=== PATIENT | female | born 1940 | race Caucasian/White ===

== ENCOUNTER 2016-12-07 06:40 | Inpatient (IN) | payer OTHER ==
[~2016-12-07] VITALS: Ht 162.6 cm; Wt 61.2 kg
[2016-12-07] VITALS (8 sets, daily range): BP systolic 132–194; BP diastolic 73–105; PULSE 56–82; TEMP 36.4–36.7; O2SAT 97–100; Ht 162.6 cm; Wt 61.2 kg
[~2016-12-07 06:40] MED LIST: ACET-1256 PO; ALBU1AER9 INH; AMLO-114 PO; ATEN50TA8 PO; ATV5 PO; FLUT0.0529 NAE; FLUT1INH3 PO; FURO-85 PO; GABA1CAP4 PO; IMD/2 PO; LISI40TA PO; MULT-506 PO; OMEG10007 PO; OXGN; SERT-234 PO; TEMA15CA4 PO; UMEC1AER PO
--- NOTE | 2016-12-07 06:52 | EMERGENCY ROOM VISIT NOTE ---
History Report prepared by Johanibjodi: Payton Green Under the Supervision of: Dr. Jose Frias M.D. First contact with patient: 06:43 Chief Complaint: FALL Stated Complaint: WEAK LEG/FALL History of Present Illness The patient is a 76 year old female who presents to the Emergency Room via ambulance from [place] with complaints of right sided weakness that began last night. This morning when the patient woke up to use the bathroom, she fell twice on her way to the bathroom. She notes that it took her about 35 minutes to get up from the ground during her fall within the past 2 hours. She attributes her falls to her right sided weakness. Denies loss of consciousness or any injuries from the fall. The patient reports that she "didn't feel right" a month ago causing a fall for which she was evaluated in the ED and discharged home. Denies headaches, neck pain, cough, respiratory symptoms, chest pain, melena, hematochezia, urinary symptoms, or other complaints. She is not on a blood thinner. She wears 2L nasal canula oxygen at home at all times. Source of History: patient, EMS Onset: last night Position: other (right side) Timing: other (persistent) Associated Symptoms: No LOC, No SOB, No chest pain, No headache, No hematochezia, No melena, No neck pain, No urinary symptoms Review of Systems See HPI for pertinent positives & negatives. A total of 10 systems reviewed and were otherwise negative. Past Medical & Surgical Medical Problems: (1) COPD (chronic obstructive pulmonary disease) (2) COPD (chronic obstructive pulmonary disease) (3) Crohn's disease (4) Depression (5) Ectopic (6) HLD (hyperlipidemia) (7) HTN (hypertension) (8) Osteoporosis (9) Right sided weakness Surgical Problems: (1) H/O colonoscopy (2) History of cataract surgery (3) History of esophagogastroduodenoscopy (EGD) (4) S/P laser trabeculoplasty of eye Old medical records were reviewed. Nurse's notes were reviewed and I agree with. Denies anticoagulation use. Denies diabetes. Family History FH: cancer FH: gallbladder disease FH: lung disease Kidney stones Social History Drug Use: none Marital Status: Housing Status: assisted living Occupation Status: retired Current/Historical Medications Scheduled Amlodipine (Norvasc), 10 MG PO DAILY Atenolol (Tenormin), 75 MG PO BID Fish Oil ([place]-3), 1 CAP PO DAILY Fluticasone Furoate (Inhalatio (Arnuity Ellipta), 1 PUFF PO DAILY Fluticasone Propionate (Nasal) (Flonase Allergy Relief), 2 SPRAYS ZBIGNIEW QPM Gabapentin (Gabapentin), 300 MG PO TID Lisinopril (Zestril), 40 MG PO DAILY Multivitamin (Multivitamin), 1 TAB PO DAILY Oxygen (Oxygen), 2.5 LITERS NA CONTINOUS Sertraline (Zoloft), 100 MG PO DAILY Temazepam (Restoril), 30 MG PO HS Umeclidinium-Vilanterol (Anoro Ellipta 62.5-25 Mcg/INH), 1 PUFF PO DAILY Scheduled PRN Acetaminophen (Tylenol), 1,000 MG PO Q6H PRN for Pain Albuterol Sulfate (Proair Respiclick), 2 PUFF INH Q4 PRN for SOB/Wheezing Loperamide Hcl (Imodium), 2 MG PO DAILY PRN for Diarrhea Lorazepam (Ativan *), 0.5 MG PO BID PRN for Anxiety Allergies Coded Allergies: No Known Allergies (Unverified , 06/20/16) Physical Exam Vital Signs Date Time Temp Pulse Resp B/P Pulse Ox O2 Delivery O2 Flow Rate FiO2 12/07/16 08:55 59 16 191/88 12/07/16 06:50 61 12/07/16 06:48 36.4 66 20 185/100 95 Nasal Cannula 3.0 Physical Exam General: Non-ill appearing older female, well developed well nourished in no acute distress. Normal speech HEENT: Normal cephalic atraumatic. Pupils are equal round and reactive to light. Extraocular movements are intact. Oropharynx is pink with moist mucous membranes. No swelling of the mouth lips or tongue. Neck: Supple with a midline trachea. No meningeal signs or stiffness, no JVD or bruits. No Stridor. Chest: Clear to auscultation bilaterally. No wheezes or rhonchi. No increased work of breathing. Heart: regular rate and rhythm. Abdomen: Soft nontender, nondistended without rebound guarding or rigidity. Extremities: No cyanosis clubbing or edema. No calf tenderness or assymetry Spine/Back. Non tender to palpation. No CVA tenderness Skin: Good turgor without rashes. Neurologic exam: Cranial nerves two through 12 are intact. GCS 15. Questionable mild weakness of right arm compared to left arm. 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 Medical Decision & Procedures ER Provider Diagnostic Interpretation: Radiology results as stated below per my review and radiologist interpretation: CHEST ONE VIEW PORTABLE CLINICAL HISTORY: CHEST PAIN dyspnea COMPARISON STUDY: 06/21/2016 FINDINGS: Chronic pleural reactive change right base. Chronic interstitial prominence right and to lesser extent left lung base. Mid and upper lungs are considered clear. IMPRESSION: Chronic pleural and parenchymal change right base. No acute process. Electronically signed by: Balwinder Hubbard M.D. 12/07/2016 7:29 AM Dictated Date/Time: 12/07/2016 7:[address] CT DOSE: 729.78 mGycm HISTORY: Trauma. Mental status change. fall, right sided weakness TECHNIQUE: Multiaxial CT images of the head were performed without the use of intravenous contrast. Comparison: 02/27/2010 Findings: The paranasal sinuses and mastoid air cells are clear. The calvarium and skull base are intact. The ventricles and sulci are within normal limits. There is no mass, hematoma, midline shift, or acute infarct. Chronic small vessel change of aging throughout both cerebral hemispheres. No acute intracranial hemorrhage. Impression: Chronic and age-related change. No acute intracranial abnormality. Electronically signed by: Balwinder Hubbard M.D. 12/07/2016 8:00 AM Dictated Date/Time: 12/07/2016 7:58 AM Laboratory Results 12/07/16 07:00 Red Blood Count 4.20, Mean Corpuscular Volume 91.2, Mean Corpuscular Hemoglobin 28.6, Mean Corpuscular Hemoglobin Concent 31.3, Mean Platelet Volume 10.2, Neutrophils (%) (Auto) 55.1, Lymphocytes (%) (Auto) 32.3, Monocytes (%) (Auto) 9.6, Eosinophils (%) (Auto) 2.6, Basophils (%) (Auto) 0.2, Neutrophils # (Auto) 2.80, Lymphocytes # (Auto) 1.64, Monocytes # (Auto) 0.49, Eosinophils # (Auto) 0.13, Basophils # (Auto) 0.01 12/07/16 07:00 Test 12/07/16 07:00 12/07/16 07:06 White Blood Count 5.08 K/uL (4.8-10.8) Red Blood Count 4.20 M/uL (4.2-5.4) Hemoglobin 12.0 g/dL (12.0-16.0) Hematocrit 38.3 % (37-47) Mean Corpuscular Volume 91.2 fL (80-100) Mean Corpuscular Hemoglobin 28.6 pg (25-34) Mean Corpuscular Hemoglobin Concent 31.3 g/dl (32-36) Platelet Count 192 K/uL (130-400) Mean Platelet Volume 10.2 fL (7.4-10.4) Neutrophils (%) (Auto) 55.1 % Lymphocytes (%) (Auto) 32.3 % Monocytes (%) (Auto) 9.6 % Eosinophils (%) (Auto) 2.6 % Basophils (%) (Auto) 0.2 % Neutrophils # (Auto) 2.80 K/uL (1.4-6.5) Lymphocytes # (Auto) 1.64 K/uL (1.2-3.4) Monocytes # (Auto) 0.49 K/uL (0.11-0.59) Eosinophils # (Auto) 0.13 K/uL (0-0.5) Basophils # (Auto) 0.01 K/uL (0-0.2) RDW Standard Deviation 43.0 fL (36.4-46.3) RDW Coefficient of Variation 12.9 % (11.5-14.5) Immature Granulocyte % (Auto) 0.2 % Immature Granulocyte # (Auto) 0.01 K/uL (0.00-0.02) Prothrombin Time 10.0 SECONDS (9.0-12.0) Prothromb Time International Ratio 0.9 (0.9-1.1) Activated Partial Thromboplast Time 24.4 SECONDS (21.0-31.0) Partial Thromboplastin Ratio 0.9 Anion Gap 3.0 mmol/L (3-11) Est Creatinine Clear Calc Drug Dose 66.8 ml/min Estimated GFR () 101.2 Estimated GFR (Non- 87.3 BUN/Creatinine Ratio 43.3 (10-20) Estimated Average Glucose 128 mg/dl Hemoglobin A1c 6.1 % (4.5-5.6) Calcium Level 8.4 mg/dl (8.5-10.1) Total Bilirubin 0.2 mg/dl (0.2-1) Direct Bilirubin < 0.1 mg/dl (0-0.2) Aspartate Amino Transf (AST/SGOT) 20 U/L (15-37) Alanine Aminotransferase (ALT/SGPT) 22 U/L (12-78) Alkaline Phosphatase 74 U/L (45-117) Total Creatine Kinase 140 U/L (26-192) Total Protein 6.5 gm/dl (6.4-8.2) Albumin 3.4 gm/dl (3.4-5.0) Lipase 194 U/L (73-393) Bedside Troponin I 0.000 ng/ml (0-0.045) Laboratory studies as stated above per my review. Medications Administered Medications (Trade) Dose Ordered Sig/Ashlee Route Start Time Stop Time Status Last Admin Dose Admin Aspirin (Aspirin Chew) 324 mg NOW STAT PO 12/07/16 08:46 12/07/16 08:47 DC 12/07/16 08:51 324 MG Acetaminophen (Tylenol Tab) 650 mg Q4H PRN PO 12/07/16 10:15 01/06/17 10:14 12/07/16 12:02 650 MG ECG Indication: weakness Rate (beats per minute): 60 Rhythm: normal sinus Findings: T-wave inversion (Lateral), other (no arrhythmia) Comparison ECG Date: 06/20/16 Change: no significant change ED Course 0644: Past medical records reviewed. The patient was evaluated in room A2, and a complete history and physical examination were performed. 0846: Ordered Aspirin 324 mg PO. 0910: Upon reevaluation, the patient is resting comfortably. I discussed the results and treatment plan with the patient. She verbalized agreement of the treatment plan. The patient will be evaluated for further management. 0933: I discussed the case with Loraine Dickey PA-C - [facility]. The patient will be evaluated for further management. Medical Decision Differentials include CVA, intracranial hemorrhage, arrhythmia, infection, anemia, electrolyte or metabolic abnormality. This patient comes in as described above. She fell twice last evening. She said starting last evening, she felt mildly weak in her right side. she feels well at present. On exam, she has questionable minimal weakness of the right arm compared to the left other than that is neurologically intact. She is alert and oriented 3. She has no reported injuries. She did fall a month ago as well and tends to fall. IV access established, EKG was obtained and multiple blood tests was obtained. she was placed on gas prover. CAT scan of her head was also obtained. She is not a TPA candidate given the fact that this occurred many hours ago outside the 6 hour window and her symptoms are minimal at present additionally. CAT scan of her head was unremarkable. She has no acute electrolyte or metabolic abnormalities rest of her workup is unremarkable, she has nothing to suggest that she has acute cardiac disease. I do think she is admitted for further treatment and evaluation from a neurologic standpoint. She was given aspirin 324 mg chewable. I have consulted the hospitalist group and they will see her in the ED. Consults Time Called: 08 Consulting Physician: [facility] Returned Call: [phone] I discussed the case with her. The patient will be evaluated for further management. Impression Primary Impression: Right sided weakness Additional Impression: Multiple falls Scribe Attestation The scribe's documentation has been prepared under my direction and personally reviewed by me in its entirety. I confirm that the note above accurately reflects all work, treatment, procedures, and medical decision making performed by me. Departure Information Dispostion Being Evaluated By Hospitalist Patient Instructions My [facility] Stroke History Time Last Known Well 1999 yesterday Stroke t-PA Criteria Reviewed Does NOT meet criteria for t-PA Reason t-PA Not Given Contraindicated Problem Qualifiers
[2016-12-07 07:18] LABS: BASO % 0.2 %; BASO ABS # 0.01 K/uL (0-0.2); COMPLETE YES; EOS % 2.6 %; HEMATOCRIT 38.3 % (37-47); IG% 0.2 %; LYMPH % 32.3 %; LYMPH ABS # 1.64 K/uL (1.2-3.4); MEAN CELL VOLUME 91.2 fL (80-100); MEAN CORPUSCULAR HEMOGLOBIN 28.6 pg (25-34); MEAN CORPUSCULAR HGB CONC 31.3 g/dl (32-36); MEAN PLATELET VOLUME 10.2 fL (7.4-10.4); MONO % 9.6 %; NEUT % 55.1 %; PLATELET COUNT 192 K/uL (130-400); WHITE BLOOD COUNT 5.08 K/uL (4.8-10.8)
[2016-12-07] MEDS ORDERED: TEMA30CA4 PO (07:26)
[2016-12-07] MEDS ORDERED: FLUT0.15 NAE (07:26)
[2016-12-07] MEDS ORDERED: ALBU18002 INH (07:26)
[2016-12-07 07:28] LABS: INR 0.9 (0.9-1.1); PARTIAL THROMBOPLASTIN RATIO 0.9
[2016-12-07 07:29] LABS: ALT/SGPT 22 U/L (12-78); AST/SGOT 20 U/L (15-37); BLOOD UREA NITROGEN 26 mg/dl (7-18); BUN/CREATININE RATIO 43.3 (10-20); CALCIUM 8.4 mg/dl (8.5-10.1); CARBON DIOXIDE 33 mmol/L (21-32); CHLORIDE 108 mmol/L (98-107); GLUCOSE 103 mg/dl (70-99); POTASSIUM 3.8 mmol/L (3.5-5.1); SODIUM 144 mmol/L (136-145)
--- NOTE | 2016-12-07 07:31 | DIAGNOSTIC IMAGING REPORT ---
CHEST ONE VIEW PORTABLE CLINICAL HISTORY: CHEST PAIN dyspnea COMPARISON STUDY: 06/21/2016 FINDINGS: Chronic pleural reactive change right base. Chronic interstitial prominence right and to lesser extent left lung base. Mid and upper lungs are considered clear. IMPRESSION: Chronic pleural and parenchymal change right base. No acute process. Electronically signed by: Balwinder Hubbard M.D. 12/07/2016 7:29 AM Dictated Date/Time: 12/07/2016 7:28 AM
[2016-12-07 07:35] LABS: ALKALINE PHOSPHATASE 74 U/L (45-117); CKMB/CK RATIO 3.5 (0-3.0)
--- NOTE | 2016-12-07 08:01 | DIAGNOSTIC IMAGING REPORT ---
HEAD CT NONCONTRAST CT DOSE: 729.78 mGycm HISTORY: Trauma. Mental status change. fall, right sided weakness TECHNIQUE: Multiaxial CT images of the head were performed without the use of intravenous contrast. Comparison: 02/27/2010 Findings: The paranasal sinuses and mastoid air cells are clear. The calvarium and skull base are intact. The ventricles and sulci are within normal limits. There is no mass, hematoma, midline shift, or acute infarct. Chronic small vessel change of aging throughout both cerebral hemispheres. No acute intracranial hemorrhage. Impression: Chronic and age-related change. No acute intracranial abnormality. Electronically signed by: Balwinder Hubbard M.D. 12/07/2016 8:00 AM Dictated Date/Time: 12/07/2016 7:58 AM
[2016-12-07] MEDS ORDERED: ASPIRIN 81 MG CHEW PO STA (08:46)
[2016-12-07] MEDS ORDERED: NITROGLYCERIN 0.4 MG SL PER TAB CHARGE SL PRN (10:15)
[2016-12-07] MEDS ORDERED: ONDANSETRON INJ 2 MG/ML 2 ML VIAL IV PRN (10:15)
[2016-12-07] MEDS ORDERED: PHARMACIST DISCHARGE MED REC CONSULT PRN (10:15)
[2016-12-07] MEDS ORDERED: OXGN (10:24)
[2016-12-07] MEDS ORDERED: LOPERAMIDE HCL 2 MG CAP PO PRN (10:30)
[2016-12-07] MEDS ORDERED: ALBUTEROL HFA 8 GM INHALER INH PRN (10:45)
[2016-12-07 11:27] LABS: ESTIMATED AVERAGE GLUCOSE 128 mg/dl; HA1C FLAG Normal (Normal)
[2016-12-07] MEDS: ACETAMINOPHEN 325 MG TAB PO PRN (12:02)
[2016-12-07] MEDS: ENOXAPARIN 40 MG/0.4 ML SYR SC SCH (12:02)
--- NOTE | 2016-12-07 12:27 | History and Physical ---
History & Physical Date & Time of Service: Dec 07, 2016 at 10:27 Chief Complaint: Weak Leg/Fall Primary Care Physician: Jose Juan Alejandra III, M.D. History of Present Illness Source: patient This is a 76 y/o female with PMHx of COPD on 2.5L O2, Crohns Dz, HTN, Dyslipidemia and other problems as outlined below who presents to the ED from [facility] c/o R sided weakness that began yesterday. Pt reports that yesterday she noticed she was "veering to the right side" with ambulation. This morning she got up around 0500 to use the bathroom and fell onto her R side due to the R sided weakness. It took her 30 minutes to get herself up and then she fell a second time. She called for the nurses and they recommended she go to the ED. Pt mentions she fell about a month ago and has not felt "right" since then. She feels like since the fall a month ago her speech has been slower. Currently, patient is complaining of a headache but otherwise feels at her baseline. Pt denies visual changes, slurred speech, facial droop or difficulty swallowing. Pt currently lives alone in independent living at [facility]. She typically uses a walker to assist with ambulation. Pt has a history of HTN on Lisinopril, atenolol and Norvasc. Patient stopped taking the Norvasc about 6 months ago on her own accord as she thought her BP was too low. Pt denies fever/chills, visual changes, diaphoresis, chest pain, palpitations, SOB, wheezing, abd pain, N/V, bowel or bladder issues, LE edema, calf pain, lightheadedness/dizziness. In the ED, BP is elevated (185/100) on arrival. Pt is afebrile with no leukocytosis. Trop is negative and EKG is unchanged. CT head is negative for acute process. Pt is stable and will be admitted for further evaluation and treatment. Past Medical/Surgical History Medical Problems: (1) COPD (chronic obstructive pulmonary disease) Status: Chronic (2) COPD (chronic obstructive pulmonary disease) Status: Chronic (3) Crohn's disease Status: Chronic (4) Depression Status: Chronic (5) Ectopic Status: Chronic (6) HLD (hyperlipidemia) Status: Chronic (7) HTN (hypertension) Status: Chronic (8) Osteoporosis Status: Chronic Surgical Problems: (1) H/O colonoscopy Status: Chronic (2) History of cataract surgery Status: Chronic (3) History of esophagogastroduodenoscopy (EGD) Status: Chronic (4) S/P laser trabeculoplasty of eye Status: Chronic Family History FH: cancer FH: gallbladder disease FH: lung disease Kidney stones Social History Smoking Status: Former Smoker (25 pack year history; quit 2000) Alcohol Use: none Drug Use: none Marital Status: Housing status: lives alone 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 Immunizations History of Influenza Vaccine: Yes Influenza Vaccine Date: Jun 09, 2013 History of Tetanus Vaccine?: Yes Tetanus Immunization Date: Oct 09, 1989 History of Pneumococcal: Yes Pneumococcal Date: Oct 09, 1989 History of Hepatitis B Vaccine: Yes Hepatitis Immunization Date: Sep 10, 1994 Multi-Drug Resistant Organisms History of MDRO: No Allergies Coded Allergies: No Known Allergies (Unverified , 06/20/16) Home Medications Scheduled Amlodipine (Norvasc), 10 MG PO DAILY Atenolol (Tenormin), 75 MG PO BID Fish Oil ([place]-3), 1 CAP PO DAILY Fluticasone Furoate (Inhalatio (Arnuity Ellipta), 1 PUFF PO DAILY Fluticasone Propionate (Nasal) (Flonase Allergy Relief), 2 SPRAYS ZBIGNIEW QPM Gabapentin (Gabapentin), 300 MG PO TID Lisinopril (Zestril), 40 MG PO DAILY Multivitamin (Multivitamin), 1 TAB PO DAILY Oxygen (Oxygen), 2.5 LITERS NA CONTINOUS Sertraline (Zoloft), 100 MG PO DAILY Temazepam (Restoril), 30 MG PO HS Umeclidinium-Vilanterol (Anoro Ellipta 62.5-25 Mcg/INH), 1 PUFF PO DAILY Scheduled PRN Acetaminophen (Tylenol), 1,000 MG PO Q6H PRN for Pain Albuterol Sulfate (Proair Respiclick), 2 PUFF INH Q4 PRN for SOB/Wheezing Loperamide Hcl (Imodium), 2 MG PO DAILY PRN for Diarrhea Lorazepam (Ativan *), 0.5 MG PO BID PRN for Anxiety Review of Systems Constitutional: + fatigue, + weakness, No chills, No fever, No sweats Eyes: No diplopia, No worsening of vision Respiratory: No cough, No shortness of breath Cardiovascular: No chest pain, No claudication, No edema Abdomen: + diarrhea (intermittent due to Crohns (@baseline)), No GI bleeding, No constipation, No nausea, No pain, No vomiting Musculoskeletal: No calf pain, No swelling Genitourinary - Female: No dysuria Neurologic: + weakness (R sided) Psychiatric: No depression symptoms Endocrine: No fatigue Hematologic / Lymphatic: No abnormal bleeding/bruising Integumentary: No new/changing skin lesions Physical Exam Vital Signs Date Time Temp Pulse Resp B/P Pulse Ox O2 Delivery O2 Flow Rate FiO2 12/07/16 06:50 61 12/07/16 06:48 36.4 66 20 185/100 95 Nasal Cannula 3.0 General Appearance: WD/WN, no apparent distress, + pertinent finding (Pt is laying in bed with son at bedside ) Head: normocephalic, atraumatic Eyes: normal inspection, PERRL, EOMI ENT: hearing grossly normal Neck: supple Respiratory/Chest: chest non-tender, lungs clear, normal breath sounds, no respiratory distress Cardiovascular: regular rate, rhythm, no edema, no murmur Abdomen/GI: normal bowel sounds, non tender, soft Back: normal inspection Extremities/Musculoskelatal: normal inspection, no calf tenderness, no pedal edema 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2 7.4-10.4 fL Neutrophils (%) (Auto) 55.1 % Lymphocytes (%) (Auto) 32.3 % Monocytes (%) (Auto) 9.6 % Eosinophils (%) (Auto) 2.6 % Basophils (%) (Auto) 0.2 % Neutrophils # (Auto) 2.80 1.4-6.5 K/uL Lymphocytes # (Auto) 1.64 1.2-3.4 K/uL Monocytes # (Auto) 0.49 0.11-0.59 K/uL Eosinophils # (Auto) 0.13 0-0.5 K/uL Basophils # (Auto) 0.01 0-0.2 K/uL RDW Standard Deviation 43.0 36.4-46.3 fL RDW Coefficient of Variation 12.9 11.5-14.5 % Immature Granulocyte % (Auto) 0.2 % Immature Granulocyte # (Auto) 0.01 0.00-0.02 K/uL Prothrombin Time 10.0 9.0-12.0 SECONDS Prothromb Time International Ratio 0.9 0.9-1.1 Activated Partial Thromboplast Time 24.4 21.0-31.0 SECONDS Partial Thromboplastin Ratio 0.9 Sodium Level 144 136-145 mmol/L Potassium Level 3.8 3.5-5.1 mmol/L Chloride Level 108 98-107 mmol/L Carbon Dioxide Level 33 21-32 mmol/L Anion Gap 3.0 3-11 mmol/L Blood Urea Nitrogen 26 7-18 mg/dl Creatinine 0.60 0.60-1.20 mg/dl Est Creatinine Clear Calc Drug Dose 66.8 ml/min Estimated GFR () 101.2 Estimated GFR (Non- 87.3 BUN/Creatinine Ratio 43.3 10-20 Random Glucose 103 70-99 mg/dl Calcium Level 8.4 8.5-10.1 mg/dl Total Bilirubin 0.2 0.2-1 mg/dl Direct Bilirubin < 0.1 0-0.2 mg/dl Aspartate Amino Transf (AST/SGOT) 20 15-37 U/L Alanine Aminotransferase (ALT/SGPT) 22 12-78 U/L Alkaline Phosphatase 74 45-117 U/L Total Creatine Kinase 140 26-192 U/L Creatine Kinase MB 4.9 0.5-3.6 ng/ml Creatine Kinase MB Ratio 3.5 0-3.0 Total Protein 6.5 6.4-8.2 gm/dl Albumin 3.4 3.4-5.0 gm/dl Lipase 194 73-393 U/L Bedside Troponin I 0.000 0-0.045 ng/ml Diagnostic Radiology CXR IMPRESSION: Chronic pleural and parenchymal change right base. No acute process CT HEAD Impression: Chronic and age-related change. No acute intracranial abnormality. EKG EG: NSR at 60 bpm with T wave inversions noted in lateral leads; no change when compared to EKG from 06/20/16 Impression Assessment and Plan R SIDED WEAKNESS; R/O CVA pt presents with R sided weakness causing multiple falls this morning -admit to telemetry -RFs include HTN, Dyslipidemia -head CT is negative; obtain MRI brain, MRA head and neck for further evaluation -obtain echo to r/o any cardiac abnormalities -neuro checks q4h -fasting lipids in AM -start ASA and statin -PT/OT -Pt is not a candidate for Tpa at this time 2* to time elapsed since onset of sxs -consult speech to evaluate swallowing -NPO until speech eval is complete -consult neuro, Dr. Randle-pending input -allow for permissive HTN in setting of possible CVA -continue to monitor AMBULATORY DYSFUNCTION -2 falls this morning secondary to R sided weakness ( see HPI) -pt denies pain; -fall precautions -PT/OT evals SEVERE COPD ON O2 -no evidence of acute exacerbation -cont inhalers -cont supplemental O2 CROHN'S DISEASE -stable -cont Imodium PRN DEPRESSION/ANXIETY -stable -cont Zoloft and Ativan PRN HTN -BP elevated; allowing for permissive HTN in setting of possible CVA -cont lisinopril and atenolol -hold Norvasc for now as patient stopped taking on her own 6 months ago- consider restarting if needed -monitor DYSLIPIDEMIA -check fasting lipid panel -cont statin DVT PROPHYLAXIS -subq Lovenox CODE STATUS -DNR per discussion with patient upon admission. Pt has a living will. DISPO Pt was seen in collaboration with Dr. Luis. Please see his addendum for further details. Thanks! Attending Note: Patient is a 76 yr old female with PMH of COPD, HTN, HLP, Crohn's disease presents with history of right sided weakness and multiple falls. She apparently started leaning to the right side with ambulation several days ago and fell on multiple occasions in last few weeks. Reports her speech has been slower and also complains of headache. Denies any history of head trauma today. Denies any LOC, facial deformity, bowel/bladder incontinence, change in vision. Offers no other relevant history. Physical Exam: Vitals signs as noted above General Appearance:Moderately built and nourished, no apparent distress Head: normocephalic, Atraumatic Eyes: normal inspection, EOMI, PERRL Neck: supple, Trachea midline Respiratory/Chest: Normal breath sounds, CTA Cardiovascular: S1, S2, NSR, No murmur Abdomen/GI:Soft, Non tender, Bowel sounds present Extremities/Musculoskelatal:normal inspection, no edema Neurologic/Psych:AAOX3, + LLE weakness 3/5 Skin:normal color,warm Assessment and Plan: CVA: Not a candidate for TPA MRI Brain: findings suggestive of small acute/subacute infarction of left external capsule; Old right thalamic lacunar infarct Will do complete CVA work up Start ASA, plavix, lipitor Neuro checks Neurology consulted PT/OT Speech eval Allow permissive HTN in setting of acute CVA DVT PX: Lovenox SQ I personally reviewed the record. Patient is interviewed and examined at bedside. Patient's care is coordinated with Parisa Caputo PA-C. Please refer to the documentation above for details of patient's presentation and for discussion of other issues. VTE Prophylaxis VTE Risk Assessment Done? Y/N: Yes Risk Level: Moderate
[2016-12-07] MEDS: GABAPENTIN 300 MG CAP PO SCH ×2 (14:31→19:45)
--- NOTE | 2016-12-07 14:50 | NEUROLOGY CONSULTATION ---
DATE OF CONSULTATION: 12/07/2016 DATE OF CONSULTATION: 12/07/2016. HISTORY OF PRESENT ILLNESS: Polly is 76 years old, is known to Dr. Jose Juan Alejandra, resides in the apartment unit at [facility] and has a past history of COPD, O2 dependent, Crohn's disease, hypertension, dyslipidemia and presented to the ER from her apartment today with complaints of right-sided weakness that apparently began a day or 2 ago. She apparently started leaning to the right side with ambulation several days ago and has had some falls over the past few weeks, 1 resulting in some facial injuries and evaluated by her primary care physician. Apparently she awakened at about 5:00 a.m. to use the bathroom, fell down on her right side due to right-sided weakness, took a long time for her to get up, called for the nurses and then they recommended she come to the ER. It is not clear what happened a month ago. Whether or not she had right-sided weakness for that fall was unclear, but she has not felt quite right since. She feels her speech has been slower and she apparently has been complaining about headache. She was admitted from the ER. I saw her not long ago. At this time, she feels she is back to almost normal, although she has not been walking. There was no real visual changes, problems with word finding, actual slurring of speech, facial droop, problems swallowing and she was able to function at [place] up until this morning, although apparently there was some gradual weakness of the right side over the last day. Again, a lot of this is very unclear. PAST MEDICAL HISTORY: Does show the COPD, O2 dependent, Crohn's disease, depression, ectopic , hyperlipidemia, hypertension, osteoporosis. PAST SURGICAL HISTORY: Surgically she has had a colonoscopy, cataract surgery, she has had an EGDs and laser trabeculectomy of the right eye. FAMILY HISTORY: Positive for cancer, gallbladder disease, lung disease and kidney stones. SOCIAL HISTORY: Reveals her to to be former smoker. She does not consume ethanol. She is . She lives alone but independently in the apartment units at [facility]. Her immunizations are up-to-date. There is no history of multiple drug resistant organisms. ALLERGIES: She has no coded allergies. HOME MEDICATIONS: Include amlodipine, atenolol, fish oil, fluticasone, gabapentin 300 mg 3 times a day, lisinopril, multivitamins, oxygen at 2.5 liters continuously, sertraline, temazepam, Brio Ellipta inhaler. P.R.N. MEDICATIONS include Tylenol, loperamide, lorazepam and she apparently has not been taking more of this than usual. SYSTEM REVIEW: Again reveals some fatigue and not feeling quite right after her fall, otherwise no new issues referable to her general systems. She has no issues referable to the head, eyes, ears, nose and throat. She has had some intermittent diarrhea due to Crohn's disease. She has had no dysuria or bladder function. No cardiopulmonary issues other than her COPD and neurologically she has had the falls, but denies any history of prior strokes. PHYSICAL EXAMINATION: VITAL SIGNS: On exam in the Emergency Room, her blood pressure was 185/100, pulse was 66, respirations were 20. She was afebrile. GENERAL: She was a thin woman who appeared to be her stated age. HEAD, EYES, EARS, NOSE, AND THROAT EXAMINATION: Free of deformities. Eyes were normal. Pupils are equal, round and reactive to light. No carotid bruits were heard. LUNGS: Were clear. HEART: Had a regular rhythm. No murmurs were appreciated. No peripheral edema. ABDOMEN: Soft, nontender. NEUROLOGIC: Today, she is awake, alert, oriented in 3 spheres. Eye movements are normal. Visual gillette are full. I do not see any nystagmus. Pupils seemed to be fine. Ocular fundi are poorly seen. Facial motility and strength is normal. Facial sensation is normal. Oropharyngeal and lingual movements are normal. Speech is clear. Tongue protrudes in the midline. I did not get her up to walk, but she has no drift or pronation sign, tremor, tics or choreiform activity. Facility of rapid repetitive motion is excellent in the arms and legs. I cannot detect any extensor toe signs or Nancy's sign on either side. Gross strength testing is normal. I do not see any atrophy or fasciculations. Sensory examination reveals a little loss of vibratory sense distally over both feet but is otherwise unremarkable. Basic laboratory studies including CBC, chemistry screen, etc. all appear to be within normal limits. Chest x-ray shows some chronic parenchymal changes and fluid at the right base. CT showed some leukoencephalopathy, but nothing acute. EKG shows a regular sinus rhythm. It is not clear what is going on here. She could have had a small lacunar infarction or deep subcortical hemispheric infarction on the left but the exam is really not that impressive. We will wait to see what an MRI/MRA shows and these have been appropriately ordered. She is on aspirin and statin, apparently was not on aspirin before. I will take a look at her in the morning. I would also check a carotid duplex and echo and I believe these have been ordered appropriately. Addendum MRI shows a small infarction and plavix will be added in this setting I will see her tomorrow and review the other outstanding studies but antiplatelet rx would seem the best overall approach unless a clear cut source for cerebral emboli is seen on subsequent testing. VERONICA
[2016-12-07] MEDS ORDERED: GADAVIST IV PRN (17:00)
--- NOTE | 2016-12-07 17:16 | DIAGNOSTIC IMAGING REPORT ---
MRI OF THE BRAIN WITHOUT AND WITH IV CONTRAST CLINICAL HISTORY: Stroke HEAD TRAUMA. RIGHT-SIDED WEAKNESS. COMPARISON STUDY: Head CT dated 12/07/2016 TECHNIQUE: MRI of the brain was performed from the vertex to the skull base utilizing various T1 and T2 weighted sequences. Following the IV administration of 6 mL of Gadavist contrast, additional enhanced images were obtained. FINDINGS: Sagittal T1, axial diffusion, proton density and T2 weighted axial, coronal FLAIR, and pre and post axial T1-weighted images were acquired. These were supplemented with post gadolinium coronal T1 weighted images. No intra or extra-axial mass lesions are visualized. There is a 6 mm focus of restricted water diffusion in the region the posterior aspect the left external capsule. This is consistent with a small acute/subacute infarct. There is no evidence of ventricular dilatation. Proton density T2-weighted and FLAIR images reveal extensive foci of increased T2 signal within the white matter, likely on a small vessel basis. There is an old lacunar infarct in the right thalamus. There are no abnormal flow voids. There is no evidence of pathologic enhancement. There is a left maxilla sinus retention cyst. IMPRESSION: 1. 6 mm focus of restricted water diffusion in the region of the posterior aspect of the left external capsule. This is consistent with a small acute/subacute infarction 2. No evidence of intracranial mass 3. No evidence of hydrocephalus 4. Extensive foci of increased T2 signal within the white matter, likely on a small vessel basis 5. Old right thalamic lacunar infarct Electronically signed by: Travis Garnica M.D. 12/07/2016 5:15 PM Dictated Date/Time: 12/07/2016 5:10 PM
--- NOTE | 2016-12-07 17:23 | DIAGNOSTIC IMAGING REPORT ---
MR ANGIOGRAPHY OF THE [place]ACHE OF [place] NO CONTRAST CLINICAL HISTORY: Stroke. Head trauma. Right-sided weakness. COMPARISON STUDY: None. A 3-D [id number] MR angiographic sequence of the [place] was performed. Both the source and projection images were reviewed. There is no evidence of major intracranial branch occlusion. There is no evidence of intracranial stenosis. There are no lesions suspicious for aneurysm. There is an old right thalamic lacunar infarct. There is moderately severe white matter disease. IMPRESSION: No evidence of aneurysm. No evidence of intracranial stenosis. Electronically signed by: Travis Garnica M.D. 12/07/2016 5:21 PM Dictated Date/Time: 12/07/2016 5:20 PM
--- NOTE | 2016-12-07 17:26 | DIAGNOSTIC IMAGING REPORT ---
NECK MRA HISTORY: Stroke, head trauma, right-sided weakness. TECHNIQUE: [id number]-[id number] and gadolinium-enhanced MRA of the neck was performed both before and after the intravenous administration of contrast. All measurements were calculated based on NASCET criteria. The patient was administered 6 cc of intravenous Gadavist COMPARISON STUDY: None. FINDINGS: The study is compromised due to motion artifact. The aortic arch and proximal great vessels are widely patent. There is no significant stenosis, occlusion, or dissection identified within the bilateral common carotid, internal carotid, or vertebral arteries. Atheromatous changes are present both carotid bulbs. IMPRESSION: 1. Technically limited study secondary to motion artifact. 2. Atheromatous changes at the level of the carotid bulbs, but no evidence of hemodynamically significant carotid stenosis given the limitations of the examination 3. No evidence of vertebral or basilar artery stenosis Electronically signed by: Travis Garnica M.D. 12/07/2016 5:25 PM Dictated Date/Time: 12/07/2016 5:22 PM
[2016-12-07] MEDS ORDERED: ATORVASTATIN 40 MG TAB PO ONE (17:45)
[2016-12-07] MEDS ORDERED: NURSING VERBAL MED ORDER ONE (18:00)
[2016-12-07] MEDS ORDERED: CLOPIDOGREL BISULFATE 75 MG TAB PO ONE (18:15)
[2016-12-07] MEDS: IBUPROFEN 200 MG TAB PO PRN (18:28)
--- NOTE | 2016-12-07 18:51 | DIAGNOSTIC IMAGING REPORT ---
ULTRASOUND OF THE CAROTID ARTERIES CLINICAL HISTORY: Acute left hemispheric infarction COMPARISON STUDY: None. TECHNIQUE: Real-time, grayscale, and color Doppler sonography of the carotid arteries was performed. Imaging reviewed in the transverse and longitudinal planes. NASCET criteria was utilized for stenosis calcification. FINDINGS: There is moderate atherosclerotic plaque present . The peak systolic velocity within the right internal carotid artery is 103 cm/sec. The systolic velocity ratio of right internal to common carotid artery is 1.9. The peak systolic velocity within the left internal carotid artery is 138 cm/sec. The systolic velocity ratio left internal to common carotid artery is 2.3. Antegrade flow is seen in the vertebral arteries. The external carotid arteries are patent. Blood pressure in the right arm measured 208 mm/Hg. Blood pressure in the left arm measured 208 mm/Hg. IMPRESSION: 1. Moderate bilateral atheromatous changes. 2. 50-69% stenosis left internal carotid artery by velocity criteria. 3. Systemic systolic hypertension Electronically signed by: Travis Garnica M.D. 12/07/2016 6:50 PM Dictated Date/Time: 12/07/2016 6:45 PM
[2016-12-07] MEDS: FLUTICASONE PROPIONATE NA SPR 16 GM BTL NAE SCH (19:44)
[2016-12-07] MEDS: LORAZEPAM 0.5 MG TAB PO PRN (20:45)
[2016-12-07] MEDS: TEMAZEPAM 15 MG CAP PO SCH (20:48)
[2016-12-08] VITALS (11 sets, daily range): BP systolic 148–188; BP diastolic 66–96; PULSE 63–74; TEMP 36–36.7; O2SAT 95–99
[2016-12-08 05:01] LABS: URINE APPEARANCE CLEAR (CLEAR); URINE BILIRUBIN NEG (NEG); URINE COLOR YELLOW; URINE NITRITE NEG (NEG); URINE SPECIFIC GRAVITY 1.016 (1.000-1.030); UROBILINOGEN NEG (NEG)
[2016-12-08 05:11] LABS: MANUAL MICROSCOPIC REQUIRED? NO; REVIEW REQ? NO
[2016-12-08 06:14] LABS: BASO % 0.4 %; BASO ABS # 0.02 K/uL (0-0.2); COMPLETE YES; HEMATOCRIT 37.9 % (37-47); IG% 0.2 %; LYMPH % 31.8 %; MEAN CELL VOLUME 92.9 fL (80-100); MEAN CORPUSCULAR HEMOGLOBIN 28.7 pg (25-34); MEAN CORPUSCULAR HGB CONC 30.9 g/dl (32-36); MEAN PLATELET VOLUME 10.6 fL (7.4-10.4); MONO % 10.7 %; NEUT % 53.9 %; PLATELET COUNT 185 K/uL (130-400); RED BLOOD COUNT 4.08 M/uL (4.2-5.4); WHITE BLOOD COUNT 5.03 K/uL (4.8-10.8)
[2016-12-08 06:41] LABS: BUN/CREATININE RATIO 33.1 (10-20); CALCIUM 8.3 mg/dl (8.5-10.1); CREATININE 0.53 mg/dl (0.60-1.20); POTASSIUM 3.5 mmol/L (3.5-5.1)
[2016-12-08 06:44] LABS: CHOLESTEROL/HDL RATIO 5.3
[2016-12-08] MEDS: ASPIRIN 81 MG ECTAB PO SCH (08:13)
[2016-12-08] MEDS: ATORVASTATIN 40 MG TAB PO SCH (08:14)
[2016-12-08] MEDS: MULTIVITAMIN TAB PO SCH (08:15)
[2016-12-08] MEDS: GABAPENTIN 300 MG CAP PO SCH ×3 (08:16→20:32)
[2016-12-08] MEDS: OMEGA-3 (PURIFIED FISH OIL) 1 GM CAP PO SCH (08:16)
[2016-12-08] MEDS: CLOPIDOGREL BISULFATE 75 MG TAB PO SCH (08:17)
[2016-12-08] MEDS: SERTRALINE HCL 100 MG TAB PO SCH (08:17)
[2016-12-08] MEDS: LISINOPRIL 40 MG TAB PO SCH (08:18)
[2016-12-08] MEDS: IBUPROFEN 200 MG TAB PO PRN ×2 (08:25→22:20)
--- NOTE | 2016-12-08 08:44 | Progress Note ---
Internal Med Progress Note Date of Service: Dec 08, 2016. Provider Documentation: SUBJECTIVE: Patient is seen and examined at bedside. Headache has resolved. Has some RUE weakness. Denies any problems with speech. Denies chest pain, SOB, dizziness. Offers no other complaints. OBJECTIVE: Vital Signs-as noted below General Appearance:Moderately built and nourished, no apparent distress Head: normocephalic, Atraumatic Eyes: normal inspection, EOMI, PERRL Neck: supple, Trachea midline Respiratory/Chest: Normal breath sounds, CTA Cardiovascular: S1, S2, NSR, No murmur Abdomen/GI:Soft, Non tender, Bowel sounds present Extremities/Musculoskelatal:normal inspection, no edema Neurologic/Psych:AAOX3, + RUE weakness 4/5 Skin:normal color,warm Lab data as noted below. ASSESSMENT & PLAN: Acute CVA: Not a candidate for TPA MRI Brain: findings suggestive of small acute/subacute infarction of left external capsule; Old right thalamic lacunar infarct MRA Head/Neck, Carotid Doppler: reviewed. Results as below Continue ASA, Plavix, Lipitor Neuro checks Appreciate Neurology input PT/OT Resume HTN meds for better BP control ECHO pending AMBULATORY DYSFUNCTION Secondary to CVA Fall precautions PT/OT SEVERE COPD ON CHRONIC O2 No evidence of acute exacerbation continue home inhalers supplemental O2 CROHN'S DISEASE stable, In remission continue Imodium PRN DEPRESSION/ANXIETY stable continue Zoloft and Ativan PRN HTN Labile in setting of acute CVA Restart lisinopril, atenolol Patient not taking Norvasc 10mg since 6 months Also resume Norvasc (Start at 5mg daily, will increase to 10mg if necessary) Monitor DYSLIPIDEMIA continue statin DVT PX Lovenox SQ CODE STATUS DNR DISPOSITION: Continue monitoring in Tele Needs possible rehab/SNF placement procurement services manager consulted PROCEDURES: Neck MRA: 1. Technically limited study secondary to motion artifact. 2. Atheromatous changes at the level of the carotid bulbs, but no evidence of hemodynamically significant carotid stenosis given the limitations of the examination 3. No evidence of vertebral or basilar artery stenosis Head MRA: No evidence of aneurysm. No evidence of intracranial stenosis Brain MRI: 1. 6 mm focus of restricted water diffusion in the region of the posterior aspect of the left external capsule. This is consistent with a small acute/subacute infarction 2. No evidence of intracranial mass 3. No evidence of hydrocephalus 4. Extensive foci of increased T2 signal within the white matter, likely on a small vessel basis 5. 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 Moderate bilateral atheromatous changes. 2. 50-69% stenosis left internal carotid artery by velocity criteria. 3. Systemic systolic hypertension Vital Signs: Date Time Temp Pulse Resp B/P Pulse Ox O2 Delivery O2 Flow Rate FiO2 12/08/16 07:58 36.7 74 18 173/86 98 170/66 12/08/16 04:00 Nasal Cannula 2.5 12/08/16 04:00 36.0 63 18 159/90 99 Nasal Cannula 2.5 12/08/16 00:00 Nasal Cannula 2.5 12/07/16 23:17 36.5 56 22 132/73 98 Nasal Cannula 2.0 12/07/16 22:06 151/76 12/07/16 20:00 Nasal Cannula 2.5 12/07/16 19:49 36.4 63 16 179/102 100 Nasal Cannula 2.0 12/07/16 16:00 99 Nasal Cannula 2.5 12/07/16 15:34 36.7 67 20 189/89 99 Nasal Cannula 2.5 12/07/16 13:00 36.5 64 18 194/82 98 Nasal Cannula 2.5 12/07/16 12:00 70 12/07/16 11:44 98 Nasal Cannula 2.5 12/07/16 11:37 36.4 82 20 180/105 97 Nasal Cannula 2.5 12/07/16 11:37 98 Nasal Cannula 2.5 12/07/16 11:11 36.4 61 20 180/105 97 Nasal Cannula 2.5 12/07/16 10:40 63 16 201/93 12/07/16 10:33 61 Lab Results: Results Past 24 Hours Test 12/07/16 13:00 12/07/16 13:20 12/07/16 19:00 12/07/16 20:18 Range/Units Creatine Kinase MB Ratio 0-3.0 Creatine Kinase MB 6.4 6.1 0.5-3.6 ng/ml Troponin I < 0.015 < 0.015 0-0.045 ng/ml Test 12/08/16 04:15 12/08/16 05:15 Range/Units Urine Color YELLOW Urine Appearance CLEAR CLEAR Urine pH 6.0 4.5-7.5 Urine Specific [place] 1.016 1.000-1.030 Urine Protein NEG NEG Urine Glucose (UA) NEG NEG Urine Ketones NEG NEG Urine Occult Blood NEG NEG Urine Nitrite NEG NEG Urine Bilirubin NEG NEG Urine Urobilinogen NEG NEG Urine Leukocyte Esterase NEG NEG White Blood Count 5.03 4.8-10.8 K/uL Red Blood Count 4.08 4.2-5.4 M/uL Hemoglobin 11.7 12.0-16.0 g/dL Hematocrit 37.9 37-47 % Mean Corpuscular Volume 92.9 80-100 fL Mean Corpuscular Hemoglobin 28.7 25-34 pg Mean Corpuscular Hemoglobin Concent 30.9 32-36 g/dl Platelet Count 185 130-400 K/uL Mean Platelet Volume 10.6 7.4-10.4 fL Neutrophils (%) (Auto) 53.9 % Lymphocytes (%) (Auto) 31.8 % Monocytes (%) (Auto) 10.7 % Eosinophils (%) (Auto) 3.0 % Basophils (%) (Auto) 0.4 % Neutrophils # (Auto) 2.71 1.4-6.5 K/uL Lymphocytes # (Auto) 1.60 1.2-3.4 K/uL Monocytes # (Auto) 0.54 0.11-0.59 K/uL Eosinophils # (Auto) 0.15 0-0.5 K/uL Basophils # (Auto) 0.02 0-0.2 K/uL RDW Standard Deviation 43.8 36.4-46.3 fL RDW Coefficient of Variation 12.9 11.5-14.5 % Immature Granulocyte % (Auto) 0.2 % Immature Granulocyte # (Auto) 0.01 0.00-0.02 K/uL Sodium Level 144 136-145 mmol/L Potassium Level 3.5 3.5-5.1 mmol/L Chloride Level 106 98-107 mmol/L Carbon Dioxide Level 34 21-32 mmol/L Anion Gap 4.0 3-11 mmol/L Blood Urea Nitrogen 18 7-18 mg/dl Creatinine 0.53 0.60-1.20 mg/dl Est Creatinine Clear Calc Drug Dose 75.6 ml/min Estimated GFR () 105.4 Estimated GFR (Non- 90.9 BUN/Creatinine Ratio 33.1 10-20 Random Glucose 103 70-99 mg/dl Calcium Level 8.3 8.5-10.1 mg/dl Triglycerides Level 199 0-150 mg/dl Cholesterol Level 195 0-200 mg/dl HDL Cholesterol 37 mg/dl LDL Cholesterol, Calculated 118 mg/dl VLDL Cholesterol, Calculated 40 mg/dl Cholesterol/HDL Ratio 5.3 Microbiology Results 12/08/16 Urine Culture, Received Pending
[2016-12-08] MEDS ORDERED: AMLODIPINE BESYLATE 5 MG TAB PO SCH (09:00)
[2016-12-08] MEDS: LORAZEPAM 0.5 MG TAB PO PRN ×2 (09:32→20:33)
[2016-12-08] MEDS ORDERED: AMLODIPINE BESYLATE 5 MG TAB PO ONE (09:45)
[2016-12-08] MEDS ORDERED: POTASSIUM CHLORIDE 10 MEQ TABCR PO ONE (10:00)
[2016-12-08] MEDS: ENOXAPARIN 40 MG/0.4 ML SYR SC SCH (11:21)
--- NOTE | 2016-12-08 12:11 | PROGRESS NOTE ---
DATE: 12/08/2016 DATE: 12/08/2016. I saw Kyara today. She now has a sore shoulder on the right, so it is hard to assess her right upper extremity function but yesterday her exam was really without much in the way of focality. She has not yet been up walking. She feels that she is close to her old baseline, but is not sure yet whether she can get back to her apartment and frankly she may need some time at [facility] as she was having issues with walking for several days prior to this admission. We will see what physical therapy has to say. Thus far, the workup has indeed shown a deep small infarction in the left hemisphere in an area that would produce some right-sided weakness and incoordination and this is probably the event that occurred. She also has an old asymptomatic right thalamic infarction which happened probably years ago and she has no recall of any symptoms that might have been due to this. For now, Plavix has been added to aspirin, which I think is a reasonable choice. We do not have any evidence for significant extracranial vascular disease other than some 50-69% stenosis of the left internal carotid, which could have been a source of emboli, but is not of a significant degree of stenosis right now to warrant surgery. Frankly, I suspect this was a primary small vessel event, but because it happened ipsilateral to the carotid stenosis we probably will need to follow this up. I do not think we need to get vascular surgery involved at this time but may do so in the future. I will check back with her tomorrow and again we will see how she does in physical therapy and whether rehabilitation assessment is going to be needed and whether she may have to stay at [facility] for a week or so. VERONICA
--- NOTE | 2016-12-08 16:40 | ECHOCARDIOGRAM REPORT ---
*NOTICE TO RECEIVING LIBERTARIAN AGENCY This information is strictly Confidential and protected under [place] law. [place] law prohibits you from making any further disclosure of this information unless further disclosure is expressly permitted by the written consent of the person to whom it pertains or is authorized by law. A general authorization for the release of medical or other information is not sufficient for this purpose. Hospital accepts no responsibility if the information is made available to any other person, INCLUDING THE PATIENT. Interpretation Summary * Name: ARNULFO BUCIO Study Date: 12/08/2016 10:44 AM BP: 159/90 mmHg * Patient Location: .2E\S\E208\S\1 HR: 63 * : 1940 (M/d/yyyy) Gender: Female Height: 64 in * Age: 76 yrs Ethnicity: CA Weight: 131 lb * Ordering Physician: Tati Caputo * Performed By: Bre Sotelo RDCS * * Reason For Study: Stroke * BSA: 1.6 m2 * The study was technically adequate. * Compared to prior study, there is no significant change. * -- Conclusions -- * Left ventricular systolic function is normal. * Ejection Fraction = 65-70%. * Grade I diastolic dysfunction, (abnormal relaxation pattern). * Aortic valve sclerosis mild, without significant aortic valvular stenosis. Procedure Details * A complete two-dimensional transthoracic echocardiogram was performed (2D, M-mode, Doppler and color flow Doppler). Left Ventricle * The left ventricle is normal in size. * There is normal left ventricular wall thickness. * Ejection Fraction = 65-70%. * Left ventricular systolic function is normal. * The left ventricular wall motion is normal. Right Ventricle * The right ventricle is normal size. * The right ventricular systolic function is normal as assessed by tricuspid annular plane systolic excursion (TAPSE) (normal >1.5 cm). Atria * The left atrial size is normal. * Right atrial size is normal. * There is no evidence of atrial septal defect, but resolution does not allow assessment for a patent foramen ovale. Mitral Valve * There is moderate mitral annular calcification. * There is no mitral valve stenosis. * Significant mitral regurgitation is absent. Tricuspid Valve * The tricuspid valve is normal. * There is no tricuspid stenosis. * Significant tricuspid regurgitation is absent. Aortic Valve * The aortic valve is trileaflet. * Aortic valve sclerosis mild, without significant aortic valvular stenosis. * Aortic stenosis is absent. * There is no significant aortic regurgitation. Pulmonic Valve * The pulmonary valve is not well seen, but the Doppler examination is normal without significant regurgitation or stenosis. Great Vessels * The aortic root and proximal ascending aorta are normal sized. Pericardium/Pleural * There is no pericardial effusion. Great Vessels * Normal inferior vena cava diameter and respiratory variation suggests normal central venous pressure. Left Ventricular Diastolic Function * Grade I diastolic dysfunction, (abnormal relaxation pattern). MMode 2D Measurements and Calculations IVSd 1.3 cm LVIDd 3.7 cm LVIDs 2.4 cm LVPWd 1.0 cm IVS/LVPW 1.3 FS 36.4 % EDV(Teich) 59.5 ml ESV(Teich) 19.7 ml EF(Teich) 66.9 % EDV(cubed) 52.2 ml ESV(cubed) 13.5 ml EF(cubed) 74.2 % LV mass(C)d 141.9 grams LV mass(C)dI 86.8 grams/m\S\2 CO(Teich) 2.2 l/min CI(Teich) 1.4 l/min/m\S\2 SV(Teich) 39.8 ml SI(Teich) 24.4 ml/m\S\2 CO(cubed) 2.2 l/min CI(cubed) 1.3 l/min/m\S\2 SV(cubed) 38.8 ml SI(cubed) 23.7 ml/m\S\2 Ao root diam 2.8 cm Ao root area 6.1 cm\S\2 ACS 1.7 cm LA dimension 3.5 cm LA/Ao 1.3 LVOT diam 2.0 cm LVOT area 3.0 cm\S\2 LVAd ap4 19.6 cm\S\2 LVLd ap4 6.9 cm EDV(MOD-sp4) 44.8 ml LVAs ap4 10.2 cm\S\2 LVLs ap4 5.6 cm ESV(MOD-sp4) 16.5 ml EF(MOD-sp4) 63.2 % LVAd ap2 19.7 cm\S\2 LVLd ap2 6.8 cm EDV(MOD-sp2) 47.1 ml LVAs ap2 9.7 cm\S\2 LVLs ap2 5.5 cm ESV(MOD-sp2) 15.1 ml EF(MOD-sp2) 67.9 % CO(MOD-sp4) 1.6 l/min CI(MOD-sp4) 0.97 l/min/m\S\2 SV(MOD-sp4) 28.3 ml SI(MOD-sp4) 17.3 ml/m\S\2 CO(MOD-sp2) 1.8 l/min CI(MOD-sp2) 1.1 l/min/m\S\2 SV(MOD-sp2) 32.0 ml SI(MOD-sp2) 19.6 ml/m\S\2 Doppler Measurements and Calculations MV E max maddie 72.8 cm/sec MV A max maddie 129.5 cm/sec MV E/A 0.56 MV dec time 0.28 sec Ao V2 max 131.9 cm/sec Ao max PG 7.0 mmHg Ao max PG (full) 2.5 mmHg MARICEL(V,A) 2.4 cm\S\2 MARICEL(V,D) 2.4 cm\S\2 LV V1 max PG 4.4 mmHg LV V1 max 105.3 cm/sec PA V2 max 88.2 cm/sec PA max PG 3.1 mmHg PA acc slope 568.2 cm/sec\S\2 PA acc time 0.11 sec PA pr(Accel) 28.3 mmHg
[2016-12-08] MEDS: FLUTICASONE PROPIONATE NA SPR 16 GM BTL NAE SCH (20:32)
[2016-12-08] MEDS: TEMAZEPAM 15 MG CAP PO SCH (20:33)
[2016-12-09] VITALS (8 sets, daily range): BP systolic 125–165; BP diastolic 54–93; PULSE 62–76; TEMP 36.2–36.8; O2SAT 95–98
[2016-12-09] MEDS: ACETAMINOPHEN 325 MG TAB PO PRN ×2 (04:34→17:09)
[2016-12-09 06:21] LABS: BASO % 0.6 %; BASO ABS # 0.03 K/uL (0-0.2); COMPLETE YES; EOS % 3.6 %; HEMATOCRIT 37.9 % (37-47); IG% 0.2 %; LYMPH ABS # 1.78 K/uL (1.2-3.4); MEAN CORPUSCULAR HEMOGLOBIN 28.4 pg (25-34); MEAN CORPUSCULAR HGB CONC 30.9 g/dl (32-36); MEAN PLATELET VOLUME 10.4 fL (7.4-10.4); MONO % 12.2 %; NEUT % 49.4 %; PLATELET COUNT 180 K/uL (130-400); RED BLOOD COUNT 4.12 M/uL (4.2-5.4); WHITE BLOOD COUNT 5.23 K/uL (4.8-10.8)
[2016-12-09 06:53] LABS: BUN/CREATININE RATIO 37.3 (10-20); CALCIUM 8.8 mg/dl (8.5-10.1); CREATININE 0.44 mg/dl (0.60-1.20); POTASSIUM 3.9 mmol/L (3.5-5.1)
--- NOTE | 2016-12-09 08:00 | Progress Note ---
Internal Med Progress Note Date of Service: Dec 09, 2016. Provider Documentation: SUBJECTIVE: Patient is seen and examined at bedside. States has improved RUE weakness. Reports speech is at baseline now per patient. Denies chest pain, SOB, dizziness. Offers no other complaints. Eager to get discharged. OBJECTIVE: Vital Signs-as noted below General Appearance:Moderately built and nourished, no apparent distress Head: normocephalic, Atraumatic Eyes: normal inspection, EOMI, PERRL Neck: supple, Trachea midline Respiratory/Chest: Normal breath sounds, CTA Cardiovascular: S1, S2, NSR, No murmur Abdomen/GI:Soft, Non tender, Bowel sounds present Extremities/Musculoskelatal:normal inspection, no edema Neurologic/Psych:AAOX3, grossly no focal deficits Skin:normal color,warm Lab data as noted below. ASSESSMENT & PLAN: Acute CVA: Not a candidate for TPA MRI Brain: findings suggestive of small acute/subacute infarction of left external capsule; Old right thalamic lacunar infarct MRA Head/Neck, Carotid Doppler: reviewed. Results as below Continue ASA, Plavix, Lipitor Neuro checks Appreciate Neurology input PT/OT Continue amlodipine, atenolol, lisinopril for BP control ECHO: Preserved EF, Grade I diastolic dysfunction Needs NSF/Rehab placement parks and recreation worker consulted AMBULATORY DYSFUNCTION Secondary to CVA Fall precautions PT/OT SEVERE COPD ON CHRONIC O2 No evidence of acute exacerbation continue home inhalers supplemental O2 CROHN'S DISEASE stable, In remission continue Imodium PRN DEPRESSION/ANXIETY stable continue Zoloft and Ativan PRN HTN Labile in setting of acute CVA Continue lisinopril, atenolol, amlodipine Patient not taking Norvasc 10mg since 6 months Monitor DYSLIPIDEMIA continue statin DVT PX Lovenox SQ CODE STATUS DNR DISPOSITION: Continue monitoring in Tele surgical services tech consulted Plan to discharge to Rehab facility once Insurance auth approved. PROCEDURES: Neck MRA: 1. Technically limited study secondary to motion artifact. 2. Atheromatous changes at the level of the carotid bulbs, but no evidence of hemodynamically significant carotid stenosis given the limitations of the examination 3. No evidence of vertebral or basilar artery stenosis Head MRA: No evidence of aneurysm. No evidence of intracranial stenosis Brain MRI: 1. 6 mm focus of restricted water diffusion in the region of the posterior aspect of the left external capsule. This is consistent with a small acute/subacute infarction 2. No evidence of intracranial mass 3. No evidence of hydrocephalus 4. Extensive foci of increased T2 signal within the white matter, likely on a small vessel basis 5. 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 Moderate bilateral atheromatous changes. 2. 50-69% stenosis left internal carotid artery by velocity criteria. 3. Systemic systolic hypertension ECHO: * Left ventricular systolic function is normal. * Ejection Fraction = 65-70%. * Grade I diastolic dysfunction, (abnormal relaxation pattern). * Aortic valve sclerosis mild, without significant aortic valvular stenosis. Vital Signs: Date Time Temp Pulse Resp B/P Pulse Ox O2 Delivery O2 Flow Rate FiO2 12/09/16 04:00 36.7 62 18 160/70 98 Nasal Cannula 2.0 12/09/16 04:00 98 Nasal Cannula 2.0 12/09/16 00:00 62 125/54 12/09/16 00:00 98 Nasal Cannula 2.0 12/08/16 23:00 36.4 65 20 188/75 98 Nasal Cannula 2.0 12/08/16 20:00 97 Nasal Cannula 2.0 12/08/16 19:37 36.6 66 16 148/73 97 Nasal Cannula 2.0 12/08/16 16:00 95 Nasal Cannula 2.5 12/08/16 15:42 36.6 67 16 153/74 95 2.0 12/08/16 14:06 96 12/08/16 12:00 96 Nasal Cannula 2.5 12/08/16 09:36 175/96 Lab Results: Results Past 24 Hours Test 12/09/16 05:25 Range/Units White Blood Count 5.23 4.8-10.8 K/uL Red Blood Count 4.12 4.2-5.4 M/uL Hemoglobin 11.7 12.0-16.0 g/dL Hematocrit 37.9 37-47 % Mean Corpuscular Volume 92.0 80-100 fL Mean Corpuscular Hemoglobin 28.4 25-34 pg Mean Corpuscular Hemoglobin Concent 30.9 32-36 g/dl Platelet Count 180 130-400 K/uL Mean Platelet Volume 10.4 7.4-10.4 fL Neutrophils (%) (Auto) 49.4 % Lymphocytes (%) (Auto) 34.0 % Monocytes (%) (Auto) 12.2 % Eosinophils (%) (Auto) 3.6 % Basophils (%) (Auto) 0.6 % Neutrophils # (Auto) 2.58 1.4-6.5 K/uL Lymphocytes # (Auto) 1.78 1.2-3.4 K/uL Monocytes # (Auto) 0.64 0.11-0.59 K/uL Eosinophils # (Auto) 0.19 0-0.5 K/uL Basophils # (Auto) 0.03 0-0.2 K/uL RDW Standard Deviation 43.2 36.4-46.3 fL RDW Coefficient of Variation 12.8 11.5-14.5 % Immature Granulocyte % (Auto) 0.2 % Immature Granulocyte # (Auto) 0.01 0.00-0.02 K/uL Sodium Level 143 136-145 mmol/L Potassium Level 3.9 3.5-5.1 mmol/L Chloride Level 105 98-107 mmol/L Carbon Dioxide Level 35 21-32 mmol/L Anion Gap 3.0 3-11 mmol/L Blood Urea Nitrogen 16 7-18 mg/dl Creatinine 0.44 0.60-1.20 mg/dl Est Creatinine Clear Calc Drug Dose 91.1 ml/min Estimated GFR () 112.1 Estimated GFR (Non- 96.7 BUN/Creatinine Ratio 37.3 10-20 Random Glucose 105 70-99 mg/dl Calcium Level 8.8 8.5-10.1 mg/dl
[2016-12-09] MEDS: IBUPROFEN 200 MG TAB PO PRN (08:47)
[2016-12-09] MEDS: ASPIRIN 81 MG ECTAB PO SCH (08:47)
[2016-12-09] MEDS: ATORVASTATIN 40 MG TAB PO SCH (08:48)
[2016-12-09] MEDS: MULTIVITAMIN TAB PO SCH (08:48)
[2016-12-09] MEDS: OMEGA-3 (PURIFIED FISH OIL) 1 GM CAP PO SCH (08:48)
[2016-12-09] MEDS: CLOPIDOGREL BISULFATE 75 MG TAB PO SCH (08:48)
[2016-12-09] MEDS: GABAPENTIN 300 MG CAP PO SCH ×3 (08:49→20:32)
[2016-12-09] MEDS: LISINOPRIL 40 MG TAB PO SCH (08:50)
[2016-12-09] MEDS: SERTRALINE HCL 100 MG TAB PO SCH (08:50)
[2016-12-09] MEDS: AMLODIPINE BESYLATE 5 MG TAB PO SCH (08:55)
[2016-12-09] MEDS ORDERED: AMLODIPINE BESYLATE 5 MG TAB PO SCH (09:00)
--- NOTE | 2016-12-09 14:18 | PROGRESS NOTE ---
DATE: 12/09/2016 Kyara has been moved to room 460. She is sitting up eating lunch, has no real drift or pronation sign on the right arm, and right leg facility seems to be good. She claims to be able to walk, although I cannot see that physical therapy is actually assessed her yet. I do not see any facial weakness, her speech is clear and there is normal visual gillette and a small infarct in the left hemisphere is really not doing that much clinically. At this point, she could probably be sent back to [facility], perhaps in a rehabilitation environment for a day or two and see how she does and then hopefully can get back to her own independent living arrangement. I would have her on aspirin, Plavix and neurology could take a look at her in about 4-5 weeks post-discharge just to see how she is coming along. Again, because of her moderate stenosis of the left internal carotid artery which is ipsilateral to the stroke she is going to need to have ultrasonic studies done every 6 months or so. Right now, I really cannot justify surgical approach to this lesion which is at best minimal and I am not sure is totally symptomatic as frankly her event sounds more like a primary small vessel event than an arter to artery embolic one. We will continue to see her on a daily basis, but I suspect early this week or perhaps even tomorrow she could be ready for discharge. VERONICA
[2016-12-09] MEDS: ENOXAPARIN 40 MG/0.4 ML SYR SC SCH (16:04)
[2016-12-09] MEDS: LORAZEPAM 0.5 MG TAB PO PRN (17:09)
[2016-12-09] MEDS: FLUTICASONE PROPIONATE NA SPR 16 GM BTL NAE SCH (20:34)
[2016-12-09] MEDS: TEMAZEPAM 15 MG CAP PO SCH (21:53)
[2016-12-10] MEDS: ACETAMINOPHEN 325 MG TAB PO PRN (04:40)
[2016-12-10] MEDS: LORAZEPAM 0.5 MG TAB PO PRN ×2 (06:48→21:42)
[2016-12-10] MEDS: IBUPROFEN 200 MG TAB PO PRN ×2 (06:49→20:02)
[2016-12-10 07:48] VITALS: BP 163/66; PULSE 59; TEMP 36.5; O2SAT 97
[2016-12-10 07:56] LABS: BUN/CREATININE RATIO 41.5 (10-20); CALCIUM 8.6 mg/dl (8.5-10.1); CREATININE 0.48 mg/dl (0.60-1.20)
[2016-12-10 08:00] VITALS: O2SAT 97
[2016-12-10] MEDS: OMEGA-3 (PURIFIED FISH OIL) 1 GM CAP PO SCH (08:12)
[2016-12-10] MEDS: ATORVASTATIN 40 MG TAB PO SCH (08:13)
[2016-12-10] MEDS: ASPIRIN 81 MG ECTAB PO SCH (08:13)
[2016-12-10] MEDS: CLOPIDOGREL BISULFATE 75 MG TAB PO SCH (08:13)
[2016-12-10] MEDS: SERTRALINE HCL 100 MG TAB PO SCH (08:14)
[2016-12-10] MEDS: LISINOPRIL 40 MG TAB PO SCH (08:14)
[2016-12-10] MEDS: MULTIVITAMIN TAB PO SCH (08:16)
[2016-12-10] MEDS: GABAPENTIN 300 MG CAP PO SCH ×3 (08:16→19:59)
[2016-12-10] MEDS: AMLODIPINE BESYLATE 5 MG TAB PO SCH (08:17)
--- NOTE | 2016-12-10 12:43 | Clinical Documentation Query ---
CLINICAL DOCUMENTATION QUERY Dr. ROBLES, In your clinical opinion is this patient being managed for: ( X ) Chronic respiratory failure ( ) Other explanation of clinical findings (Please Explain) ( ) Unable to determine (Please Define) ( ) Need to Discuss ( ) Not Agree The medical record reflects the following clinical findings, treatment, and risk factors. Clinical Indicators: 76 yo female presenting with a CVA. Noted to have severe COPD requiring continuous home O2 support. Treatment: outpatient management includes home O2 support, proair, arnuity ellipta, anoro ellipta Risk Factors: severe COPD Please clarify and document your clinical opinion in the progress notes and discharge summary. Terms such as "probable", "suspected", "likely", "questionable", "possible", or "still to be ruled out" are acceptable. IF IN AGREEMENT, YOU MUST DOCUMENT ABOVE DIAGNOSTIC STATEMENT IN DAILY PROGRESS NOTES AND DISCHARGE SUMMARY. This document is not part of the patient's record. Thank You, Lily Martinez, RN [phone]
--- NOTE | 2016-12-10 15:34 | Progress Note ---
Internal Med Progress Note Date of Service: Dec 10, 2016. Provider Documentation: SUBJECTIVE: Patient is seen and examined at bedside. States weakness resolved. Has balance issues. Offers no complaints. Denies chest pain, SOB, dizziness. OBJECTIVE: Vital Signs-as noted below General Appearance:Moderately built and nourished, no apparent distress Head: normocephalic, Atraumatic Eyes: normal inspection, EOMI, PERRL Neck: supple, Trachea midline Respiratory/Chest: Normal breath sounds, CTA Cardiovascular: S1, S2, NSR, No murmur Abdomen/GI:Soft, Non tender, Bowel sounds present Extremities/Musculoskelatal:normal inspection, no edema Neurologic/Psych:AAOX3, grossly no focal deficits Skin:normal color,warm Lab data as noted below. ASSESSMENT & PLAN: Acute CVA: Not a candidate for TPA MRI Brain: findings suggestive of small acute/subacute infarction of left external capsule; Old right thalamic lacunar infarct MRA Head/Neck, Carotid Doppler: reviewed. Results as below Continue ASA, Plavix, Lipitor Neuro checks Appreciate Neurology input PT/OT Continue amlodipine, atenolol, lisinopril for BP control ECHO: Preserved EF, Grade I diastolic dysfunction Needs NSF/Rehab placement: awaiting for Insurance Auth. medical case worker consulted AMBULATORY DYSFUNCTION Secondary to CVA Fall precautions PT/OT SEVERE COPD ON CHRONIC O2 No evidence of acute exacerbation continue home inhalers supplemental O2 CROHN'S DISEASE stable, In remission continue Imodium PRN DEPRESSION/ANXIETY stable continue Zoloft and Ativan PRN HTN Labile in setting of acute CVA Continue lisinopril, atenolol, amlodipine Patient not taking Norvasc 10mg since 6 months Monitor DYSLIPIDEMIA continue statin DVT PX Lovenox SQ CODE STATUS DNR DISPOSITION: academic services professional consulted Awaiting for Insurance Auth. PROCEDURES: Neck MRA: 1. Technically limited study secondary to motion artifact. 2. Atheromatous changes at the level of the carotid bulbs, but no evidence of hemodynamically significant carotid stenosis given the limitations of the examination 3. No evidence of vertebral or basilar artery stenosis Head MRA: No evidence of aneurysm. No evidence of intracranial stenosis Brain MRI: 1. 6 mm focus of restricted water diffusion in the region of the posterior aspect of the left external capsule. This is consistent with a small acute/subacute infarction 2. No evidence of intracranial mass 3. No evidence of hydrocephalus 4. Extensive foci of increased T2 signal within the white matter, likely on a small vessel basis 5. 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 Moderate bilateral atheromatous changes. 2. 50-69% stenosis left internal carotid artery by velocity criteria. 3. Systemic systolic hypertension ECHO: * Left ventricular systolic function is normal. * Ejection Fraction = 65-70%. * Grade I diastolic dysfunction, (abnormal relaxation pattern). * Aortic valve sclerosis mild, without significant aortic valvular stenosis. Vital Signs: Date Time Temp Pulse Resp B/P Pulse Ox O2 Delivery O2 Flow Rate FiO2 12/10/16 16:34 36.4 64 18 146/82 96 2.0 12/10/16 16:00 96 Nasal Cannula 12/10/16 08:00 97 Nasal Cannula 12/10/16 07:48 36.5 59 18 163/66 97 2.0 12/10/16 00:00 Nasal Cannula 2.5 12/09/16 23:53 36.5 62 18 153/87 98 2.0 12/09/16 20:00 Nasal Cannula 2.5 Lab Results: Results Past 24 Hours Test 12/10/16 06:55 Range/Units Sodium Level 142 136-145 mmol/L Potassium Level 4.0 3.5-5.1 mmol/L Chloride Level 101 98-107 mmol/L Carbon Dioxide Level 36 21-32 mmol/L Anion Gap 5.0 3-11 mmol/L Blood Urea Nitrogen 20 7-18 mg/dl Creatinine 0.48 0.60-1.20 mg/dl Est Creatinine Clear Calc Drug Dose 83.5 ml/min Estimated GFR () 108.9 Estimated GFR (Non- 94.0 BUN/Creatinine Ratio 41.5 10-20 Random Glucose 113 70-99 mg/dl Calcium Level 8.6 8.5-10.1 mg/dl
[2016-12-10 16:00] VITALS: O2SAT 96
[2016-12-10 16:34] VITALS: BP 146/82; PULSE 64; TEMP 36.4; O2SAT 96
--- NOTE | 2016-12-10 16:34 | Neurology Progress Notes ---
Neurology Progress Note Date of Service Dec 10, 2016. Olegario Sparrow is a 76 y/o female with PMH of COPD on 2.5L O2, Crohns Dz, HTN, Dyslipidemia. She lives at [facility] c/o R sided weakness. she states is started with "leaning to the right side" with ambulation. She state she does not have any further weakness but is still having balance issues. Denies visual changes, slurred speech, facial droop or difficulty swallowing. She uses a walker to assist with ambulation at baseline. She was not on aspirin prior to the event. denies CP, SOB, abdominal pain, weakness, numbness tingling, N, V. she really wants to go home. Objective Date Time Temp Pulse Resp B/P Pulse Ox O2 Delivery O2 Flow Rate FiO2 12/10/16 08:00 97 Nasal Cannula 12/10/16 07:48 36.5 59 18 163/66 97 2.0 12/10/16 00:00 Nasal Cannula 2.5 12/09/16 23:53 36.5 62 18 153/87 98 2.0 12/09/16 20:00 Nasal Cannula 2.5 12/09/16 16:26 36.2 68 16 147/83 96 Last 24 Hours Test 12/10/16 06:55 Sodium Level 142 mmol/L Potassium Level 4.0 mmol/L Chloride Level 101 mmol/L Carbon Dioxide Level 36 mmol/L Anion Gap 5.0 mmol/L Blood Urea Nitrogen 20 mg/dl Creatinine 0.48 mg/dl Est Creatinine Clear Calc Drug Dose 83.5 ml/min Estimated GFR () 108.9 Estimated GFR (Non- 94.0 BUN/Creatinine Ratio 41.5 Random Glucose 113 mg/dl Calcium Level 8.6 mg/dl Imaging: no new imaging Exam: Physical Exam: Constitutional: appearance nourished, healthy and normal Ears, Nose, Mouth and Throat: mucous membranes moist, no injection and skin normal, eyes normal Cardiovascular: normal S-1 and S-2 and regular rate and rhythm Respiratory: clear to auscultation (CTA) and no rales, rhonchi or wheeze Musculoskeletal: no peripheral edema and good distal pulses Skin: no stigmata of neurocutaneous disease noted and normal and intact Eyes: extraocular muscles intact (EOMI) and pupils equal, round and reactive to light (PERRL) NEUROLOGIC EXAMINATION: Mental status: Alert and interactive Oriented to location Oriented to person Speech fluent with no evidence of aphasia Cranial Nerves smile eye brow raise symmetric, tongue midline Coordination: finger to nose without bipass or tremor Gait/Stance: Posture normal Motor: Negative for pronator drift of out stretched arms with eyes closed. Strength: biceps triceps hand town clerk 5/5 bilaterally hip flex right 4+/5, left 5/5, plantar flex ext 5/5 bilaterally Current Inpatient Medications Medications (Trade) Dose Ordered Sig/Ashlee Route Start Time Stop Time Status Last Admin Dose Admin Aspirin (Ecotrin Tab) 81 mg QAM PO 12/08/16 09:00 01/07/17 08:59 12/10/16 08:13 81 MG Miscellaneous Information (Pharmacist Discharge Med Rec Consult) 1 ea UD PRN N/A 12/07/16 10:15 01/06/17 10:14 Enoxaparin Sodium (Lovenox Inj) 40 mg Q24H SC 12/07/16 12:00 01/06/17 11:59 12/09/16 16:04 40 MG Acetaminophen (Tylenol Tab) 650 mg Q4H PRN PO 12/07/16 10:15 01/06/17 10:14 12/10/16 04:40 650 MG Ondansetron HCl (Zofran Inj) 4 mg Q6H PRN IV 12/07/16 10:15 01/06/17 10:14 12/10/16 11:19 4 MG Nitroglycerin (Nitrostat Tab) 0.4 mg UD PRN SL 12/07/16 10:15 01/06/17 10:14 Atenolol (Tenormin Tab) 75 mg BID PO 12/07/16 21:00 01/06/17 20:59 12/10/16 08:11 75 MG Fish Oil ([place]-3 (Purified Fish Oil) Cap) 1 gm DAILY PO 12/08/16 09:00 01/07/17 08:59 12/10/16 08:12 1 GM Fluticasone Propionate (Flonase Nasal [place]) 2 sprays QPM ZBIGNIEW 12/07/16 21:00 01/06/17 20:59 12/09/16 20:34 2 SPRAYS Gabapentin (Neurontin Cap) 300 mg TID PO 12/07/16 14:00 01/06/17 13:59 12/10/16 08:16 300 MG Lisinopril (Zestril Tab) 40 mg DAILY PO 12/08/16 09:00 01/07/17 08:59 12/10/16 08:14 40 MG Loperamide HCl (Imodium Cap) 2 mg DAILY PRN PO 12/07/16 10:30 01/06/17 10:29 Lorazepam (Ativan Tab) 0.5 mg BID PRN PO 12/07/16 10:30 01/06/17 10:29 12/10/16 06:48 0.5 MG Multivitamins (Multivitamin Tab) 1 tab DAILY PO 12/08/16 09:00 01/07/17 08:59 12/10/16 08:16 1 TAB Sertraline HCl (Zoloft Tab) 100 mg DAILY PO 12/08/16 09:00 01/07/17 08:59 12/10/16 08:14 100 MG Temazepam (Restoril Cap) 30 mg HS PO 12/07/16 21:00 01/06/17 20:59 12/09/16 21:53 30 MG Albuterol (Ventolin Hfa Inhaler) 2 puffs Q4H PRN INH 12/07/16 10:45 01/06/17 10:44 Miscellaneous Information (Order Awaiting Action) 1 ea QS N/A 12/07/16 16:00 01/06/17 15:59 Miscellaneous Information (Order Awaiting Action) 1 ea QS N/A 12/07/16 16:00 01/06/17 15:59 Ibuprofen (Advil Tab) 400 mg Q6H PRN PO 12/07/16 12:30 01/06/17 12:29 12/10/16 06:49 400 MG Gadobutrol (Gadavist) 6 mmol UD PRN IV 12/07/16 17:00 12/11/16 16:59 Atorvastatin Calcium (Lipitor Tab) 40 mg QAM PO 12/08/16 09:00 01/07/17 08:59 12/10/16 08:13 40 MG Clopidogrel Bisulfate (plAVix TAB) 75 mg QAM PO 12/08/16 09:00 01/07/17 08:59 12/10/16 08:13 75 MG Amlodipine Besylate (Norvasc Tab) 10 mg DAILY PO 12/09/16 09:00 01/08/17 08:59 12/10/16 08:17 10 MG Impression 76 year old female s/p ischemic event with residual right LE weakness Plan 1. optimize HTN, DL, LDL <70 2. PT/OT speech for discharge needs 3. left carotid artery should be monitored every 6 months with doppler 4. Plavix 75 mg and aspirin 81 mg x 3 months then monotherapy there after for life with aspirin 81 mg daily 5. fall precautions 6. will see her in our office 5-6 weeks after discharge from rehab, Henrietta Vieyra PAC schedule I have seen and discussed above patient with Dr Jose Juan Randle, neurology Patient seen and examined adn above discussed she is still a bit unsteady and likely shoud not go back to her independent living situation yet Rehab may be needed and [facility] is felt to be the best choice although one wonders about [facility] for rehap and then a return to her residence there at this time neurology has no more to offer other than dual antiplatelet rx and a retrun visit in four to six weeks we will sign off for now Jose Juan Randle MD
[2016-12-10] MEDS: ENOXAPARIN 40 MG/0.4 ML SYR SC SCH (16:56)
[2016-12-10 19:45] VITALS: O2SAT 96
[2016-12-10] MEDS: TEMAZEPAM 15 MG CAP PO SCH (21:42)
[2016-12-10] MEDS: FLUTICASONE PROPIONATE NA SPR 16 GM BTL NAE SCH (21:43)
[2016-12-11] VITALS: BP 151/76; PULSE 61; TEMP 36.7; O2SAT 95
[2016-12-11 06:24] VITALS: O2SAT 96
[2016-12-11 06:57] VITALS: BP 134/77; PULSE 55; TEMP 36.4; O2SAT 98
[2016-12-11] MEDS: ASPIRIN 81 MG ECTAB PO SCH (07:27)
[2016-12-11] MEDS: ATORVASTATIN 40 MG TAB PO SCH (07:28)
[2016-12-11] MEDS: MULTIVITAMIN TAB PO SCH (07:28)
[2016-12-11] MEDS: GABAPENTIN 300 MG CAP PO SCH (07:28)
[2016-12-11] MEDS: AMLODIPINE BESYLATE 5 MG TAB PO SCH (07:29)
[2016-12-11] MEDS: SERTRALINE HCL 100 MG TAB PO SCH (07:30)
[2016-12-11] MEDS: LISINOPRIL 40 MG TAB PO SCH (07:30)
[2016-12-11] MEDS: OMEGA-3 (PURIFIED FISH OIL) 1 GM CAP PO SCH (07:30)
[2016-12-11] MEDS: CLOPIDOGREL BISULFATE 75 MG TAB PO SCH (07:30)
[2016-12-11 07:37] VITALS: PULSE 62
--- NOTE | 2016-12-11 09:07 | Clinical Documentation Query ---
CLINICAL DOCUMENTATION QUERY Dr. CALLOWAY, In your clinical opinion is this patient being managed for: ( ) Chronic respiratory failure ( ) Other explanation of clinical findings (Please Explain) ( ) Unable to determine (Please Define) ( ) Need to Discuss ( ) Not Agree Not my patient The medical record reflects the following clinical findings, treatment, and risk factors. Clinical Indicators: 76 yo female presenting with a CVA. Noted to have severe COPD requiring continuous home O2 support. Treatment: outpatient management includes home O2 support, proair, arnuity ellipta, anoro ellipta Risk Factors: severe COPD Please clarify and document your clinical opinion in the progress notes and discharge summary. Terms such as "probable", "suspected", "likely", "questionable", "possible", or "still to be ruled out" are acceptable. IF IN AGREEMENT, YOU MUST DOCUMENT ABOVE DIAGNOSTIC STATEMENT IN DAILY PROGRESS NOTES AND DISCHARGE SUMMARY. This document is not part of the patient's record. Thank You, Lily Martinez, RN [phone]
--- NOTE | 2016-12-11 09:39 | Progress Note ---
Internal Med Progress Note Date of Service: Dec 11, 2016. Provider Documentation: SUBJECTIVE: Patient is seen and examined at bedside. Has minimal weakness on RLE. Doing well. Also has mild headache. Offers no other complaints. Denies chest pain, SOB , dizziness. Eager to get discharged. OBJECTIVE: Vital Signs-as noted below General Appearance:Moderately built and nourished, no apparent distress Head: normocephalic, Atraumatic Eyes: normal inspection, EOMI, PERRL Neck: supple, Trachea midline Respiratory/Chest: Normal breath sounds, CTA Cardiovascular: S1, S2, NSR, No murmur Abdomen/GI:Soft, Non tender, Bowel sounds present Extremities/Musculoskelatal:normal inspection, no edema Neurologic/Psych:AAOX3, grossly no focal deficits Skin:normal color,warm Lab data as noted below. ASSESSMENT & PLAN: Acute CVA: Not a candidate for TPA MRI Brain: findings suggestive of small acute/subacute infarction of left external capsule; Old right thalamic lacunar infarct MRA Head/Neck, Carotid Doppler: reviewed. 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 farmworker consulted AMBULATORY DYSFUNCTION Secondary to CVA Fall precautions PT/OT SEVERE COPD ON CHRONIC O2 CHRONIC OXYGEN DEPENDENCY No evidence of acute exacerbation continue home inhalers supplemental O2 CROHN'S DISEASE stable, In remission continue Imodium PRN DEPRESSION/ANXIETY stable continue Zoloft and Ativan PRN HTN Labile in setting of acute CVA Continue lisinopril, atenolol, amlodipine Patient not taking Norvasc 10mg since 6 months BP controlled Monitor DYSLIPIDEMIA continue statin DVT PX Lovenox SQ CODE STATUS DNR DISPOSITION: equipment services associate consulted Plan to discharge to [facility] Follow up with [facility] on 12/17/16 at 11:05 AM Follow up with Neurology on 01/22 at 10:50 AM after discharge from Rehab facility Continue to take ASA and Plavix for 3 months then monotherapy with aspirin 81 mg daily PROCEDURES: Neck MRA: 1. Technically limited study secondary to motion artifact. 2. Atheromatous changes at the level of the carotid bulbs, but no evidence of hemodynamically significant carotid stenosis given the limitations of the examination 3. No evidence of vertebral or basilar artery stenosis Head MRA: No evidence of aneurysm. No evidence of intracranial stenosis Brain MRI: 1. 6 mm focus of restricted water diffusion in the region of the posterior aspect of the left external capsule. This is consistent with a small acute/subacute infarction 2. No evidence of intracranial mass 3. No evidence of hydrocephalus 4. Extensive foci of increased T2 signal within the white matter, likely on a small vessel basis 5. 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 Moderate bilateral atheromatous changes. 2. 50-69% stenosis left internal carotid artery by velocity criteria. 3. Systemic systolic hypertension ECHO: * Left ventricular systolic function is normal. * Ejection Fraction = 65-70%. * Grade I diastolic dysfunction, (abnormal relaxation pattern). * Aortic valve sclerosis mild, without significant aortic valvular stenosis. Vital Signs: Date Time Temp Pulse Resp B/P Pulse Ox O2 Delivery O2 Flow Rate FiO2 12/11/16 08:00 Nasal Cannula 12/11/16 07:37 62 12/11/16 06:57 36.4 55 16 134/77 98 2.0 12/11/16 06:24 96 Nasal Cannula 12/11/16 00:00 36.7 61 16 151/76 95 Nasal Cannula 2.0 12/10/16 19:45 96 Nasal Cannula 12/10/16 16:34 36.4 64 18 146/82 96 2.0 12/10/16 16:00 96 Nasal Cannula
[2016-12-11] MEDS ORDERED: TEMA30CA4 PO (10:07)
[2016-12-11] MEDS ORDERED: ATV5 PO (10:07)
[2016-12-11] MEDS ORDERED: PLV75 PO (10:07)
[2016-12-11] MEDS ORDERED: LPT40 PO (10:07)
[2016-12-11] MEDS ORDERED: ASPEC81 PO (10:07)
--- NOTE | 2016-12-11 10:11 | Discharge Summary ---
Discharge Summary Date of Service Dec 11, 2016. Discharge Summary Admission Date: Dec 07, 2016 at 10:20 Discharge Date: Dec 11, 2016 Discharge Disposition: longterm facility Principal Diagnosis: Acute CVA Procedures: Neck MRA: 1. Technically limited study secondary to motion artifact. 2. Atheromatous changes at the level of the carotid bulbs, but no evidence of hemodynamically significant carotid stenosis given the limitations of the examination 3. No evidence of vertebral or basilar artery stenosis Head MRA: No evidence of aneurysm. No evidence of intracranial stenosis Brain MRI: 1. 6 mm focus of restricted water diffusion in the region of the posterior aspect of the left external capsule. This is consistent with a small acute/subacute infarction 2. No evidence of intracranial mass 3. No evidence of hydrocephalus 4. Extensive foci of increased T2 signal within the white matter, likely on a small vessel basis 5. 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 Moderate bilateral atheromatous changes. 2. 50-69% stenosis left internal carotid artery by velocity criteria. 3. Systemic systolic hypertension ECHO: * Left ventricular systolic function is normal. * Ejection Fraction = 65-70%. * Grade I diastolic dysfunction, (abnormal relaxation pattern). * Aortic valve sclerosis mild, without significant aortic valvular stenosis. Consultations: Neurology Pending Studies/Follow-Up: Follow up with [facility] on 12/17/16 at 11:05 AM Follow up with Neurology on 01/22 at 10:50 AM after discharge from Rehab facility Continue to take ASA and Plavix for 3 months then monotherapy with aspirin 81 mg daily Medication Reconciliation New Medications: Aspirin (Aspirin EC Low Dose) 81 Mg Ectab 81 MG PO QAM for 30 Days, #30 Atorvastatin (Atorvastatin Calcium) 40 Mg Tab 40 MG PO QAM for 30 Days, #30 TAB 2 Refills Clopidogrel Bisulfate (Clopidogrel) 75 Mg Tab 75 MG PO QAM for 30 Days, #30 TAB 2 Refills Lorazepam (Lorazepam) 0.5 Mg Tab 0.5 MG PO BID PRN for Anxiety for 5 Days, #6 TAB Continued Medications: Acetaminophen (Tylenol) 500 Mg Tab 1000 MG PO Q6H PRN for Pain, TAB Albuterol Sulfate (Proair Respiclick) 108 Mcg/Act Aer 2 PUFF INH Q4 PRN for SOB/Wheezing Amlodipine (Norvasc) 10 Mg Tab 10 MG PO DAILY, TAB Atenolol (Tenormin) 50 Mg Tab 75 MG PO BID, 0 Refills Fish Oil ([place]-3) 1 Ea Cap 1 CAP PO DAILY Fluticasone Furoate (Inhalatio (Arnuity Ellipta) 100 Mcg/Act Inh 1 PUFF PO DAILY Fluticasone Propionate (Nasal) (Flonase Allergy Relief) 50 Mcg/Act Spr 2 SPRAYS ZBIGNIEW QPM Gabapentin (Gabapentin) 300 Mg Cap 300 MG PO TID for 30 Days, #90 CAP 5 Refills Lisinopril (Zestril) 40 Mg Tab 40 MG PO DAILY, 0 Refills Loperamide Hcl (Imodium) 2 Mg Cap 2 MG PO DAILY PRN for Diarrhea, CAP Multivitamin (Multivitamin) Tab 1 TAB PO DAILY Oxygen (Oxygen) Gas 2.5 LITERS NA CONTINOUS Sertraline (Zoloft) 100 Mg Tab 100 MG PO DAILY, 0 Refills Temazepam (Restoril) 30 Mg Cap 30 MG PO HS for 30 Days, #5 (This prescription has been renewed) Umeclidinium-Vilanterol (Anoro Ellipta 62.5-25 Mcg/INH) 1 Aer Aer 1 PUFF PO DAILY Discontinued Medications: Lorazepam (Ativan *) 0.5 Mg Tab 0.5 MG PO BID PRN for Anxiety, 0 Refills Admission Information HPI (per Admitting provider): This is a 76 y/o female with PMHx of COPD on 2.5L O2, Crohns Dz, HTN, Dyslipidemia and other problems as outlined below who presents to the ED from [facility] c/o R sided weakness that began yesterday. Pt reports that yesterday she noticed she was "veering to the right side" with ambulation. This morning she got up around 0500 to use the bathroom and fell onto her R side due to the R sided weakness. It took her 30 minutes to get herself up and then she fell a second time. She called for the nurses and they recommended she go to the ED. Pt mentions she fell about a month ago and has not felt "right" since then. She feels like since the fall a month ago her speech has been slower. Currently, patient is complaining of a headache but otherwise feels at her baseline. Pt denies visual changes, slurred speech, facial droop or difficulty swallowing. Pt currently lives alone in independent living at [place]. She typically uses a walker to assist with ambulation. Pt has a history of HTN on Lisinopril, atenolol and Norvasc. Patient stopped taking the Norvasc about 6 months ago on her own accord as she thought her BP was too low. Pt denies fever/chills, visual changes, diaphoresis, chest pain, palpitations, SOB, wheezing, abd pain, N/V, bowel or bladder issues, LE edema, calf pain, lightheadedness/dizziness. In the ED, BP is elevated (185/100) on arrival. Pt is afebrile with no leukocytosis. Trop is negative and EKG is unchanged. CT head is negative for acute process. Pt is stable and will be admitted for further evaluation and treatment. 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 AMBULATORY DYSFUNCTION Secondary to CVA Fall precautions PT/OT SEVERE COPD ON CHRONIC O2 CHRONIC OXYGEN DEPENDENCY No evidence of acute exacerbation continue home inhalers supplemental O2 CROHN'S DISEASE stable, In remission continue Imodium PRN DEPRESSION/ANXIETY stable continue Zoloft and Ativan PRN HTN Labile in setting of acute CVA Continue lisinopril, atenolol, amlodipine Patient not taking Norvasc 10mg since 6 months BP controlled Monitor DYSLIPIDEMIA continue statin DVT PX Lovenox SQ CODE STATUS DNR 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 Technically limited study secondary to motion artifact. 2. Atheromatous changes at the level of the carotid bulbs, but no evidence of hemodynamically significant carotid stenosis given the limitations of the examination 3. No evidence of vertebral or basilar artery stenosis Head MRA: No evidence of aneurysm. No evidence of intracranial stenosis Brain MRI: 1. 6 mm focus of restricted water diffusion in the region of the posterior aspect of the left external capsule. This is consistent with a small acute/subacute infarction 2. No evidence of intracranial mass 3. No evidence of hydrocephalus 4. Extensive foci of increased T2 signal within the white matter, likely on a small vessel basis 5. 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 Moderate bilateral atheromatous changes. 2. 50-69% stenosis left internal carotid artery by velocity criteria. 3. Systemic systolic hypertension ECHO: * Left ventricular systolic function is normal. * Ejection Fraction = 65-70%. * Grade I diastolic dysfunction, (abnormal relaxation pattern). * Aortic valve sclerosis mild, without significant aortic valvular stenosis. Total time spent on discharge = 35 minutes This includes examination of the patient, discharge planning, medication reconciliation, and communication with other providers. Discharge Instructions Discharge Instructions Date of Service Dec 11, 2016. Admission Reason for Admission: Right Sided Weakness Discharge Discharge Diagnosis / Problem: Acute CVA Discharge Goals Goal(s): Decrease discomfort, Improve function Activity Recommendations Activity Limitations: resume your previous activity Exercise/Sports Limitations: as tolerated . Instructions / Follow-Up Instructions / Follow-Up Follow up with Ny on 12/17/16 at 11:05 AM Follow up with Neurology on 01/22 at 10:50 AM after discharge from Rehab facility Continue to take ASA and Plavix for 3 months then monotherapy with aspirin 81 mg daily Risk Factors for Stroke: You can reduce your chances of stroke by working with your medical provider to adopt a healthy lifestyle. Some specific ways to lower your chance of stroke are: * If you are a smoker, now is the time to stop smoking cigarettes * If you are diabetic, improve the control of your blood sugars * Avoid excessive amounts of alcohol * Control high blood pressure * Lose weight if you are overweight * Be sure to lead an active lifestyle * Eat a healthy diet low in salt, cholesterol and fat You should know about other risk factors for stroke that you are unable to control. These include: * Age 55 years or older * Male gender * Certain racial groups: , or / * Family History of Stroke, Mini stroke or Heart Attack * Sickle Cell Disease Follow Up: It is important for you to keep your follow up appointments with your medical provider. Current Hospital Diet Patient's current hospital diet: AHA Diet (Heart Healthy), Low Fiber Diet Discharge Diet Recommended Diet: AHA Diet (Heart Healthy), Low Fiber Diet Pending Studies Studies pending at discharge: no Laboratory Results Hemoglobin A1c Test 12/07/16 07:00 Range/Units Estimated Average Glucose 128 mg/dl Hemoglobin A1c 6.1 H 4.5-5.6 % Lipid Panel Test 12/08/16 05:15 Range/Units Triglycerides Level 199 H 0-150 mg/dl Cholesterol Level 195 0-200 mg/dl HDL Cholesterol 37 mg/dl Cholesterol/HDL Ratio 5.3 LDL Cholesterol, Calculated 118 mg/dl Medical Emergencies . Who to Call and When: Medical Emergencies: Call 911 immediately if you experience any of the following warning signs and symptoms of Stroke: * Sudden numbness or weakness of the face, arm or leg, especially on one side of the body * Sudden confusion, trouble speaking or understanding * Sudden trouble seeing in one or both eyes * Sudden trouble walking, dizziness, loss of balance or coordination * Sudden severe headache with no cause Do not delay calling 911 if you experience any warning signs or symptoms of a stroke. Delay in seeking medical attention may affect what treatments can be given to you. . Non-Emergent Contact Non-Emergency issues call your: Primary Care Provider, Neurologist Call Non-Emergent contact if: you have a fever, your pain is not controlled, your pain is worsening, your pain is unusual for you, you have any medication questions Your weakness is worsening . . "Provider Documentation" section prepared by Maik Luis. Stroke Core Measures Reason no t-PA for Stroke: Treatment not indicated Reason no antithrom by day 2: Treatment provided - N/A Reason no antithrom at D/C: Treatment provided - N/A Reason no statin at D/C: Treatment provided - N/A Reason no anticoag w/a fib: Treatment not indicated VTE Core Measure Inpt VTE Proph given/why not?: Enoxaparin (Lovenox)SQ
[2016-12-11] MEDS: IBUPROFEN 200 MG TAB PO PRN (10:26)
[2016-12-11] MEDS: ENOXAPARIN 40 MG/0.4 ML SYR SC SCH (10:27)
[2016-12-11] MEDS: LORAZEPAM 0.5 MG TAB PO PRN (10:28)
[2016-12-11 10:47] VITALS: BP 134/77; PULSE 62; TEMP 36.4; O2SAT 98
[2017-05-08] MEDS ORDERED: METR-163 PO (12:51)
[2017-05-08] MEDS ORDERED: CEFD300C2 PO ×2 (12:51→12:52)
[2017-05-08] MEDS ORDERED: LCTX PO (12:52)
== END 2016-12-11 13:52 | DRG 65 ==
LOC: ENRESERVTM → ENRESERVDT → EDBD 06:40 → C.EDA 06:47 → C.EDINP 10:20 → C.2E 13:00 → C.MS4W 12-09 09:56
PROVIDERS: ADMIT Internal Medicine; ATTEND Internal Medicine
DX: I63.8 Other cerebral infarction (principal); K50.90 Crohn's disease, unspecified, without complications; G81.91 Hemiplegia, unspecified affecting right dominant side; R26.2 Difficulty in walking, not elsewhere classified; J44.9 Chronic obstructive pulmonary disease, unspecified; I10 Essential (primary) hypertension; E78.5 Hyperlipidemia, unspecified; F32.9 Major depressive disorder, single episode, unspecified; F41.9 Anxiety disorder, unspecified; Z66 Do not resuscitate; Z99.81 Dependence on supplemental oxygen; Z87.891 Personal history of nicotine dependence; Z79.51 Long term (current) use of inhaled steroids; Z79.899 Other long term (current) drug therapy

== ENCOUNTER 2017-03-29 16:09 | Observation (INO) | payer OTHER ==
[~2017-03-29] VITALS: Ht 162.6 cm; Wt 62.3 kg
[~2017-03-29 16:09] MED LIST changes: +ALBU18002 INH; -ALBU1AER9 INH; +ASPEC81 PO; -FLUT0.0529 NAE; +FLUT0.15 NAE; -FURO-85 PO; +LPT40 PO; +PLV75 PO; -TEMA15CA4 PO; +TEMA30CA4 PO
--- NOTE | 2017-03-29 16:49 | EMERGENCY ROOM VISIT NOTE ---
History Report prepared by Shae: Angela Conrad Under the Supervision of: Dr. Kelly Abdalla D.O. First contact with patient: 16:27 Chief Complaint: CONFUSION Stated Complaint: LETHARGIC, ALTERED MENTAL STATUS Nursing Triage Summary: Patient arrived by ambulance ALS from the [facility] apt. after being found on the couch and was not arousable to voice or tactile stimuli. Per medic patient was awake but disoriented on arrival and there was vomit all over the apartment and also furniture knocked over. Patient states she may have fallen today. Patient is alert and oriented on arrival to ED. Son is concerned that the patient is over using her anxiety medications. History of Present Illness The patient is a 76 year old female who presents to the Emergency Room via ALS from [facility] with complaints of altered mental status. The patient was found to be unarousable on her couch by maintenance staff. Per medic staff, the patient was awake but disoriented upon their arrival to the scene. They note that there was vomit in the apartment and her furniture was knocked over. The patient states that she was feeling lethargic and nauseous today. She states that she remembers taking a nap then waking up here. The patient's son expresses concern for the patient over medicating herself. He mentions that the patient would not allow him to count her remaining Ativan pills last night. He also notes the patient's memory worsening recently. Patient is alert and oriented at this time. She has a history of a "minor" stroke last month. 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 A total of 10 systems reviewed and were otherwise negative. Past Medical & Surgical Medical Problems: (1) COPD (chronic obstructive pulmonary disease) (2) COPD (chronic obstructive pulmonary disease) (3) Crohn's disease (4) Depression (5) Ectopic (6) HLD (hyperlipidemia) (7) HTN (hypertension) (8) Osteoporosis (9) Right sided weakness Surgical Problems: (1) H/O colonoscopy (2) History of cataract surgery (3) History of esophagogastroduodenoscopy (EGD) (4) S/P laser trabeculoplasty of eye Family History FH: cancer FH: gallbladder disease FH: lung disease Kidney stones Social History Smoking Status: Former Smoker Drug Use: none Marital Status: Housing Status: assisted living Occupation Status: retired Current/Historical Medications Scheduled Amlodipine (Norvasc), 10 MG PO DAILY Aspirin (Aspirin EC Low Dose), 81 MG PO QAM Atenolol (Tenormin), 75 MG PO BID Atorvastatin (Atorvastatin Calcium), 40 MG PO QAM Clopidogrel Bisulfate (Clopidogrel), 75 MG PO QAM Fish Oil ([place]-3), 1 CAP PO DAILY Fluticasone Furoate (Inhalatio (Arnuity Ellipta), 1 PUFF PO DAILY Gabapentin (Gabapentin), 300 MG PO TID Home O2 Therapy (Oxygen), 2.5 LITERS NA CONTINOUS Lisinopril (Zestril), 40 MG PO DAILY Multivitamin (Multivitamin), 1 TAB PO DAILY Sertraline (Zoloft), 100 MG PO DAILY Umeclidinium-Vilanterol (Anoro Ellipta 62.5-25 Mcg/INH), 1 PUFF PO DAILY Scheduled PRN Albuterol Sulfate (Proair Respiclick), 2 PUFF INH Q4 PRN for SOB/Wheezing Ibuprofen (Advil), 200 MG PO Q6 PRN for Pain Levalbuterol (Levalbuterol HCl), 1.25 MG NEB Q8 PRN for Wheezing Loperamide Hcl (Imodium), 2 MG PO DAILY PRN for Diarrhea Lorazepam (Ativan), 0.5 MG PO TID PRN for Anxiety Allergies Coded Allergies: No Known Allergies (Unverified , 03/29/17) Physical Exam Vital Signs Date Time Temp Pulse Resp B/P (MAP) Pulse Ox O2 Delivery O2 Flow Rate FiO2 03/29/17 20:39 77 18 135/51 100 03/29/17 20:35 75 03/29/17 18:08 66 15 145/77 97 Room Air 03/29/17 17:23 66 16 152/92 94 Nasal Cannula 2.0 03/29/17 16:36 94 Room Air 03/29/17 16:24 36.6 80 24 152/79 94 Room Air 03/29/17 16:22 79 Physical Exam GENERAL: alert, well appearing, well nourished, no distress, non-toxic EYE EXAM: normal conjunctiva, PERRL and EOM's grossly intact OROPHARYNX: no exudate, no erythema, lips, buccal mucosa, and tongue normal and mucous membranes are moist NECK: supple, no nuchal rigidity, no adenopathy, non-tender LUNGS: Decreased breath sounds. Clear to auscultation. Normal chest wall mechanics HEART: no murmurs, S1 normal and S2 normal ABDOMEN: abdomen soft, non-tender, normo-active bowel sounds, no masses, no rebound or guarding. BACK: Back is symmetrical on inspection and there is no deformity, no midline tenderness, no CVA tenderness. SKIN: no rashes and no bruising UPPER EXTREMITIES: upper extremities are grossly normal. LOWER EXTREMITIES: No pitting edema. NEURO EXAM: Normal sensorium, cranial nerves II-XII [grossly] intact, normal speech, no [gross] weakness of arms, no [gross] weakness of legs. [No drift. Finger to nose intact. Gross sensation intact.] Medical Decision & Procedures ER Provider Diagnostic Interpretation: Radiology results have been interpreted by the radiologist and reviewed by me. CT OF THE HEAD WITHOUT CONTRAST CLINICAL HISTORY: Confusion, unresponsive episode COMPARISON STUDY: Head CT December 07, 2016. CT DOSE: 638.56 mGycm TECHNIQUE: Helical axial images of the head were obtained without IV contrast. Automated exposure control was utilized for the study. A dose lowering technique was utilized adhering to the principles of ALARA. FINDINGS: No acute intracranial hemorrhage, midline shift or mass effect is present. Ventricular system is stable. Basilar cisterns are patent. There are no extra-axial collections. Extensive white matter hypodensities are unchanged. An old lacunar infarct within the right thalamus is noted. There are no findings to suggest acute dural sinus thrombosis or acute territorial infarct. There are no significant calvarial abnormalities. Visualized portions of the sinuses and mastoid air cells are clear. IMPRESSION: No acute intracranial findings. Electronically signed by: Jairo Wynn M.D. 03/29/2017 6:05 PM Dictated Date/Time: 03/29/2017 6:02 PM CHEST ONE VIEW PORTABLE CLINICAL HISTORY: unresponsive episode COMPARISON STUDY: 12/07/2016 FINDINGS: The cardiac and mediastinal contours remain stable. There is underlying emphysema. Metallic markers are visualized in the right midlung zone laterally. There is right-sided colonic interposition. There is no failure. There is no acute parenchymal consolidation. There are no pleural effusions.[ IMPRESSION: No active disease in the chest. Electronically signed by: Travis Garnica M.D. 03/29/2017 5:12 PM Dictated Date/Time: 03/29/2017 5:10 PM Laboratory Results 03/29/17 16:25 Test 03/29/17 16:25 03/29/17 17:41 03/29/17 19:20 03/29/17 20:11 Prothrombin Time 10.5 SECONDS (9.0-12.0) Prothromb Time International Ratio 1.0 (0.9-1.1) Anion Gap 3.0 mmol/L (3-11) Est Creatinine Clear Calc Drug Dose 49.7 ml/min Estimated GFR () 77.2 Estimated GFR (Non- 66.6 BUN/Creatinine Ratio 20.7 (10-20) Calcium Level 8.6 mg/dl (8.5-10.1) Magnesium Level 2.1 mg/dl (1.8-2.4) Total Bilirubin 0.2 mg/dl (0.2-1) Aspartate Amino Transf (AST/SGOT) 20 U/L (15-37) Alanine Aminotransferase (ALT/SGPT) 25 U/L (12-78) Alkaline Phosphatase 98 U/L (45-117) Troponin I < 0.015 ng/ml (0-0.045) Pro-B-Type Natriuretic Peptide 293 pg/ml (0-1800) Total Protein 7.1 gm/dl (6.4-8.2) Albumin 3.7 gm/dl (3.4-5.0) Globulin 3.4 gm/dl (2.5-4.0) Albumin/Globulin Ratio 1.1 (0.9-2) Lipase 172 U/L (73-393) Thyroid Stimulating Hormone (TSH) 0.930 uIu/ml (0.300-4.500) Lactic Acid Level 1.4 mmol/L (0.4-2.0) Ethyl Alcohol mg/dL < 3.0 mg/dl (0-3) Urine Color YELLOW Urine Appearance CLEAR (CLEAR) Urine pH 6.0 (4.5-7.5) Urine Specific Moodus 1.021 (1.000-1.030) Urine Protein TRACE (NEG) Urine Glucose (UA) NEG (NEG) Urine Ketones NEG (NEG) Urine Occult Blood NEG (NEG) Urine Nitrite NEG (NEG) Urine Bilirubin NEG (NEG) Urine Urobilinogen NEG (NEG) Urine Leukocyte Esterase NEG (NEG) Urine WBC (Auto) 1-5 /hpf (0-5) Urine RBC (Auto) 0-4 /hpf (0-4) Urine Hyaline Casts (Auto) 10-30 /lpf (0-5) Urine Epithelial Cells (Auto) >30 /lpf (0-5) Urine Bacteria (Auto) NEG (NEG) Urine Renal Epithelial Cells 0-5 /lpf (0-5) Urine Pathogenic Casts 1-5 WBC CASTS /lpf (0) Urine Opiates Screen NEG (NEG) Urine Methadone, Qualitative NEG (NEG) Urine Barbiturates NEG (NEG) Urine Phencyclidine (PCP) Level NEG (NEG) Ur Amphetamine/Methamphetamine NEG (NEG) MDMA (Ecstasy) Screen NEG (NEG) Urine Benzodiazepines Screen POS (NEG) Urine Cocaine Metabolite NEG (NEG) Urine Marijuana (THC) NEG (NEG) Laboratory results per my review. Medications Administered Medications (Trade) Dose Ordered Sig/Ashlee Route Start Time Stop Time Status Last Admin Dose Admin Sodium Chloride 1,000 ml @ 250 mls/hr Q4H STAT IV 03/29/17 18:18 03/29/17 22:17 DC 03/29/17 19:10 250 MLS/HR Aspirin/Aluminum/ Magnesium/Ca Carb (Ascriptin Tab) 325 mg NOW STAT PO 03/29/17 20:38 03/29/17 20:39 DC 03/29/17 21:47 325 MG ECG Indication: altered mental status Rate (beats per minute): 73 Rhythm: sinus rhythm Findings: no acute ischemic change, other (Normal axis, normal intervals, baseline artifact noted. ) ED Course 1637: The patient was evaluated in room B4. A complete history and physical exam was performed. 1848: We are awaiting the patient's urinalysis results. Upon reevaluation of the patient, she is sleeping but easily aroused. I updated the patient's son with of the results and treatment plan thus far. 1817: Ordered Sodium Chloride 1,000 ml @ 250 mls/hr IV. 2046: I reviewed the patient's case with Dr. Espinal ([facility]). He will evaluate the patient for further management. Medical Decision Differential diagnosis: Etiologies such as metabolic, infection, hypoglycemia, electrolyte abnormalities , cardiac sources, intracerebral event, toxicologic, neurologic, as well as others were entertained. Concern for pt's ability to care for herself and appropriately take medications , especially in light of daily use of lorazepam. Son concerned about recent change in dosing of BZD. States mother hiding bottles and won't let him count them to make sure she is taking them correctly. He is concerned she may be abusing them. States she has been on BZD for many years, used to abuse alcohol also. Given age and risks and unresponsive episode, may need additional stroke evaluation also. No evidence of bacteremia/sepsis, doubt primary cardiac event. Non focal neuro exam at bedside. Doubt cardiac etiology. Doubt occult traumatic injury given appearance of patient's living quarters. Possible need for additional evaluation for neurologic etiology. Consults Time Called: 2014 Consulting Physician: Dr. Espinal (Andrea) Returned Call: [phone] I reviewed the patient's case with Dr. Espinal (Andrea). He will evaluate the patient for further management. Impression Primary Impression: Unresponsive episode Additional Impression: Poor memory Scribe Attestation The scribe's documentation has been prepared under my direction and personally reviewed by me in its entirety. I confirm that the note above accurately reflects all work, treatment, procedures, and medical decision making performed by me. Departure Information Dispostion Being Evaluated By Hospitalist Referrals Jose Juan Alejandra III, M.D. (PCP) Patient Instructions My [facility] Problem Qualifiers
[2017-03-29 17:06] LABS: BASO % 0.3 %; BASO ABS # 0.02 K/uL (0-0.2); COMPLETE YES; EOS % 0.9 %; HEMATOCRIT 38.8 % (37-47); IG% 0.2 %; LYMPH % 14.7 %; LYMPH ABS # 0.85 K/uL (1.2-3.4); MEAN CELL VOLUME 92.6 fL (80-100); MEAN CORPUSCULAR HEMOGLOBIN 28.2 pg (25-34); MEAN CORPUSCULAR HGB CONC 30.4 g/dl (32-36); MEAN PLATELET VOLUME 10.7 fL (7.4-10.4); MONO % 10.7 %; NEUT % 73.2 %; PLATELET COUNT 209 K/uL (130-400); RED BLOOD COUNT 4.19 M/uL (4.2-5.4); WHITE BLOOD COUNT 5.78 K/uL (4.8-10.8)
[2017-03-29 17:07] LABS: PROTHROMBIN TIME (PATIENT) 10.5 SECONDS (9.0-12.0)
--- NOTE | 2017-03-29 17:13 | DIAGNOSTIC IMAGING REPORT ---
CHEST ONE VIEW PORTABLE CLINICAL HISTORY: unresponsive episode COMPARISON STUDY: 12/07/2016 FINDINGS: The cardiac and mediastinal contours remain stable. There is underlying emphysema. Metallic markers are visualized in the right midlung zone laterally. There is right-sided colonic interposition. There is no failure. There is no acute parenchymal consolidation. There are no pleural effusions.[ IMPRESSION: No active disease in the chest. Electronically signed by: Travis Garnica M.D. 03/29/2017 5:12 PM Dictated Date/Time: 03/29/2017 5:10 PM
[2017-03-29 17:16] LABS: ALT/SGPT 25 U/L (12-78); BLOOD UREA NITROGEN 17 mg/dl (7-18); BUN/CREATININE RATIO 20.7 (10-20); CALCIUM 8.6 mg/dl (8.5-10.1); CARBON DIOXIDE 31 mmol/L (21-32); CHLORIDE 108 mmol/L (98-107); CREATININE 0.84 mg/dl (0.60-1.20); GLUCOSE 175 mg/dl (70-99); MAGNESIUM 2.1 mg/dl (1.8-2.4); POTASSIUM 3.9 mmol/L (3.5-5.1); SODIUM 142 mmol/L (136-145)
[2017-03-29 17:27] LABS: ALB/GLOB RATIO 1.1 (0.9-2); ALKALINE PHOSPHATASE 98 U/L (45-117); AST/SGOT 20 U/L (15-37)
--- NOTE | 2017-03-29 18:07 | DIAGNOSTIC IMAGING REPORT ---
CT OF THE HEAD WITHOUT CONTRAST CLINICAL HISTORY: Confusion, unresponsive episode COMPARISON STUDY: Head CT December 07, 2016. CT DOSE: 638.56 mGycm TECHNIQUE: Helical axial images of the head were obtained without IV contrast. Automated exposure control was utilized for the study. A dose lowering technique was utilized adhering to the principles of ALARA. FINDINGS: No acute intracranial hemorrhage, midline shift or mass effect is present. Ventricular system is stable. Basilar cisterns are patent. There are no extra-axial collections. Extensive white matter hypodensities are unchanged. An old lacunar infarct within the right thalamus is noted. There are no findings to suggest acute dural sinus thrombosis or acute territorial infarct. There are no significant calvarial abnormalities. Visualized portions of the sinuses and mastoid air cells are clear. IMPRESSION: No acute intracranial findings. Electronically signed by: Jairo Wynn M.D. 03/29/2017 6:05 PM Dictated Date/Time: 03/29/2017 6:02 PM
[2017-03-29] MEDS ORDERED: LORA-741 PO (18:09)
[2017-03-29] MEDS ORDERED: XPNINS125 NEB (18:09)
[2017-03-29] MEDS ORDERED: IBUP-1050 PO (18:09)
[2017-03-29] MEDS ORDERED: SODIUM CHLORIDE 0.9% 1000ML 1,000 ML IV STA (18:18)
[2017-03-29 20:18] LABS: URINE APPEARANCE CLEAR (CLEAR); URINE BILIRUBIN NEG (NEG); URINE COLOR YELLOW; URINE EPITHELIAL CELL AUTO >30 /lpf (0-5); URINE NITRITE NEG (NEG); URINE SPECIFIC GRAVITY 1.021 (1.000-1.030); UROBILINOGEN NEG (NEG); ZZURINE CULT IF INDIC CATH NO
[2017-03-29 20:21] LABS: MANUAL MICROSCOPIC REQUIRED? NO; REVIEW REQ? YES
[2017-03-29 20:31] LABS: URINE PATH CASTS 1-5 WBC CASTS /lpf (0)
[2017-03-29] MEDS ORDERED: ASPIRIN/ALUM/MAGNES/CAL CARB 325 MG TAB PO STA (20:38)
[2017-03-29 20:50] LABS: BENZODIAZEPINE, URINE POS (NEG); COCAINE,URINE NEG (NEG); PHENCYCLIDINE, URINE NEG (NEG)
[2017-03-29] MEDS ORDERED: IV FLUIDS COMPLETED PRN (21:15)
[2017-03-29] MEDS ORDERED: LEVALBUTEROL/IPRATROPIUM NEB INH PRN (22:00)
[2017-03-29] MEDS ORDERED: NITROGLYCERIN 0.4 MG SL PER TAB CHARGE SL PRN (22:00)
[2017-03-29] MEDS ORDERED: LACTATED RINGER'S 1000ML 1,000 ML IV ONE (22:00)
[2017-03-29] MEDS ORDERED: IPRATROPIUM BROMIDE NEB SOLN 0.02% 2.5 ML VIAL INH PRN (22:45)
[2017-03-29] MEDS ORDERED: LEVALBUTEROL 1.25MG/0.5ML NEB INH PRN (22:45)
[2017-03-29 22:49] VITALS: BP 157/86; PULSE 74; TEMP 36.5; O2SAT 95
[2017-03-29] MEDS: ANORO ELLIPTA~ORDER AWAITING ACTION SCH (23:55)
[2017-03-30 00:01] VITALS: BP 157/86; PULSE 74; TEMP 36.5; O2SAT 95; Ht 162.6 cm; Wt 62.3 kg
[2017-03-30 03:52] VITALS: BP 163/68; PULSE 65; TEMP 36.4; O2SAT 100
--- NOTE | 2017-03-30 05:19 | History and Physical ---
History & Physical Date & Time of Service: Mar 30, 2017 at 05:19 Chief Complaint: Unresponsive Episode Primary Care Physician: Jose Juan Alejandra III, M.D. History of Present Illness Source: patient, family, clinic records, hospital records Recent confinement last January 2017 for CVA. Patient initially discharged to rehabilitation subsequent to discharged to a personal shelter. 2 weeks ago patient and family were in touch with patient's PCP regarding visual hallucinations. Patient seeing relatives. Patient initially stopped Plavix thinking medications were causing it. Patient had PCP visit a few days ago. Patient complained of sleep issues. As per note, patient told she could take lorazepam 3 times a day as needed, 2 tablets as needed at bedtime for insomnia. Yesterday patient sat down on her couch because she felt sick, some nausea. Building preventive maintenance coordinator needed to inspect plumbing in her apartment went inside when patient would not open door. Patient noted to be unresponsive. Patient subsequently more awake at the emergency room. Denies chest pain, shortness of breath, dysuria symptoms. Admits to some anxiety, denies depression. Patient's family concerned about sedative misuse. Patient claims she took only 2 tablets of recently refilled lorazepam prescription of 90 tablets the day before. Patient unwilling to let her sons go through her pill bottles. Patient claims she gave her bottle of lorazepam to a friend for safe keeping because somebody is stealing pills in and their building. 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 at the mental health unit Chronic anemia Surgical Problems: History of cataract surgery Status: Chronic S/P laser trabeculoplasty of eye Status: Chronic Gynecologic procedures Family History FH: cancer FH: gallbladder disease FH: lung disease Kidney stones Social History Smoking Status: Former Smoker Alcohol Use: past history EtOH dependence as per records Drug Use: none Marital Status: Housing status: lives alone 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, 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) Immunizations History of Influenza Vaccine: Yes Influenza Vaccine Date: Jun 09, 2013 History of Tetanus Vaccine?: Yes Tetanus Immunization Date: Oct 09, 1989 History of Pneumococcal: Yes Pneumococcal Date: Oct 09, 1989 History of Hepatitis B Vaccine: Yes Hepatitis Immunization Date: Sep 10, 1994 Multi-Drug Resistant Organisms History of MDRO: No Allergies Coded Allergies: No Known Allergies (Unverified , 03/29/17) Home Medications Scheduled Amlodipine (Norvasc), 10 MG PO DAILY Aspirin (Aspirin EC Low Dose), 81 MG PO QAM Atenolol (Tenormin), 75 MG PO BID Atorvastatin (Atorvastatin Calcium), 40 MG PO QAM Clopidogrel Bisulfate (Clopidogrel), 75 MG PO QAM Fish Oil ([place]-3), 1 CAP PO DAILY Fluticasone Furoate (Inhalatio (Arnuity Ellipta), 1 PUFF PO DAILY Gabapentin (Gabapentin), 300 MG PO TID Home O2 Therapy (Oxygen), 2.5 LITERS NA CONTINOUS Lisinopril (Zestril), 40 MG PO DAILY Multivitamin (Multivitamin), 1 TAB PO DAILY Sertraline (Zoloft), 100 MG PO DAILY Umeclidinium-Vilanterol (Anoro Ellipta 62.5-25 Mcg/INH), 1 PUFF PO DAILY Scheduled PRN Albuterol Sulfate (Proair Respiclick), 2 PUFF INH Q4 PRN for SOB/Wheezing Ibuprofen (Advil), 200 MG PO Q6 PRN for Pain Levalbuterol (Levalbuterol HCl), 1.25 MG NEB Q8 PRN for Wheezing Loperamide Hcl (Imodium), 2 MG PO DAILY PRN for Diarrhea Lorazepam (Ativan), 0.5 MG PO TID PRN for Anxiety Review of Systems As per history of present illness all other ROS negative Physical Exam Vital Signs Date Time Temp Pulse Resp B/P (MAP) Pulse Ox O2 Delivery O2 Flow Rate FiO2 03/30/17 04:00 Nasal Cannula 2.5 03/30/17 03:52 36.4 65 18 163/68 (99) 100 Nasal Cannula 2.0 03/30/17 00:01 36.5 74 20 157/86 95 Nasal Cannula 2.5 03/29/17 22:49 36.5 74 20 157/86 (109) 95 Nasal Cannula 2.5 03/29/17 22:24 79 22 168/87 97 03/29/17 20:39 77 18 135/51 100 03/29/17 20:35 75 03/29/17 18:08 66 15 145/77 97 Room Air 03/29/17 17:23 66 16 152/92 94 Nasal Cannula 2.0 03/29/17 16:36 94 Room Air 03/29/17 16:24 36.6 80 24 152/79 94 Room Air 03/29/17 16:22 79 General Appearance: + pertinent finding (oriented to year, some slowed response , occasional yawning) Head: normocephalic Eyes: + pertinent finding (pale palpebral conjunctivae dry buccal mucosa) ENT: + pertinent finding (nasal cannula in place) Neck: supple Respiratory/Chest: + decreased breath sounds Cardiovascular: regular rate, rhythm Abdomen/GI: soft Extremities/Musculoskelatal: non-tender Neurologic/Psych: + pertinent finding (oriented to year, some slowed response, coherent) Skin: + pallor Diagnostics Laboratory Results Results Past 24 Hours Test 03/29/17 16:25 03/29/17 17:41 03/29/17 19:20 03/29/17 20:11 Range/Units White Blood Count 5.78 4.8-10.8 K/uL Red Blood Count 4.19 4.2-5.4 M/uL Hemoglobin 11.8 12.0-16.0 g/dL Hematocrit 38.8 37-47 % Mean Corpuscular Volume 92.6 80-100 fL Mean Corpuscular Hemoglobin 28.2 25-34 pg Mean Corpuscular Hemoglobin Concent 30.4 32-36 g/dl Platelet Count 209 130-400 K/uL Mean Platelet Volume 10.7 7.4-10.4 fL Neutrophils (%) (Auto) 73.2 % Lymphocytes (%) (Auto) 14.7 % Monocytes (%) (Auto) 10.7 % Eosinophils (%) (Auto) 0.9 % Basophils (%) (Auto) 0.3 % Neutrophils # (Auto) 4.23 1.4-6.5 K/uL Lymphocytes # (Auto) 0.85 1.2-3.4 K/uL Monocytes # (Auto) 0.62 0.11-0.59 K/uL Eosinophils # (Auto) 0.05 0-0.5 K/uL Basophils # (Auto) 0.02 0-0.2 K/uL RDW Standard Deviation 45.8 36.4-46.3 fL RDW Coefficient of Variation 13.5 11.5-14.5 % Immature Granulocyte % (Auto) 0.2 % Immature Granulocyte # (Auto) 0.01 0.00-0.02 K/uL Prothrombin Time 10.5 9.0-12.0 SECONDS Prothromb Time International Ratio 1.0 0.9-1.1 Sodium Level 142 136-145 mmol/L Potassium Level 3.9 3.5-5.1 mmol/L Chloride Level 108 98-107 mmol/L Carbon Dioxide Level 31 21-32 mmol/L Anion Gap 3.0 3-11 mmol/L Blood Urea Nitrogen 17 7-18 mg/dl Creatinine 0.84 0.60-1.20 mg/dl Est Creatinine Clear Calc Drug Dose 49.7 ml/min Estimated GFR () 77.2 Estimated GFR (Non- 66.6 BUN/Creatinine Ratio 20.7 10-20 Random Glucose 175 70-99 mg/dl Calcium Level 8.6 8.5-10.1 mg/dl Magnesium Level 2.1 1.8-2.4 mg/dl Total Bilirubin 0.2 0.2-1 mg/dl Aspartate Amino Transf (AST/SGOT) 20 15-37 U/L Alanine Aminotransferase (ALT/SGPT) 25 12-78 U/L Alkaline Phosphatase 98 45-117 U/L Troponin I < 0.015 0-0.045 ng/ml Pro-B-Type Natriuretic Peptide 293 0-1800 pg/ml Total Protein 7.1 6.4-8.2 gm/dl Albumin 3.7 3.4-5.0 gm/dl Globulin 3.4 2.5-4.0 gm/dl Albumin/Globulin Ratio 1.1 0.9-2 Lipase 172 73-393 U/L Thyroid Stimulating Hormone (TSH) 0.930 0.300-4.500 uIu/ml Lactic Acid Level 1.4 0.4-2.0 mmol/L Ethyl Alcohol mg/dL < 3.0 0-3 mg/dl Urine Color YELLOW Urine Appearance CLEAR CLEAR Urine pH 6.0 4.5-7.5 Urine Specific [place] 1.021 1.000-1.030 Urine Protein TRACE NEG Urine Glucose (UA) NEG NEG Urine Ketones NEG NEG Urine Occult Blood NEG NEG Urine Nitrite NEG NEG Urine Bilirubin NEG NEG Urine Urobilinogen NEG NEG Urine Leukocyte Esterase NEG NEG Urine WBC (Auto) 1-5 0-5 /hpf Urine RBC (Auto) 0-4 0-4 /hpf Urine Hyaline Casts (Auto) 10-30 0-5 /lpf Urine Epithelial Cells (Auto) >30 0-5 /lpf Urine Bacteria (Auto) NEG NEG Urine Renal Epithelial Cells 0-5 0-5 /lpf Urine Pathogenic Casts 1-5 WBC CASTS 0 /lpf Urine Opiates Screen NEG NEG Urine Methadone, Qualitative NEG NEG Urine Barbiturates NEG NEG Urine Phencyclidine (PCP) Level NEG NEG Ur Amphetamine/Methamphetamine NEG NEG MDMA (Ecstasy) Screen NEG NEG Urine Benzodiazepines Screen POS NEG Urine Cocaine Metabolite NEG NEG Urine Marijuana (THC) NEG NEG Test 03/30/17 04:44 Range/Units Diagnostic Radiology CT head no acute pathology EKG As per my interpretation rate 75 normal sinus rhythm, nonspecific T wave abnormalities Impression Assessment and Plan AP Unresponsiveness possibly from benzo overdose/misuse hx benzo abuse from 2009 confinement at the mental health unit Rule out seizures, with history of CVA Chronic respiratory failure secondary to COPD on supplemental home O2, pulmo- status at baseline Past tobacco abuse Hypertension stable Anxiety/mood disorder, symptoms at baseline History of PE status post anticoagulation History of IBD Chronic anemia, hemoglobin at baseline OBS PCU hold benzo for now until mentation at baseline and patient forthcoming about actual benzo use (Benzo misuse may need to be communicated to patient's PCP) EEG re: unresponsiveness rule out seizures PTOT eval Social service re: discharge planning DVT prophylaxis Lovenox subcutaneous Full code as per patient Patient's son/POA, Mr. Landen Liu requesting updates from providers. Contact numbers : [phone] Advanced Directives Existing Living Will: Yes Existing Power of National Expansion Recruiter: Yes VTE Prophylaxis VTE Risk Assessment Done? Y/N: Yes Risk Level: Moderate
[2017-03-30 06:30] LABS: BASO % 0.3 %; BASO ABS # 0.02 K/uL (0-0.2); COMPLETE YES; EOS % 1.2 %; HEMATOCRIT 34.5 % (37-47); IG% 0.2 %; LYMPH % 20.4 %; LYMPH ABS # 1.18 K/uL (1.2-3.4); MEAN CELL VOLUME 91.5 fL (80-100); MEAN CORPUSCULAR HEMOGLOBIN 28.6 pg (25-34); MEAN CORPUSCULAR HGB CONC 31.3 g/dl (32-36); MEAN PLATELET VOLUME 9.7 fL (7.4-10.4); MONO % 10.9 %; PLATELET COUNT 186 K/uL (130-400); RED BLOOD COUNT 3.77 M/uL (4.2-5.4); WHITE BLOOD COUNT 5.79 K/uL (4.8-10.8)
[2017-03-30] MEDS: ANORO ELLIPTA~ORDER AWAITING ACTION SCH ×3 (07:15→23:22)
[2017-03-30] MEDS: SERTRALINE HCL 100 MG TAB PO SCH (07:47)
[2017-03-30] MEDS: LISINOPRIL 40 MG TAB PO SCH (07:47)
[2017-03-30] MEDS: CLOPIDOGREL BISULFATE 75 MG TAB PO SCH (07:47)
[2017-03-30] MEDS: ENOXAPARIN 40 MG/0.4 ML SYR SC SCH (07:48)
[2017-03-30] MEDS: ATORVASTATIN 40 MG TAB PO SCH (07:48)
[2017-03-30] MEDS: AMLODIPINE BESYLATE 5 MG TAB PO SCH (07:48)
[2017-03-30] MEDS: MULTIVITAMIN TAB PO SCH (07:48)
[2017-03-30] MEDS: GABAPENTIN 300 MG CAP PO SCH ×3 (07:48→20:42)
[2017-03-30] MEDS: ASPIRIN 81 MG ECTAB PO SCH (07:48)
[2017-03-30 07:54] VITALS: BP 137/69; PULSE 70; TEMP 36.7; O2SAT 97
--- NOTE | 2017-03-30 07:59 | Progress Note ---
Internal Med Progress Note Date of Service: Mar 30, 2017. Provider Documentation: SUBJECTIVE: Seen and examined at bedside. Alert, awake and oriented. States 2 took 2 tablets of Ativan as she was feeling nauseous yesterday and thought it would help Currently denies nausea, vomiting, chest pain, SOB, weakness, numbness Denies any suicidal thoughts Reports chronic abdominal pain OBJECTIVE: Vital Signs-as noted below Physical Exam: General Appearance:Moderately built and nourished, no apparent distress Head: normocephalic, Atraumatic Eyes: normal inspection, EOMI, PERRL Neck: supple, Trachea midline Respiratory/Chest: Normal breath sounds, CTA Cardiovascular: S1, S2, No murmur Abdomen/GI:Soft, Non tender, Bowel sounds present Extremities/Musculoskelatal:normal inspection, no edema Neurologic/Psych:grossly no focal neurological deficits Skin: normal color, warm Lab data as noted below. ASSESSMENT & PLAN: ALTERED MENTAL STATUS Likely secondary to Benzodiazepine overdose/Misuse CT Head: no acute pathology Neuro checks No focal deficits on exam EEG: pending Hold sedative meds for now Tox Screen: Positive for Benzos UA:no signs of UTI CXR:normal Discussed with son: Says the Ativan bottle is missing on searching the house Will consult Psychiatry H/O CVA: Continue ASA, Plavix, Lipitor H/O AMBULATORY DYSFUNCTION Secondary to CVA Fall precautions PT/OT SEVERE COPD ON CHRONIC O2 CHRONIC OXYGEN DEPENDENCY No evidence of acute exacerbation continue home inhalers supplemental O2 CROHN'S DISEASE stable, In remission continue Imodium PRN DEPRESSION/ANXIETY stable continue Zoloft Hold Ativan PRN for now HTN Continue lisinopril, atenolol, amlodipine Monitor DYSLIPIDEMIA continue statin DVT PX Lovenox SQ CODE STATUS Full Code DISPOSITION: director of casework services consulted FAMILY CONTACT Patient's son/per fraternity Mr. Kathrine Liu requesting updates from providers. [phone] Vital Signs: Date Time Temp Pulse Resp B/P (MAP) Pulse Ox O2 Delivery O2 Flow Rate FiO2 03/30/17 08:00 Nasal Cannula 2.5 03/30/17 07:54 36.7 70 18 137/69 (91) 97 Nasal Cannula 3.0 03/30/17 04:00 Nasal Cannula 2.5 03/30/17 03:52 36.4 65 18 163/68 (99) 100 Nasal Cannula 2.0 03/30/17 00:01 36.5 74 20 157/86 95 Nasal Cannula 2.5 03/29/17 22:49 36.5 74 20 157/86 (109) 95 Nasal Cannula 2.5 03/29/17 22:24 79 22 168/87 97 03/29/17 20:39 77 18 135/51 100 03/29/17 20:35 75 03/29/17 18:08 66 15 145/77 97 Room Air 03/29/17 17:23 66 16 152/92 94 Nasal Cannula 2.0 03/29/17 16:36 94 Room Air 03/29/17 16:24 36.6 80 24 152/79 94 Room Air 03/29/17 16:22 79 Lab Results: Results Past 24 Hours Test 03/29/17 16:25 03/29/17 17:41 03/29/17 19:20 03/29/17 20:11 Range/Units White Blood Count 5.78 4.8-10.8 K/uL Red Blood Count 4.19 4.2-5.4 M/uL Hemoglobin 11.8 12.0-16.0 g/dL Hematocrit 38.8 37-47 % Mean Corpuscular Volume 92.6 80-100 fL Mean Corpuscular Hemoglobin 28.2 25-34 pg Mean Corpuscular Hemoglobin Concent 30.4 32-36 g/dl Platelet Count 209 130-400 K/uL Mean Platelet Volume 10.7 7.4-10.4 fL Neutrophils (%) (Auto) 73.2 % Lymphocytes (%) (Auto) 14.7 % Monocytes (%) (Auto) 10.7 % Eosinophils (%) (Auto) 0.9 % Basophils (%) (Auto) 0.3 % Neutrophils # (Auto) 4.23 1.4-6.5 K/uL Lymphocytes # (Auto) 0.85 1.2-3.4 K/uL Monocytes # (Auto) 0.62 0.11-0.59 K/uL Eosinophils # (Auto) 0.05 0-0.5 K/uL Basophils # (Auto) 0.02 0-0.2 K/uL RDW Standard Deviation 45.8 36.4-46.3 fL RDW Coefficient of Variation 13.5 11.5-14.5 % Immature Granulocyte % (Auto) 0.2 % Immature Granulocyte # (Auto) 0.01 0.00-0.02 K/uL Prothrombin Time 10.5 9.0-12.0 SECONDS Prothromb Time International Ratio 1.0 0.9-1.1 Sodium Level 142 136-145 mmol/L Potassium Level 3.9 3.5-5.1 mmol/L Chloride Level 108 98-107 mmol/L Carbon Dioxide Level 31 21-32 mmol/L Anion Gap 3.0 3-11 mmol/L Blood Urea Nitrogen 17 7-18 mg/dl Creatinine 0.84 0.60-1.20 mg/dl Est Creatinine Clear Calc Drug Dose 49.7 ml/min Estimated GFR () 77.2 Estimated GFR (Non- 66.6 BUN/Creatinine Ratio 20.7 10-20 Random Glucose 175 70-99 mg/dl Calcium Level 8.6 8.5-10.1 mg/dl Magnesium Level 2.1 1.8-2.4 mg/dl Total Bilirubin 0.2 0.2-1 mg/dl Aspartate Amino Transf (AST/SGOT) 20 15-37 U/L Alanine Aminotransferase (ALT/SGPT) 25 12-78 U/L Alkaline Phosphatase 98 45-117 U/L Troponin I < 0.015 0-0.045 ng/ml Pro-B-Type Natriuretic Peptide 293 0-1800 pg/ml Total Protein 7.1 6.4-8.2 gm/dl Albumin 3.7 3.4-5.0 gm/dl Globulin 3.4 2.5-4.0 gm/dl Albumin/Globulin Ratio 1.1 0.9-2 Lipase 172 73-393 U/L Thyroid Stimulating Hormone (TSH) 0.930 0.300-4.500 uIu/ml Lactic Acid Level 1.4 0.4-2.0 mmol/L Ethyl Alcohol mg/dL < 3.0 0-3 mg/dl Urine Color YELLOW Urine Appearance CLEAR CLEAR Urine pH 6.0 4.5-7.5 Urine Specific [place] 1.021 1.000-1.030 Urine Protein TRACE NEG Urine Glucose (UA) NEG NEG Urine Ketones NEG NEG Urine Occult Blood NEG NEG Urine Nitrite NEG NEG Urine Bilirubin NEG NEG Urine Urobilinogen NEG NEG Urine Leukocyte Esterase NEG NEG Urine WBC (Auto) 1-5 0-5 /hpf Urine RBC (Auto) 0-4 0-4 /hpf Urine Hyaline Casts (Auto) 10-30 0-5 /lpf Urine Epithelial Cells (Auto) >30 0-5 /lpf Urine Bacteria (Auto) NEG NEG Urine Renal Epithelial Cells 0-5 0-5 /lpf Urine Pathogenic Casts 1-5 WBC CASTS 0 /lpf Urine Opiates Screen NEG NEG Urine Methadone, Qualitative NEG NEG Urine Barbiturates NEG NEG Urine Phencyclidine (PCP) Level NEG NEG Ur Amphetamine/Methamphetamine NEG NEG MDMA (Ecstasy) Screen NEG NEG Urine Benzodiazepines Screen POS NEG Urine Cocaine Metabolite NEG NEG Urine Marijuana (THC) NEG NEG Test 03/30/17 06:14 Range/Units White Blood Count 5.79 4.8-10.8 K/uL Red Blood Count 3.77 4.2-5.4 M/uL Hemoglobin 10.8 12.0-16.0 g/dL Hematocrit 34.5 37-47 % Mean Corpuscular Volume 91.5 80-100 fL Mean Corpuscular Hemoglobin 28.6 25-34 pg Mean Corpuscular Hemoglobin Concent 31.3 32-36 g/dl Platelet Count 186 130-400 K/uL Mean Platelet Volume 9.7 7.4-10.4 fL Neutrophils (%) (Auto) 67.0 % Lymphocytes (%) (Auto) 20.4 % Monocytes (%) (Auto) 10.9 % Eosinophils (%) (Auto) 1.2 % Basophils (%) (Auto) 0.3 % Neutrophils # (Auto) 3.88 1.4-6.5 K/uL Lymphocytes # (Auto) 1.18 1.2-3.4 K/uL Monocytes # (Auto) 0.63 0.11-0.59 K/uL Eosinophils # (Auto) 0.07 0-0.5 K/uL Basophils # (Auto) 0.02 0-0.2 K/uL RDW Standard Deviation 45.1 36.4-46.3 fL RDW Coefficient of Variation 13.5 11.5-14.5 % Immature Granulocyte % (Auto) 0.2 % Immature Granulocyte # (Auto) 0.01 0.00-0.02 K/uL
[2017-03-30 15:53] VITALS: BP 138/78; PULSE 71; TEMP 36.6; O2SAT 99
[2017-03-30 19:50] VITALS: BP 153/87; PULSE 75; TEMP 36.8; O2SAT 98
[2017-03-30 23:11] VITALS: BP 135/72; PULSE 67; TEMP 36.6; O2SAT 98
[2017-03-31 03:52] VITALS: BP 122/70; PULSE 58; TEMP 36.8; O2SAT 99
[2017-03-31 07:24] VITALS: BP 155/81; PULSE 63; TEMP 36.6; O2SAT 97
[2017-03-31 07:41] LABS: BUN/CREATININE RATIO 28.6 (10-20); CALCIUM 8.7 mg/dl (8.5-10.1); CREATININE 0.49 mg/dl (0.60-1.20); POTASSIUM 3.6 mmol/L (3.5-5.1)
[2017-03-31] MEDS: ANORO ELLIPTA~ORDER AWAITING ACTION SCH ×3 (07:41→23:50)
[2017-03-31] MEDS: SERTRALINE HCL 100 MG TAB PO SCH (07:48)
[2017-03-31] MEDS: MULTIVITAMIN TAB PO SCH (07:49)
[2017-03-31] MEDS: LISINOPRIL 40 MG TAB PO SCH (07:49)
[2017-03-31] MEDS: CLOPIDOGREL BISULFATE 75 MG TAB PO SCH (07:49)
[2017-03-31] MEDS: ATORVASTATIN 40 MG TAB PO SCH (07:49)
[2017-03-31] MEDS: ASPIRIN 81 MG ECTAB PO SCH (07:49)
[2017-03-31] MEDS: GABAPENTIN 300 MG CAP PO SCH ×3 (07:49→19:24)
[2017-03-31] MEDS: ENOXAPARIN 40 MG/0.4 ML SYR SC SCH (07:50)
[2017-03-31] MEDS: AMLODIPINE BESYLATE 5 MG TAB PO SCH (07:50)
--- NOTE | 2017-03-31 09:17 | Psychiatric Progress Notes ---
Psychiatric Progress Note Date of Service Mar 31, 2017. 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 Complicatingly, she also has a h /o etoh dependance and it is unclear how much alcohol she may be consuming at present (she reports is rare but not abstinent.) I did not find her to be a reliable historian. At first she indicated she has been on ativan for 20+ years and cannot go without, but later tells me she inexplicably does not have any because she threw it away. She has previously told the staff that she gave it to a friend for safe keeping. Review of [place] PDMP indicated she has filled ativan 75 tabs this month so far from Dr Alejandra. She denies that she has been taking temazepam, but this was also filled on 02/28/17. She is highly defensive in discussing her bzd use. As she appears likely to be abusing the medications, in my opinion, she should be tapered off unless they can be administered in a controlled setting (she does own meds in independent living facility presently. ) She denies a h/o bzd withdrawal. Consider decreasing ativan to 0.5mg po qhs for 1 week, then stop. Concern for bzd abuse needs to be communicated to PCP as well. Addendum 10:35 AM: received call from Dr Luis. pt has disclosed to son that she took entirety of her ativan rx. unclear if self harm attempt. will have psych liason nurse revisit her presently to further explore her intention. may need psychiatric admission. please do not discharge until psychiatrically cleared. reviewed no bed availability here today.
--- NOTE | 2017-03-31 10:13 | Progress Note ---
Internal Med Progress Note Date of Service: Mar 31, 2017. Provider Documentation: SUBJECTIVE: Seen and examined at bedside. States she feels well and wanted to be discharged Discussed with son today and patient admitted to him that she took the whole bottle of pills Denies nausea, vomiting, chest pain, SOB Denies any suicidal thoughts OBJECTIVE: Vital Signs-as noted below Physical Exam: General Appearance:Moderately built and nourished, no apparent distress Head: normocephalic, Atraumatic Eyes: normal inspection, EOMI, PERRL Neck: supple, Trachea midline Respiratory/Chest: Normal breath sounds, CTA Cardiovascular: S1, S2, No murmur Abdomen/GI:Soft, Non tender, Bowel sounds present Extremities/Musculoskelatal:normal inspection, no edema Neurologic/Psych:grossly no focal neurological deficits Skin: normal color, warm Lab data as noted below. ASSESSMENT & PLAN: ALTERED MENTAL STATUS secondary to Benzodiazepine abuse Spoke with patient son: Patient admitted to son that she took the whole bottle of pills (unknown number) CT Head: no acute pathology Neuro checks No focal deficits on exam EEG: pending Hold sedative meds for now Tox Screen: Positive for Benzos UA:no signs of UTI CXR:normal Appreciate Psychiatry Input Discussed with on 03/31/17 May need Inpatient Psych H/O CVA: Continue ASA, Plavix, Lipitor H/O AMBULATORY DYSFUNCTION Secondary to CVA Fall precautions PT/OT SEVERE COPD ON CHRONIC O2 CHRONIC OXYGEN DEPENDENCY No evidence of acute exacerbation continue home inhalers supplemental O2 CROHN'S DISEASE stable, In remission continue Imodium PRN DEPRESSION/ANXIETY stable continue Zoloft Hold Ativan PRN for now HTN Continue lisinopril, atenolol, amlodipine Monitor DYSLIPIDEMIA continue statin DVT PX Lovenox SQ CODE STATUS Full Code DISPOSITION: nursing surgical services director consulted FAMILY CONTACT Patient's son/per fraternity Mr. Kathrine Liu requesting updates from providers. [phone] Vital Signs: Date Time Temp Pulse Resp B/P (MAP) Pulse Ox O2 Delivery O2 Flow Rate FiO2 03/31/17 08:00 Room Air 03/31/17 07:24 36.6 63 18 155/81 (105) 97 Room Air 03/31/17 04:00 Nasal Cannula 2.5 03/31/17 03:52 36.8 58 16 122/70 (87) 99 Nasal Cannula 3.0 7/23/17 00:00 Nasal Cannula 2.5 03/30/17 23:11 36.6 67 18 135/72 (93) 98 2.0 03/30/17 19:59 Nasal Cannula 2.5 03/30/17 19:50 36.8 75 18 153/87 (109) 98 2.0 03/30/17 16:00 Nasal Cannula 2.5 03/30/17 15:53 36.6 71 18 138/78 (98) 99 Nasal Cannula 3.0 03/30/17 12:00 Nasal Cannula 2.5 Lab Results: Results Past 24 Hours Test 03/31/17 06:26 Range/Units Sodium Level 144 136-145 mmol/L Potassium Level 3.6 3.5-5.1 mmol/L Chloride Level 108 98-107 mmol/L Carbon Dioxide Level 30 21-32 mmol/L Anion Gap 6.0 3-11 mmol/L Blood Urea Nitrogen 14 7-18 mg/dl Creatinine 0.49 0.60-1.20 mg/dl Est Creatinine Clear Calc Drug Dose 81.8 ml/min Estimated GFR () 108.2 Estimated GFR (Non- 93.3 BUN/Creatinine Ratio 28.6 10-20 Random Glucose 113 70-99 mg/dl Calcium Level 8.7 8.5-10.1 mg/dl
[2017-03-31 12:17] VITALS: BP_SYST 3; PULSE 59; TEMP 36.6; O2SAT 96
--- NOTE | 2017-03-31 12:34 | PSYCHIATRIC CONSULTATION ---
DATE OF CONSULTATION: 03/31/2017 IDENTIFYING INFORMATION: This is a 76-year-old female with a psychiatric history pertinent for benzodiazepine abuse, alcohol dependency, anxiety and recurrent depression. She presently resides at [facility]. History obtained today from the patient on interview. She was a very guarded historian. Information also obtained from her historical records here. CHIEF COMPLAINT: "Why are you asking me these questions? I do not like you." HISTORY OF PRESENT ILLNESS: This is a 76-year-old woman who came in secondary to appearing unresponsive when a building water maintenance supervisor attempted to look at her home and she would not open the door. Per admission documentation 2 weeks ago the patient and family were in touch with PCP's office regarding visual hallucinations, seeing relatives. Plavix was stopped. She has been complaining of sleep issues. Apparently she was told she can take 2 tablets of lorazepam as needed at bedtime for insomnia. She has claimed that she took only 2 tablets of the recently filled lorazepam the day prior to admission, but was unwilling to let her family go through her pill bottles and claimed that she gave her bottle of lorazepam to a friend for safekeeping because somebody was stealing pills in her building. She has denied suicidal ideation or intentions. She was very defensive with the psychiatry liaison nurse willing to provide little additional history. On interview with me this morning I again find her quite defensive. She is initially cooperative until we began discussing her benzodiazepine use history. She tells me she has been taking Ativan for 20+ years and that she cannot get by without it. She states she is taking the Ativan only at bedtime and denies overusing the medication; however, later in the interview she states that she has stopped taking the Ativan and threw the medication away which she is unable to provide any justification for doing so. I reviewed with her that we have record that she filled lorazepam earlier this month. She also denies that she has been taking temazepam despite the fact that it was filled in the end of February. She minimizes a history of problems taking her benzodiazepine correctly. She minimizes her alcohol dependency history. She states she drinks only an occasional alcoholic beverage probably last using about one month ago. She denies intention to harm herself or anyone else. She denies initially that she took an overdose to harm herself, however, later in the day this patient disclosed to her son that she had, infact, taken her entire bottle of ativan and didn't care what happened to her. She then confirmed this to the liaison nurse who saw her again to follow up. She comments "you do not know what I have been through". She describes her dying after a very long illness that she nursed him through for many years and a grandson who suicided at the age of 17. She states that she thinks about these things sometimes but denies flashbacks. She does commonly have nightmares which seem to be associated with historical traumas. She perceives some benefit from Zoloft longstanding for her mood and anxiety. She did not perceive that she has been feeling more confused or forgetful however she is not willing to participate in cognitive testing with me this morning. She does like her apartment in the independent living part of [facility]. She denies hallucinations presently. PAST MEDICAL HISTORY: Chronic respiratory failure on home O2, COPD, Crohn's disease, history of ectopic , hyperlipidemia, hypertension, osteoporosis, history of stroke, history of anemia, cataract surgery, trabeculoplasty, history of gynecologic procedures, spinal stenosis, history of PE, history of foot drop. PAST PSYCHIATRIC HISTORY: It appears she has had at least 2 psychiatric hospitalizations in the past at [facility], last in 2009. No history of suicide attempts known. PREVIOUS MEDICATIONS: Include Prozac, Effexor, Neurontin, Librium, Ativan, temazepam, Neurontin. SOCIAL HISTORY: Currently lives in independent living apartment at [facility] where she moved within the last year. She is . 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 passed around 2006. SUBSTANCE ABUSE HISTORY: The patient has a history of alcohol dependency, previously has consumed alcohol to self-medicate for anxiety. She also has a history of abusing Ativan. She has a history of blackouts at home. FAMILY HISTORY: Grandson committed suicide. REVIEW OF SYSTEMS: The patient denies any physical concerns. She is minimally participatory though in review of systems and is otherwise negative except as per HPI. VITAL SIGNS: temperature 36.6, pulse 63, blood pressure elevated at 155/81, pulse ox 97 on room air. LABORATORIES AND STUDIES: No leukocytosis. She is anemic. Platelets 186. Sodium is normal. EGFR 93.3, random glucose 113 this morning. LFTs were okay yesterday. TSH okay. Toxicology positive only for benzodiazepines. Urinalysis was unconcerning. She had a negative alcohol level on admission. MENTAL STATUS EXAMINATION: This patient is a disheveled female sitting in the hospital bed initially cooperative on approach but quickly becoming guarded and then progressively more irritable. She makes good eye contact. Motor activity notable for mild psychomotor agitation with some shifting of positions and darting movements associated with her anger. Speech is clear, adequately articulated. No aphasia or paraphasias. Thought process is perseverative and she provides inconsistent history at times contradicting herself. Thought content negative for expressed suicidal or homicidal ideation at time of interview, no overt evidence of hallucinations. She is not participatory in cognitive testing. Insight is outwardly limited. Judgment also likely limited as is impulse control at least regarding benzodiazepine use. DIAGNOSES: Benzodiazepine use disorder; MDD, rec, severe (r/o psychotic component w/ recent VH); unspecified anxiety disorder with symptoms of panic and generalized anxiety; history of alcohol dependency. PLAN: The patient is not felt to be a reliable historian. It seems likely that she is abusing her prescribed lorazepam and gives inconsistent accounts regarding how she is utilizing. Given her long history of benzodiazepine abuse and a history of alcohol dependency, this does not appear to be a safe medication for her to have free access to in an unsupervised setting. Unless she can be administered her medications at the facility, I would suggest that she be tapered off of the lorazepam for her own safety and concern about benzodiazepine abuse should be communicated to the prescribing outpatient doctor , Dr. Alejandra, prior to her discharge The [place] PDMP was reviewed as per the HPI and it appears she is filling benzodiazepine prescriptions commonly, often in small quantities which may be an effort by Dr. Alejandra to minimize her access to the medication. I believe Neurontin has historically been of some benefit for her anxiety and retitrating that may help to reduce some of the anxiety in the absence of the benzodiazepine. She denies a history of benzodiazepine withdrawal. It is difficult to know how much she has been taking. As it has become apparent that the patient did intentionally take the remainder of her bottle of ativan without regard to consequences, she should not be medically discharged without psychiatric clearance. She will likely require inpatient psychiatric treatment before she can return home for her safety. Will continue to hold the ativan today secondary to her ingestion, but will consider restarting temporarily at 0.5mg po qhs Saturday if evidence of withdrawal. At present time, please maintain q15 min safety checks. MTDD
[2017-03-31] MEDS: ACETAMINOPHEN 325 MG TAB PO PRN (19:18)
[2017-03-31 20:00] VITALS: O2SAT 96
[2017-03-31 20:04] VITALS: BP 170/83; PULSE 70; TEMP 36.5; O2SAT 98
[2017-03-31 23:34] VITALS: BP 128/70; PULSE 61; TEMP 36.6; O2SAT 98
[2017-04-01] VITALS (10 sets, daily range): BP systolic 132–152; BP diastolic 51–76; PULSE 55–67; TEMP 36.3–37; O2SAT 92–99
[2017-04-01 03:21] LABS: HYDROXYETHYLFLURAZEPAM CONF NEGATIVE NG/ML (CUTOFF=50); HYDROXYMIDAZOLAM NEGATIVE NG/ML (CUTOFF=50); HYDROXYTRIAZOLAM CONF NEGATIVE NG/ML (CUTOFF=50); TEMAZEPAM CONF NEGATIVE NG/ML (CUTOFF=50)
[2017-04-01 06:46] LABS: CREATININE 0.47 mg/dl (0.60-1.20)
[2017-04-01] MEDS: ANORO ELLIPTA~ORDER AWAITING ACTION SCH ×2 (08:00→15:42)
--- NOTE | 2017-04-01 08:00 | Progress Note ---
Internal Med Progress Note Date of Service: Apr 01, 2017. Provider Documentation: SUBJECTIVE: Seen and examined at bedside. Admits to taking 75 pills of lorazepam intentionally. "I was tired of life and I was foolish" States she would not repeat it again and currently denies any suicidal thoughts Had EEG this morning Denies nausea, vomiting, abdominal pain, chest pain, SOB, palpitations Agrees to be admitted to Inpatient Psych unit if necessary OBJECTIVE: Vital Signs-as noted below Physical Exam: General Appearance:Moderately built and nourished, no apparent distress Head: normocephalic, Atraumatic Eyes: normal inspection, EOMI, PERRL Neck: supple, Trachea midline Respiratory/Chest: Normal breath sounds, CTA Cardiovascular: S1, S2, No murmur Abdomen/GI:Soft, Non tender, Bowel sounds present Extremities/Musculoskelatal:normal inspection, no edema Neurologic/Psych:grossly no focal neurological deficits Skin: normal color, warm Lab data as noted below. ASSESSMENT & PLAN: TOXIC ENCEPHALOPATHY secondary to Benzodiazepine Overdose (suicidal attempt) Generalized anxiety disorder and h/o Alcohol dependency Major Depressive Disorder CT Head: no acute pathology Neuro checks No focal deficits on exam EEG: pending Hold sedative meds for now Tox Screen: Positive for Benzos UA:no signs of UTI CXR:normal Appreciate Psychiatry Input Discussed with on 03/31/17 May need Inpatient Psych Plan to restart 0.5mg Ativan Po Q Hs if she develops any signs of withdrawal Continue Zoloft H/O CVA: Continue ASA, Plavix, Lipitor H/O AMBULATORY DYSFUNCTION Secondary to CVA Fall precautions PT/OT SEVERE COPD ON CHRONIC O2 CHRONIC OXYGEN DEPENDENCY No evidence of acute exacerbation continue home inhalers supplemental O2 CROHN'S DISEASE stable, In remission continue Imodium PRN HTN Continue lisinopril, atenolol, amlodipine Monitor DYSLIPIDEMIA continue statin DVT PX Lovenox SQ CODE STATUS Full Code DISPOSITION: vocational services specialist consulted FAMILY CONTACT Patient's son/per fraternity Mr. Kathrine Liu requesting updates from providers. [phone] Vital Signs: Date Time Temp Pulse Resp B/P (MAP) Pulse Ox O2 Delivery O2 Flow Rate FiO2 04/01/17 04:00 96 Room Air 04/01/17 03:59 36.5 56 18 140/71 (94) 98 2.0 04/01/17 00:00 96 Room Air 03/31/17 23:34 36.6 61 18 128/70 (89) 98 2.0 03/31/17 20:04 36.5 70 18 170/83 (112) 98 2.0 03/31/17 20:00 96 Room Air 03/31/17 16:00 Room Air 03/31/17 12:17 36.6 59 18 3/ (1) 96 Nasal Cannula 03/31/17 12:00 Room Air Lab Results: Results Past 24 Hours Test 04/01/17 05:38 Range/Units Creatinine 0.47 0.60-1.20 mg/dl Est Creatinine Clear Calc Drug Dose 85.2 ml/min Estimated GFR () 109.7 Estimated GFR (Non- 94.6
[2017-04-01] MEDS: ASPIRIN 81 MG ECTAB PO SCH (08:03)
[2017-04-01] MEDS: GABAPENTIN 300 MG CAP PO SCH ×3 (08:03→21:10)
[2017-04-01] MEDS: AMLODIPINE BESYLATE 5 MG TAB PO SCH (08:03)
[2017-04-01] MEDS: MULTIVITAMIN TAB PO SCH (08:04)
[2017-04-01] MEDS: ATORVASTATIN 40 MG TAB PO SCH (08:04)
[2017-04-01] MEDS: SERTRALINE HCL 100 MG TAB PO SCH (08:04)
[2017-04-01] MEDS: CLOPIDOGREL BISULFATE 75 MG TAB PO SCH (08:04)
[2017-04-01] MEDS: LISINOPRIL 40 MG TAB PO SCH (08:05)
[2017-04-01] MEDS: ENOXAPARIN 40 MG/0.4 ML SYR SC SCH (08:06)
--- NOTE | 2017-04-01 08:53 | Psychiatric Progress Notes ---
Psychiatric Progress Note Date of Service Apr 01, 2017. Notes ID: Patient reviewed with liaison nurse. Initial consult by Dr. Murphy. CC: "He asked me the wrong questions so I cut him off but I have been depressed " HPI: Today patient is not apologetic for ending interview yesterday but admits that she has been depressed since her and grandson around the same time. Her 17 yo grandson shot himself by her report. 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 She admits that she has been self-medicating with extra Ativan and adds that she is "sick of fighting" with her doctor (Ny) over pills and doesn 't want to take Ativan any more. ROS: denied per 10 systems MSE: alert, cooperative, speech normal, thoughts organized, states wants to live for her 8 grandchildren but needs help to get back on track, no HI/vargas. Imp: major depressive disorder Plan: inpatient psychiatric hospitalization is medically necessary s/p OD benzodiazepine. She currently states she would be agreeable to a 201. She will need MNPR due to O2 tubing so unlikely to have a bed here if medically cleared soon. Liaison will check on status with primary team and assist with bed search as appropriate. There is a 302 petitioning statement on the chart so patient should not be discharged from medical floor AMA.
[2017-04-01] MEDS: ACETAMINOPHEN 325 MG TAB PO PRN ×2 (19:33→23:44)
[2017-04-02] VITALS (8 sets, daily range): BP systolic 121–160; BP diastolic 67–81; PULSE 52–78; TEMP 36.4–36.9; O2SAT 93–100
[2017-04-02] MEDS: ANORO ELLIPTA~ORDER AWAITING ACTION SCH
[2017-04-02] MEDS: ACETAMINOPHEN 325 MG TAB PO PRN ×3 (06:21→23:37)
[2017-04-02 06:42] LABS: BASO % 0.1 %; BASO ABS # 0.01 K/uL (0-0.2); COMPLETE YES; HEMATOCRIT 37.4 % (37-47); IG% 0.1 %; LYMPH % 21.5 %; LYMPH ABS # 1.45 K/uL (1.2-3.4); MEAN CELL VOLUME 91.2 fL (80-100); MEAN CORPUSCULAR HEMOGLOBIN 28.8 pg (25-34); MEAN CORPUSCULAR HGB CONC 31.6 g/dl (32-36); MEAN PLATELET VOLUME 10.1 fL (7.4-10.4); MONO % 9.8 %; NEUT % 67.5 %; PLATELET COUNT 198 K/uL (130-400); WHITE BLOOD COUNT 6.73 K/uL (4.8-10.8)
--- NOTE | 2017-04-02 07:02 | ELECTROENCEPHALOGRAPH REPORT ---
For Dr. Espinal. CLINICAL DIAGNOSIS: Unresponsiveness. EEG DIAGNOSIS: Essentially normal during wakefulness. DESCRIPTION OF TRACING: This EEG was done as a bedside recording with simultaneous video analysis of patient movement and behavior. Photic stimulation is the only stimulus parameter utilized. Hyperventilation was not performed. Drowsiness is not clearly seen, save for very short intervals of intermittent drowsiness which are not followed by sustained sleep. This EEG is characterized by the presence of a moderately well developed background rhythm in the alpha range of up to 9-10 Hz of maximum frequency and 30 microvolts of maximum amplitude. This is maximum in posterior head regions and bilaterally symmetrical. Polymorphic mid frequency theta activity is seen over all head regions without clear focal or regional predominance. Anterior head region maximum bilaterally symmetrical low voltage fast activity in the beta range is present. Photic stimulation provoked some minimal driving response without a photomyogenic or photoparoxysmal component. Episodic drowsiness is seen but is never sustained and no abnormal activations occur. At no time during the waking tracing is there evidence for potentially epileptogenic activity in the form of polyspike or spike wave bursts, focal sharp waves or focal spikes. INTERPRETATION: This EEG is essentially normal during wakefulness and brief duration of drowsiness without evidence for focal or generalized encephalopathy and without evidence for potentially epileptogenic activity. MTDD
[2017-04-02] MEDS: LISINOPRIL 40 MG TAB PO SCH (08:06)
[2017-04-02] MEDS: CLOPIDOGREL BISULFATE 75 MG TAB PO SCH (08:06)
[2017-04-02] MEDS: MULTIVITAMIN TAB PO SCH (08:06)
[2017-04-02] MEDS: GABAPENTIN 300 MG CAP PO SCH ×3 (08:06→21:01)
[2017-04-02] MEDS: ASPIRIN 81 MG ECTAB PO SCH (08:06)
[2017-04-02] MEDS: SERTRALINE HCL 100 MG TAB PO SCH (08:06)
[2017-04-02] MEDS: AMLODIPINE BESYLATE 5 MG TAB PO SCH (08:08)
[2017-04-02] MEDS: ATORVASTATIN 40 MG TAB PO SCH (08:09)
[2017-04-02] MEDS: UMECLIDINIUM VILANTEROL INH SCH (08:10)
[2017-04-02] MEDS: ENOXAPARIN 40 MG/0.4 ML SYR SC SCH (08:11)
[2017-04-02] MEDS ORDERED: UMECLIDINIUM VILANTEROL INH SCH (09:00)
--- NOTE | 2017-04-02 14:43 | Progress Note ---
Internal Med Progress Note Date of Service: Apr 02, 2017. Provider Documentation: SUBJECTIVE: The patient was seen and examined Denies any complaints today OBJECTIVE: Vital Signs-as noted below Exam: General-No distress at rest Eyes-normal ENT-normal Neck-Supple Lungs-Clear to ausucltate bilaterally Heart-Regular,no murmur appreciated Abdomen-Benign,no masses,bowel sound present Extremities-No edema Neuro-AAOx3 Lab data as noted below. ASSESSMENT & PLAN: TOXIC ENCEPHALOPATHY Secondary to Benzodiazepine Overdose (suicidal attempt) Generalized anxiety disorder and h/o Alcohol dependency Major Depressive Disorder CT of the Head-negative Tox Screen: Positive for Benzos UA:no signs of UTI,CXR:normal Appreciate Psychiatry Input and recommendation Discussed with by Dr Luis on 03/31/17 Plan to restart 0.5mg Ativan Po Q Hs if she develops any signs of withdrawal Continue Zoloft Will need Inpatient Psychiatry care H/O CVA: Continue ASA, Plavix, Lipitor H/O AMBULATORY DYSFUNCTION Secondary to CVA Fall precautions PT/OT SEVERE COPD ON CHRONIC O2 CHRONIC OXYGEN DEPENDENCY No evidence of acute exacerbation now Continue Oxygen and Nebulized bronchodilators CROHN'S DISEASE Stable, In remission Continue Imodium PRN HTN Continue lisinopril, atenolol, amlodipine Monitor DYSLIPIDEMIA continue statin DVT PX Lovenox SQ CODE STATUS Full Code DISPOSITION: multicultural services librarian consulted FAMILY CONTACT Patient's son/per fraternity Mr. Kathrine Liu requesting updates from providers. [phone] Vital Signs: Date Time Temp Pulse Resp B/P (MAP) Pulse Ox O2 Delivery O2 Flow Rate FiO2 04/02/17 12:01 96 Nasal Cannula 2.5 04/02/17 11:33 36.8 59 19 151/69 (96) 94 Nasal Cannula 2.0 04/02/17 08:00 96 Nasal Cannula 2.5 04/02/17 07:12 36.9 57 18 128/70 (89) 96 Nasal Cannula 3.0 04/02/17 04:12 36.5 52 16 160/81 (107) 100 Nasal Cannula 3.0 04/02/17 04:00 Nasal Cannula 2.5 04/02/17 00:00 Nasal Cannula 2.5 04/01/17 23:31 36.7 55 16 132/69 (90) 99 Nasal Cannula 3.0 04/01/17 20:00 Nasal Cannula 2.5 04/01/17 19:31 36.8 62 20 139/76 (97) 94 Mask 3.0 04/01/17 16:00 Nasal Cannula 2.5 04/01/17 15:45 36.3 63 18 144/71 (95) 98 Mask 3.0 Lab Results: Results Past 24 Hours Test 04/02/17 06:33 Range/Units White Blood Count 6.73 4.8-10.8 K/uL Red Blood Count 4.10 4.2-5.4 M/uL Hemoglobin 11.8 12.0-16.0 g/dL Hematocrit 37.4 37-47 % Mean Corpuscular Volume 91.2 80-100 fL Mean Corpuscular Hemoglobin 28.8 25-34 pg Mean Corpuscular Hemoglobin Concent 31.6 32-36 g/dl Platelet Count 198 130-400 K/uL Mean Platelet Volume 10.1 7.4-10.4 fL Neutrophils (%) (Auto) 67.5 % Lymphocytes (%) (Auto) 21.5 % Monocytes (%) (Auto) 9.8 % Eosinophils (%) (Auto) 1.0 % Basophils (%) (Auto) 0.1 % Neutrophils # (Auto) 4.53 1.4-6.5 K/uL Lymphocytes # (Auto) 1.45 1.2-3.4 K/uL Monocytes # (Auto) 0.66 0.11-0.59 K/uL Eosinophils # (Auto) 0.07 0-0.5 K/uL Basophils # (Auto) 0.01 0-0.2 K/uL RDW Standard Deviation 44.1 36.4-46.3 fL RDW Coefficient of Variation 13.3 11.5-14.5 % Immature Granulocyte % (Auto) 0.1 % Immature Granulocyte # (Auto) 0.01 0.00-0.02 K/uL
[2017-04-03] VITALS (8 sets, daily range): BP systolic 132–152; BP diastolic 62–82; PULSE 57–74; TEMP 36.5–37; O2SAT 93–100
[2017-04-03] MEDS: ACETAMINOPHEN 325 MG TAB PO PRN ×2 (05:14→21:13)
[2017-04-03] MEDS: UMECLIDINIUM VILANTEROL INH SCH (08:37)
[2017-04-03] MEDS: SERTRALINE HCL 100 MG TAB PO SCH (08:38)
[2017-04-03] MEDS: GABAPENTIN 300 MG CAP PO SCH ×3 (08:38→21:14)
[2017-04-03] MEDS: ENOXAPARIN 40 MG/0.4 ML SYR SC SCH (08:38)
[2017-04-03] MEDS: ASPIRIN 81 MG ECTAB PO SCH (08:39)
[2017-04-03] MEDS: ATORVASTATIN 40 MG TAB PO SCH (08:39)
[2017-04-03] MEDS: LISINOPRIL 40 MG TAB PO SCH (08:39)
[2017-04-03] MEDS: AMLODIPINE BESYLATE 5 MG TAB PO SCH (08:39)
[2017-04-03] MEDS: CLOPIDOGREL BISULFATE 75 MG TAB PO SCH (08:39)
[2017-04-03] MEDS: MULTIVITAMIN TAB PO SCH (08:39)
--- NOTE | 2017-04-03 11:12 | Progress Note ---
Internal Med Progress Note Date of Service: Apr 03, 2017. Provider Documentation: SUBJECTIVE: The patient was seen and examined Denies any complaints today No issue Awaiting to go to in patient psyche care OBJECTIVE: Vital Signs-as noted below Exam: General-No distress at rest Lying in bed comfortably Eyes-normal ENT-normal Neck-Supple Lungs-Clear to ausucltate bilaterally Heart-Regular,no murmur appreciated Abdomen-Benign,no masses,bowel sound present Extremities-No edema Neuro-AAOx3 Lab data as noted below. ASSESSMENT & PLAN: TOXIC ENCEPHALOPATHY-resolved Secondary to Benzodiazepine Overdose (suicidal attempt) Generalized anxiety disorder and h/o Alcohol dependency Major Depressive Disorder CT of the Head-negative Tox Screen: Positive for Benzodiazepines UA:no signs of UTI,CXR:normal Appreciate Psychiatry Input and recommendation Discussed with by Dr Luis on 03/31/17 Plan to restart 0.5mg Ativan Po Q Hs if she develops any signs of withdrawal Continue Zoloft Will need Inpatient Psychiatry care Medically cleared to be transferred H/O CVA: Continue ASA, Plavix, Lipitor H/O AMBULATORY DYSFUNCTION Secondary to CVA Fall precautions PT/OT SEVERE COPD ON CHRONIC O2 CHRONIC OXYGEN DEPENDENCY No evidence of acute exacerbation now Continue Oxygen and Nebulized bronchodilators Remains stable CROHN'S DISEASE Stable, In remission Continue Imodium PRN HTN Continue lisinopril, atenolol, amlodipine Monitor DYSLIPIDEMIA continue statin DVT PX Lovenox SQ CODE STATUS Full Code DISPOSITION: media services director consulted FAMILY CONTACT Patient's son/per fraternity Mr. Kathrine Liu requesting updates from providers. [phone] Medically stable to be discharged Vital Signs: Date Time Temp Pulse Resp B/P (MAP) Pulse Ox O2 Delivery O2 Flow Rate FiO2 04/03/17 07:30 96 Nasal Cannula 2.5 04/03/17 07:05 36.6 64 18 141/67 (91) 96 Nasal Cannula 2.0 04/03/17 04:00 Nasal Cannula 2.5 04/03/17 03:58 36.9 58 20 135/62 (86) 100 Nasal Cannula 2.0 04/03/17 00:26 36.9 60 20 147/77 (100) 98 Nasal Cannula 2.5 04/03/17 00:00 Nasal Cannula 2.5 04/02/17 20:00 Nasal Cannula 2.5 04/02/17 19:44 36.4 66 18 156/68 (97) 97 Nasal Cannula 3.0 04/02/17 16:00 Nasal Cannula 2.5 04/02/17 15:08 36.9 78 18 153/67 (95) 95 Nasal Cannula 3.0 04/02/17 12:01 96 Nasal Cannula 2.5 04/02/17 11:33 36.8 59 19 151/69 (96) 94 Nasal Cannula 2.0
[2017-04-03] MEDS ORDERED: IV FLUIDS COMPLETED PRN (11:45)
--- NOTE | 2017-04-03 15:35 | Psychiatric Progress Notes ---
Psychiatric Progress Note Date of Service Apr 03, 2017. Notes Patient seen for psychiatric follow-up. She is medically cleared and is awaiting placement for psychiatric treatment of depression and intentional overdose. Chief complaint: "I'm feeling better." Subjective: Patient states that her mood is improved since admission, and she is anxious to get onto the next phase of her treatment in the behavioral health unit. She had been waiting on the medical floor for a bed to open up on [address] but was informed that we are not sure when this will occur, and questioned as to whether she would like to reconsider referrals to other facilities. She indicates that she is willing to consider this, as she is anxious to get on with her treatment, so that she can ultimately return home. She feels safe here in the hospital.ROS: ROS: Moist pain, GI complaints, HI, hallucinations, paranoia. Mental status exam: Well-nourished well-developed female appearing her stated age. Lying in bed in no acute distress. Calm and cooperative with interview. Good eye contact and no abnormal movements. Mood is "better," and affect is stable but blunted. She denies suicidal thoughts, homicidal thoughts, and psychosis. Diagnosis: Major depressive disorder, recurrent, severe without psychosis. Status post benzodiazepine overdose. Recommendations: 1. Patient remains willing for voluntary psychiatric hospitalization. She is willing to consider referral to other facilities, as it is unclear when [facility] will have an appropriate bed. I will ask liaison nurse to return and facilitate these referrals. There is a 302 petition on the chart, and patient should not be discharged AGAINST MEDICAL ADVICE.
[2017-04-04] MEDS: ACETAMINOPHEN 325 MG TAB PO PRN (05:18)
[2017-04-04] MEDS: UMECLIDINIUM VILANTEROL INH SCH (07:27)
[2017-04-04] MEDS: CLOPIDOGREL BISULFATE 75 MG TAB PO SCH (07:28)
[2017-04-04] MEDS: ATORVASTATIN 40 MG TAB PO SCH (07:28)
[2017-04-04] MEDS: ASPIRIN 81 MG ECTAB PO SCH (07:28)
[2017-04-04 07:29] VITALS: BP 129/71; PULSE 64; TEMP 36.9; O2SAT 97
[2017-04-04] MEDS: GABAPENTIN 300 MG CAP PO SCH (07:29)
[2017-04-04] MEDS: SERTRALINE HCL 100 MG TAB PO SCH (07:29)
[2017-04-04] MEDS: MULTIVITAMIN TAB PO SCH (07:30)
[2017-04-04] MEDS: ENOXAPARIN 40 MG/0.4 ML SYR SC SCH ×2 (07:31→08:18)
[2017-04-04] MEDS: LISINOPRIL 40 MG TAB PO SCH (07:33)
[2017-04-04] MEDS: AMLODIPINE BESYLATE 5 MG TAB PO SCH (07:34)
[2017-04-04 08:07] LABS: CREATININE 0.55 mg/dl (0.60-1.20)
--- NOTE | 2017-04-04 09:58 | Progress Note ---
Internal Med Progress Note Date of Service: Apr 04, 2017. Provider Documentation: SUBJECTIVE: The patient was seen and examined Denies any complaints today No issues today Will go to the psyche unit today OBJECTIVE: Vital Signs-as noted below Exam: General-No distress at rest Eyes-normal ENT-normal Neck-Supple Lungs-Clear to ausucltate bilaterally Minimally decreased breath sound bilaterally Heart-Regular,no murmur appreciated Abdomen-Benign,no masses,bowel sound present Extremities-No edema Neuro-AAOx3 Lab data as noted below. ASSESSMENT & PLAN: TOXIC ENCEPHALOPATHY-resolved Secondary to Benzodiazepine Overdose (suicidal attempt) Generalized anxiety disorder and h/o Alcohol dependency Major Depressive Disorder CT of the Head-negative Tox Screen: Positive for Benzodiazepines UA:no signs of UTI,CXR:normal Appreciate Psychiatry Input and recommendation Discussed with by Dr Luis on 03/31/17 Plan to restart 0.5mg Ativan Po Q Hs if she develops any signs of withdrawal Continue Zoloft for now Will need Inpatient Psychiatry care Medically cleared to be transferred Will go to psych floor today H/O CVA: Continue ASA, Plavix, Lipitor No issues H/O AMBULATORY DYSFUNCTION Secondary to CVA Fall precautions PT/OT SEVERE COPD ON CHRONIC O2 CHRONIC OXYGEN DEPENDENCY No evidence of acute exacerbation now Continue Oxygen and Nebulized bronchodilators Does not have any acute symptoms CROHN'S DISEASE Stable, In remission Continue Imodium PRN HTN Continue lisinopril, atenolol, amlodipine Monitor DYSLIPIDEMIA continue statin DVT PX Lovenox SQ CODE STATUS Full Code DISPOSITION: visitor services information assistant consulted FAMILY CONTACT Patient's son/per fraternity Mr. Kathrine Liu requesting updates from providers. [phone] Medically stable to be discharged Vital Signs: Date Time Temp Pulse Resp B/P (MAP) Pulse Ox O2 Delivery O2 Flow Rate FiO2 04/04/17 08:00 Nasal Cannula 2.5 04/04/17 07:29 36.9 64 18 129/71 (90) 97 Nasal Cannula 2.0 04/04/17 04:00 Nasal Cannula 2.5 04/04/17 00:00 Nasal Cannula 2.5 04/03/17 23:57 37.0 57 18 132/72 (92) 94 2.0 04/03/17 21:12 62 04/03/17 19:48 36.9 57 16 152/82 (105) 95 2.0 04/03/17 16:00 Room Air 04/03/17 15:19 36.5 74 18 146/71 (96) 93 Nasal Cannula 2.0 Lab Results: Results Past 24 Hours Test 04/04/17 07:00 Range/Units Creatinine 0.55 0.60-1.20 mg/dl Est Creatinine Clear Calc Drug Dose 72.8 ml/min Estimated GFR () 104.1 Estimated GFR (Non- 89.8
--- NOTE | 2017-04-04 12:21 | Discharge Instructions ---
Discharge Instructions Date of Service Apr 04, 2017. Admission Reason for Admission: Unresponsive Episode Discharge Discharge Diagnosis / Problem: Toxic Encephalopathy-resolved,Depression,COPD on Oxygen Discharge Goals Goal(s): Prevent Disease Progression Activity Recommendations Activity Level: Assistance Required (At times) . Additional Information Patient informed of condition: Yes Advance Directives: No DNR: No Level of Care: Skilled (Mental Unit) Communicable Disease: No Prognosis: Stable Oxygen at (LPM): 2-3 liters /min vial NC Wagner Catheter: No Instructions / Follow-Up Instructions / Follow-Up Please make an appointment with your PCP in 1 week following discharge from [facility] Current Hospital Diet Patient's current hospital diet: AHA Diet (Heart Healthy) Discharge Diet Recommended Diet: AHA Diet (Heart Healthy) Pending Studies Studies pending at discharge: no Medical Emergencies . Who to Call and When: Medical Emergencies: If at any time you feel your situation is an emergency, please call 911 immediately. . Non-Emergent Contact Non-Emergency issues call your: Primary Care Provider . Past History Medical & Surgical History: (1) Unresponsive episode (2) COPD (chronic obstructive pulmonary disease) (3) Crohn's disease (4) HTN (hypertension) (5) Depression (6) HLD (hyperlipidemia) (7) Poor memory (8) History of esophagogastroduodenoscopy (EGD) (9) H/O colonoscopy (10) S/P laser trabeculoplasty of eye (11) History of cataract surgery . "Provider Documentation" section prepared by Benoit Tapia. . Core Measure Problem Core Measures: None
[2017-04-04 12:25] VITALS: BP 129/71; PULSE 64; TEMP 36.9; O2SAT 97
--- NOTE | 2017-04-05 08:10 | Discharge Summary ---
Discharge Summary Date of Service Apr 05, 2017. Discharge Summary Admission Date: Mar 29, 2017 at 21:05 Discharge Date: Apr 04, 2017 Principal Diagnosis: Toxic Encephalopathy-resolved,Depression,COPD on Oxygen Secondary Diagnoses/Problems: Please see H&P and Hospital Progress note Consultations: Psychiatry Medication Reconciliation Continued Medications: Albuterol Sulfate (Proair Respiclick) 108 Mcg/Act Aer 2 PUFF INH Q4 PRN for SOB/Wheezing Amlodipine (Norvasc) 10 Mg Tab 10 MG PO DAILY, TAB Aspirin (Aspirin EC Low Dose) 81 Mg Ectab 81 MG PO QAM for 30 Days, #30 Atenolol (Tenormin) 50 Mg Tab 75 MG PO BID, 0 Refills Atorvastatin (Atorvastatin Calcium) 40 Mg Tab 40 MG PO QAM for 30 Days, #30 TAB 2 Refills Clopidogrel Bisulfate (Clopidogrel) 75 Mg Tab 75 MG PO QAM for 30 Days, #30 TAB 2 Refills Fish Oil ([place]-3) 1 Ea Cap 1 CAP PO DAILY Fluticasone Furoate (Inhalatio (Arnuity Ellipta) 100 Mcg/Act Inh 1 PUFF PO DAILY Gabapentin (Gabapentin) 300 Mg Cap 300 MG PO TID for 30 Days, #90 CAP 5 Refills Home O2 Therapy (Oxygen) Gas 2.5 LITERS NA CONTINOUS Levalbuterol (Levalbuterol HCl) 1.25 Mg/3 Ml Nebu 1.25 MG NEB Q8 PRN for Wheezing Lisinopril (Zestril) 40 Mg Tab 40 MG PO DAILY, 0 Refills Loperamide Hcl (Imodium) 2 Mg Cap 2 MG PO DAILY PRN for Diarrhea, CAP Multivitamin (Multivitamin) Tab 1 TAB PO DAILY Sertraline (Zoloft) 100 Mg Tab 100 MG PO DAILY, 0 Refills Umeclidinium-Vilanterol (Anoro Ellipta 62.5-25 Mcg/INH) 1 Aer Aer 1 PUFF PO DAILY Discontinued Medications: Ibuprofen (Advil) 200 Mg Tab 200 MG PO Q6 PRN for Pain, TAB Lorazepam (Ativan) 0.5 Mg Tab 0.5 MG PO TID PRN for Anxiety, TAB Admission Information HPI (per Admitting provider): Recent confinement last January 2017 for CVA. Patient initially discharged to rehabilitation subsequent to discharged to a personal long-term. 2 weeks ago patient and family were in touch with patient's PCP regarding visual hallucinations. Patient seeing relatives. Patient initially stopped Plavix thinking medications were causing it. Patient had PCP visit a few days ago. Patient complained of sleep issues. As per note, patient told she could take lorazepam 3 times a day as needed, 2 tablets as needed at bedtime for insomnia. Yesterday patient sat down on her couch because she felt sick, some nausea. Building telephone maintenance mechanic needed to inspect plumbing in her apartment went inside when patient would not open door. Patient noted to be unresponsive. Patient subsequently more awake at the emergency room. Denies chest pain, shortness of breath, dysuria symptoms. Admits to some anxiety, denies depression. Patient's family concerned about sedative misuse. Patient claims she took only 2 tablets of recently refilled lorazepam prescription of 90 tablets the day before. Patient unwilling to let her sons go through her pill bottles. Patient claims she gave her bottle of lorazepam to a friend for safe keeping because somebody is stealing pills in and their building. 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 at the mental health unit Chronic anemia Surgical Problems: History of cataract surgery Status: Chronic S/P laser trabeculoplasty of eye Status: Chronic Gynecologic procedures Family History FH: cancer FH: gallbladder disease FH: lung disease Kidney stones Social History Smoking Status: Former Smoker Alcohol Use: past history EtOH dependence as per records Drug Use: none Marital Status: Housing status: lives alone 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, 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) Immunizations History of Influenza Vaccine: Yes Influenza Vaccine Date: Jun 09, 2013 History of Tetanus Vaccine?: Yes Tetanus Immunization Date: Oct 09, 1989 History of Pneumococcal: Yes Pneumococcal Date: Oct 09, 1989 History of Hepatitis B Vaccine: Yes Hepatitis Immunization Date: Sep 10, 1994 Multi-Drug Resistant Organisms History of MDRO: No Allergies Coded Allergies: No Known Allergies (Unverified , 03/29/17) Home Medications Scheduled Amlodipine (Norvasc), 10 MG PO DAILY Aspirin (Aspirin EC Low Dose), 81 MG PO QAM Atenolol (Tenormin), 75 MG PO BID Atorvastatin (Atorvastatin Calcium), 40 MG PO QAM Clopidogrel Bisulfate (Clopidogrel), 75 MG PO QAM Fish Oil ([place]-3), 1 CAP PO DAILY Fluticasone Furoate (Inhalatio (Arnuity Ellipta), 1 PUFF PO DAILY Gabapentin (Gabapentin), 300 MG PO TID Home O2 Therapy (Oxygen), 2.5 LITERS NA CONTINOUS Lisinopril (Zestril), 40 MG PO DAILY Multivitamin (Multivitamin), 1 TAB PO DAILY Sertraline (Zoloft), 100 MG PO DAILY Umeclidinium-Vilanterol (Anoro Ellipta 62.5-25 Mcg/INH), 1 PUFF PO DAILY Scheduled PRN Albuterol Sulfate (Proair Respiclick), 2 PUFF INH Q4 PRN for SOB/Wheezing Ibuprofen (Advil), 200 MG PO Q6 PRN for Pain Levalbuterol (Levalbuterol HCl), 1.25 MG NEB Q8 PRN for Wheezing Loperamide Hcl (Imodium), 2 MG PO DAILY PRN for Diarrhea Lorazepam (Ativan), 0.5 MG PO TID PRN for Anxiety Review of Systems As per history of present illness all other ROS negative Physical Ex - H&P Physical Exam Vital Signs Date Time Temp Pulse Resp B/P (MAP) Pulse Ox O2 Delivery O2 Flow Rate FiO2 03/30/17 04:00 Nasal Cannula 2.5 03/30/17 03:52 36.4 65 18 163/68 (99) 100 Nasal Cannula 2.0 03/30/17 00:01 36.5 74 20 157/86 95 Nasal Cannula 2.5 03/29/17 22:49 36.5 74 20 157/86 (109) 95 Nasal Cannula 2.5 03/29/17 22:24 79 22 168/87 97 03/29/17 20:39 77 18 135/51 100 03/29/17 20:35 75 03/29/17 18:08 66 15 145/77 97 Room Air 03/29/17 17:23 66 16 152/92 94 Nasal Cannula 2.0 03/29/17 16:36 94 Room Air 03/29/17 16:24 36.6 80 24 152/79 94 Room Air 03/29/17 16:22 79 General Appearance: + pertinent finding (oriented to year, some slowed response , occasional yawning) Head: normocephalic Eyes: + pertinent finding (pale palpebral conjunctivae dry buccal mucosa) ENT: + pertinent finding (nasal cannula in place) Neck: supple Respiratory/Chest: + decreased breath sounds Cardiovascular: regular rate, rhythm Abdomen/GI: soft Extremities/Musculoskelatal: non-tender Neurologic/Psych: + pertinent finding (oriented to year, some slowed response, coherent) Skin: + pallor Diagnostics - H&P Diagnostics Laboratory Results Results Past 24 Hours Test 03/29/17 16:25 03/29/17 17:41 03/29/17 19:20 03/29/17 20:11 Range/Units White Blood Count 5.78 4.8-10.8 K/uL Red Blood Count 4.19 4.2-5.4 M/uL Hemoglobin 11.8 12.0-16.0 g/dL Hematocrit 38.8 37-47 % Mean Corpuscular Volume 92.6 80-100 fL Mean Corpuscular Hemoglobin 28.2 25-34 pg Mean Corpuscular Hemoglobin Concent 30.4 32-36 g/dl Platelet Count 209 130-400 K/uL Mean Platelet Volume 10.7 7.4-10.4 fL Neutrophils (%) (Auto) 73.2 % Lymphocytes (%) (Auto) 14.7 % Monocytes (%) (Auto) 10.7 % Eosinophils (%) (Auto) 0.9 % Basophils (%) (Auto) 0.3 % Neutrophils # (Auto) 4.23 1.4-6.5 K/uL Lymphocytes # (Auto) 0.85 1.2-3.4 K/uL Monocytes # (Auto) 0.62 0.11-0.59 K/uL Eosinophils # (Auto) 0.05 0-0.5 K/uL Basophils # (Auto) 0.02 0-0.2 K/uL RDW Standard Deviation 45.8 36.4-46.3 fL RDW Coefficient of Variation 13.5 11.5-14.5 % Immature Granulocyte % (Auto) 0.2 % Immature Granulocyte # (Auto) 0.01 0.00-0.02 K/uL Prothrombin Time 10.5 9.0-12.0 SECONDS Prothromb Time International Ratio 1.0 0.9-1.1 Sodium Level 142 136-145 mmol/L Potassium Level 3.9 3.5-5.1 mmol/L Chloride Level 108 98-107 mmol/L Carbon Dioxide Level 31 21-32 mmol/L Anion Gap 3.0 3-11 mmol/L Blood Urea Nitrogen 17 7-18 mg/dl Creatinine 0.84 0.60-1.20 mg/dl Est Creatinine Clear Calc Drug Dose 49.7 ml/min Estimated GFR () 77.2 Estimated GFR (Non- 66.6 BUN/Creatinine Ratio 20.7 10-20 Random Glucose 175 70-99 mg/dl Calcium Level 8.6 8.5-10.1 mg/dl Magnesium Level 2.1 1.8-2.4 mg/dl Total Bilirubin 0.2 0.2-1 mg/dl Aspartate Amino Transf (AST/SGOT) 20 15-37 U/L Alanine Aminotransferase (ALT/SGPT) 25 12-78 U/L Alkaline Phosphatase 98 45-117 U/L Troponin I < 0.015 0-0.045 ng/ml Pro-B-Type Natriuretic Peptide 293 0-1800 pg/ml Total Protein 7.1 6.4-8.2 gm/dl Albumin 3.7 3.4-5.0 gm/dl Globulin 3.4 2.5-4.0 gm/dl Albumin/Globulin Ratio 1.1 0.9-2 Lipase 172 73-393 U/L Thyroid Stimulating Hormone (TSH) 0.930 0.300-4.500 uIu/ml Lactic Acid Level 1.4 0.4-2.0 mmol/L Ethyl Alcohol mg/dL < 3.0 0-3 mg/dl Urine Color YELLOW Urine Appearance CLEAR CLEAR Urine pH 6.0 4.5-7.5 Urine Specific [place] 1.021 1.000-1.030 Urine Protein TRACE NEG Urine Glucose (UA) NEG NEG Urine Ketones NEG NEG Urine Occult Blood NEG NEG Urine Nitrite NEG NEG Urine Bilirubin NEG NEG Urine Urobilinogen NEG NEG Urine Leukocyte Esterase NEG NEG Urine WBC (Auto) 1-5 0-5 /hpf Urine RBC (Auto) 0-4 0-4 /hpf Urine Hyaline Casts (Auto) 10-30 0-5 /lpf Urine Epithelial Cells (Auto) >30 0-5 /lpf Urine Bacteria (Auto) NEG NEG Urine Renal Epithelial Cells 0-5 0-5 /lpf Urine Pathogenic Casts 1-5 WBC CASTS 0 /lpf Urine Opiates Screen NEG NEG Urine Methadone, Qualitative NEG NEG Urine Barbiturates NEG NEG Urine Phencyclidine (PCP) Level NEG NEG Ur Amphetamine/Methamphetamine NEG NEG MDMA (Ecstasy) Screen NEG NEG Urine Benzodiazepines Screen POS NEG Urine Cocaine Metabolite NEG NEG Urine Marijuana (THC) NEG NEG Test 03/30/17 04:44 Range/Units Diagnostic Radiology CT head no acute pathology EKG As per my interpretation rate 75 normal sinus rhythm, nonspecific T wave abnormalities Impression - H&P Impression Assessment and Plan AP Unresponsiveness possibly from benzo overdose/misuse hx benzo abuse from 2009 confinement at the mental health unit Rule out seizures, with history of CVA Chronic respiratory failure secondary to COPD on supplemental home O2, pulmo- status at baseline Past tobacco abuse Hypertension stable Anxiety/mood disorder, symptoms at baseline History of PE status post anticoagulation History of IBD Chronic anemia, hemoglobin at baseline OBS PCU hold benzo for now until mentation at baseline and patient forthcoming about actual benzo use (Benzo misuse may need to be communicated to patient's PCP) EEG re: unresponsiveness rule out seizures PTOT eval Social service re: discharge planning DVT prophylaxis Lovenox subcutaneous Full code as per patient Patient's son/POA, Mr. Landen Liu requesting updates from providers. Contact numbers : [phone] Advanced Directives Existing Living Will: Yes Existing Power of [place]: Yes VTE Prophylaxis VTE Risk Assessment Done? Y/N: Yes Risk Level: Moderate Physical Exam (per Admitting): General Appearance: + pertinent finding (oriented to year, some slowed response, occasional yawning) Head: normocephalic Eyes: + pertinent finding (pale palpebral conjunctivae dry buccal mucosa) ENT: + pertinent finding (nasal cannula in place) Neck: supple Respiratory/Chest: + decreased breath sounds Cardiovascular: regular rate, rhythm Abdomen/GI: soft Extremities/Musculoskelatal: non-tender Neurologic/Psych: + pertinent finding (oriented to year, some slowed response, coherent) Skin: + pallor Hospital Course TOXIC ENCEPHALOPATHY-resolved Secondary to Benzodiazepine Overdose (suicidal attempt) Generalized anxiety disorder and h/o Alcohol dependency Major Depressive Disorder CT of the Head-negative Tox Screen: Positive for Benzodiazepines UA:no signs of UTI,CXR:normal Appreciate Psychiatry Input and recommendation Discussed with by Dr Luis on 03/31/17 Plan to restart 0.5mg Ativan Po Q Hs if she develops any signs of withdrawal Continue Zoloft for now Will need Inpatient Psychiatry care Medically cleared to be transferred Will go to psych floor today H/O CVA: Continue ASA, Plavix, Lipitor No issues H/O AMBULATORY DYSFUNCTION Secondary to CVA Fall precautions PT/OT SEVERE COPD ON CHRONIC O2 CHRONIC OXYGEN DEPENDENCY No evidence of acute exacerbation now Continue Oxygen and Nebulized bronchodilators Does not have any acute symptoms CROHN'S DISEASE Stable, In remission Continue Imodium PRN HTN Continue lisinopril, atenolol, amlodipine Monitor DYSLIPIDEMIA continue statin DVT PX Lovenox SQ CODE STATUS Full Code DISPOSITION: real estate services coordinator consulted FAMILY CONTACT Patient's son/per fraternity Mr. Kathrine Liu requesting updates from providers. [phone] Medically stable to be discharged Total time spent on discharge = 35 minutes This includes examination of the patient, discharge planning, medication reconciliation, and communication with other providers. Discharge Instructions Date of Service Apr 04, 2017. Admission Reason for Admission: Unresponsive Episode Discharge Discharge Diagnosis / Problem: Toxic Encephalopathy-resolved,Depression,COPD on Oxygen Discharge Goals Goal(s): Prevent Disease Progression Activity Recommendations Activity Level: Assistance Required (At times) . Additional Information Patient informed of condition: Yes Advance Directives: No DNR: No Level of Care: Skilled (Mental Unit) Communicable Disease: No Prognosis: Stable Oxygen at (LPM): 2-3 liters /min vial NC Wagner Catheter: No Instructions / Follow-Up Instructions / Follow-Up Please make an appointment with your PCP in 1 week following discharge from [facility] Current Hospital Diet Patient's current hospital diet: AHA Diet (Heart Healthy) Discharge Diet Recommended Diet: AHA Diet (Heart Healthy) Pending Studies Studies pending at discharge: no Medical Emergencies . Who to Call and When: Medical Emergencies: If at any time you feel your situation is an emergency, please call 911 immediately. . Non-Emergent Contact Non-Emergency issues call your: Primary Care Provider . Past History Medical & Surgical History: (1) Unresponsive episode (2) COPD (chronic obstructive pulmonary disease) (3) Crohn's disease (4) HTN (hypertension) (5) Depression (6) HLD (hyperlipidemia) (7) Poor memory (8) History of esophagogastroduodenoscopy (EGD) (9) H/O colonoscopy (10) S/P laser trabeculoplasty of eye (11) History of cataract surgery . "Provider Documentation" section prepared by Benoit Tapia. . Core Measure Problem Core Measures: None <Electronically signed by Benoit Tapia M.D.> Signed: 04/04/17 1221 Signed: Additional Copies To Jose Juan Alejandra III, M.D.
[2017-05-08] MEDS ORDERED: CEFD300C2 PO ×2 (12:51→12:52)
[2017-05-08] MEDS ORDERED: METR-163 PO (12:51)
[2017-05-08] MEDS ORDERED: LCTX PO (12:52)
== END 2017-04-04 13:15 ==
LOC: EDBD 16:09 → C.EDB 16:10 → C.MED 21:05 → ENRESERV 21:36
PROVIDERS: ADMIT Internal Medicine; ATTEND Internal Medicine
DX: G92 Toxic encephalopathy (principal); T42.4X2A Poisoning by benzodiazepines, intentional self-harm, initial encounter; J96.10 Chronic respiratory failure, unspecified whether with hypoxia or hypercapnia; I10 Essential (primary) hypertension; E78.5 Hyperlipidemia, unspecified; J44.9 Chronic obstructive pulmonary disease, unspecified; D64.9 Anemia, unspecified; K50.90 Crohn's disease, unspecified, without complications; M81.0 Age-related osteoporosis without current pathological fracture; F41.1 Generalized anxiety disorder; F32.9 Major depressive disorder, single episode, unspecified; Z79.82 Long term (current) use of aspirin; Z79.899 Other long term (current) drug therapy; Z99.81 Dependence on supplemental oxygen; Z87.891 Personal history of nicotine dependence; Z86.73 Personal history of transient ischemic attack (TIA), and cerebral infarction without residual deficits

== ENCOUNTER 2017-04-04 13:15 | Inpatient (IN) | payer OTHER ==
[~2017-04-04] VITALS: Ht 162.6 cm; Wt 61.8 kg
[~2017-04-04 13:15] MED LIST changes: -ACET-1256 PO; -ATV5 PO; -FLUT0.15 NAE; +IBUP-1050 PO; +LORA-741 PO; -TEMA30CA4 PO; +XPNINS125 NEB
[2017-04-04 14:20] VITALS: BP 156/76; PULSE 66; TEMP 36.8; Ht 162.6 cm; Wt 61.8 kg
[2017-04-04] MEDS ORDERED: ALUMINUM/MAGNESIUM SUSP 30 ML UDC PO PRN (15:30)
[2017-04-04] MEDS ORDERED: LEVALBUTEROL 1.25MG/3ML NEB INH PRN (15:30)
[2017-04-04] MEDS ORDERED: hydrOXYzine HCL 25 MG TAB PO PRN (15:30)
[2017-04-04] MEDS ORDERED: MAGNESIUM HYDROXIDE SUSP 30 ML UDC PO PRN (15:30)
[2017-04-04] MEDS ORDERED: BISMUTH SUBSALICYLATE PER ML OMNICELL CHARGE PO PRN (15:30)
[2017-04-04] MEDS ORDERED: SODIUM CHLORIDE 0.65% NA SOLN 45 ML (OCEAN) PRN (15:30)
[2017-04-04] MEDS ORDERED: ALBUTEROL HFA 8 GM INHALER INH PRN (15:30)
[2017-04-04 20:22] VITALS: BP 133/75; PULSE 73
[2017-04-04] MEDS: ACETAMINOPHEN 325 MG TAB PO PRN (21:32)
[2017-04-04] MEDS: GABAPENTIN 300 MG CAP PO SCH (22:00)
[2017-04-04 22:01] VITALS: BP 152/83; PULSE 67
[2017-04-05] MEDS: hydrOXYzine HCL 25 MG TAB PO PRN ×2 (00:09→01:03)
[2017-04-05 06:57] VITALS: BP_SYST 129; BP_SYST 130; BP_DIAS 68; BP_DIAS 75; PULSE 54; PULSE 65; TEMP 36.4
[2017-04-05] MEDS: UMECLIDINIUM VILANTEROL INH SCH (09:00)
[2017-04-05] MEDS ORDERED: SERTRALINE HCL 100 MG TAB PO SCH (09:00)
[2017-04-05] MEDS ORDERED: [UNRECOGNIZED DRUG - OTHER] PO SCH (09:00)
[2017-04-05] MEDS ORDERED: NON-FORMULARY MEDICATION (Fluticasone Furoate (Inhalatio (Arnuity Ellipta) 1 PUFF) PO SCH (09:00)
[2017-04-05] MEDS ORDERED: UMECLIDINIUM VILANTEROL PO SCH (09:00)
[2017-04-05] MEDS: AMLODIPINE BESYLATE 5 MG TAB PO SCH (10:36)
[2017-04-05] MEDS: ACETAMINOPHEN 325 MG TAB PO PRN ×2 (10:36→20:20)
[2017-04-05] MEDS: ATORVASTATIN 40 MG TAB PO SCH (10:36)
[2017-04-05] MEDS: GABAPENTIN 300 MG CAP PO SCH ×3 (10:36→21:06)
[2017-04-05] MEDS: ASPIRIN 81 MG ECTAB PO SCH (10:36)
[2017-04-05] MEDS: CLOPIDOGREL BISULFATE 75 MG TAB PO SCH (10:36)
[2017-04-05] MEDS: LISINOPRIL 40 MG TAB PO SCH (10:37)
[2017-04-05] MEDS: MULTIVITAMIN TAB PO SCH (10:37)
[2017-04-05] MEDS: OMEGA-3 (PURIFIED FISH OIL) 1 GM CAP PO SCH (10:37)
--- NOTE | 2017-04-05 13:07 | Psychiatric History & Physical ---
History Date of Service Apr 05, 2017. Identifying Data Kyara Liu is a 76-year-old female who currently resides at [facility], who was brought to the emergency after having been found obtunded after an Ativan overdose. She was initially on the medical floor, and cleared for mental health treatment last evening. Information is gathered from the electronic medical record, and the patient, and considered to be reliable. Chief Complaint "I guess I'm an addictive person.". History of Present Illness Kyara Liu is a 76-year-old woman who is known to our service from one previous hospitalization here 10 years ago for depression. At that time her had and her grandson had committed suicide. She says that she has been on Zoloft 100 mg for many years and then felt that it been helping. She does not currently have any psychiatric prescriber's. She gives a retrospective on her depression, saying that after her and her grandson , she resorted to alcohol. She admits that she was abusing vodka at a high level and stopped after her hospitalization. At some point after that Dr. Alejandra gave her Restoril and Ativan which she took when necessary but admits she began abusing that as well. One year ago, she sold her home and moved to [facility] at the urging of her 3 sons. She thought that she would like it there because she had friends there, however she does not and wishes she were back in her own home. Her depression is worsening and on the day of admission to the medical floor, says that she was suicidal and so took what was remaining of her benzodiazepines in a suicide attempt. She said that she had stopped using the benzodiazepines about 3 weeks previous, saying she knew she couldn't use the pills anymore. She is uncertain how many she took or what happened to the bottle. After taking the Ativan, apparently she was found by a maintenance person for [facility], obtunded and unable to answer the door. She was brought in by ambulance. Today, the patient ambulates to the interview room with a walker and continuous oxygen. She is somewhat frail in appearance. She continues to report severe depression but says the suicidal thoughts are "better". She reports that her sleep had been good when she was abusing benzodiazepines, she would run out of her prescriptions early and then would use Benadryl. She says that she cannot sleep without medications. Her appetite is been "not so hot" and her weight has fluctuated by 10 pounds over an unspecified period of time. Her anxiety is "horrible" and says that she gets "all worked up". During these times she experiences butterflies in her stomach, clenching teeth and muscles, and describes a "good feeling inside". She denies any specific triggers to her anxiety. She says that she has experienced some hallucinatory experiences. There were times when sitting in her living room that she felt that she was seeing a movie play out through the lights on her wall. These usually occurred when she was abusing the benzodiazepines. She describes any clear symptoms of OCD although does describe a need for order in her environment. She denies any self-injurious behaviors. She denies any symptoms that would be congruent with a bipolar illness. Past Psychiatric History Current OP Treatment: no current treatment Prior OP Treatment: psychiatrist, therapist Prior Psych Hospitalizations: [facility] Access to a Gun: No Suicide Attempts: No Past Medication Trials None Past Medical/Surgical History History of Concussion/Seizure: Yes (head injury when she fell after his CVA. No seizures) (1) History of CVA (cerebrovascular accident) (2) COPD (chronic obstructive pulmonary disease) (3) HLD (hyperlipidemia) (4) HTN (hypertension) (5) Crohn's disease Allergies Allergies: Coded Allergies: No Known Allergies (Unverified , 03/29/17) Home Medications Scheduled Amlodipine (Norvasc), 10 MG PO DAILY Aspirin (Aspirin EC Low Dose), 81 MG PO QAM Atenolol (Tenormin), 75 MG PO BID Atorvastatin (Atorvastatin Calcium), 40 MG PO QAM Clopidogrel Bisulfate (Clopidogrel), 75 MG PO QAM Fish Oil ([place]-3), 1 CAP PO DAILY Fluticasone Furoate (Inhalatio (Arnuity Ellipta), 1 PUFF PO DAILY Gabapentin (Gabapentin), 300 MG PO TID Home O2 Therapy (Oxygen), 2.5 LITERS NA CONTINOUS Lisinopril (Zestril), 40 MG PO DAILY Multivitamin (Multivitamin), 1 TAB PO DAILY Sertraline (Zoloft), 100 MG PO DAILY Umeclidinium-Vilanterol (Anoro Ellipta 62.5-25 Mcg/INH), 1 PUFF PO DAILY Scheduled PRN Albuterol Sulfate (Proair Respiclick), 2 PUFF INH Q4 PRN for SOB/Wheezing Levalbuterol (Levalbuterol HCl), 1.25 MG NEB Q8 PRN for Wheezing Loperamide Hcl (Imodium), 2 MG PO DAILY PRN for Diarrhea Family History FH: cancer FH: gallbladder disease FH: lung disease Kidney stones History of Suicide: Yes (grandson and great-grandmother) History of Substance Abuse: No Psychiatric History: Yes (grandson with bipolar) Alcohol Use Alcohol Use In Past 12 Months: No AUDIT Total Score: 2 Smoking Use Smoking Status: Former Smoker Last cigarette in June 2016 Substance History Admits to abusing benzodiazepines and a history of alcohol abuse Personal History Lives in: [facility] in her apartment Childhood: Raised by parents Education: graduated from high school, graduated college 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 Relationship History: Children: 3 sons Legal History: none Psychological Trauma History: Denies Hx Traumatic Event, Witness to Others Harmed Review of Systems Constitutional: weakness Eyes: denies: no symptoms, as stated in HPI, eye pain, tearing, itching, redness, discharge, double vision, visual changes, blurred vision, photophobia, other ENT: denies: no symptoms reported, see HPI, ear pain, ear discharge, loss of hearing, tinnitus, nasal pain, nasal congestion, rhinorrhea, epistaxis, sore throat, stidor, throat swelling, mouth pain, mouth swelling, dental pain, gum swelling, other Cardiovascular: denies: no symptoms reported, see HPI, chest pain, chest tightness, chest pressure, diaphoresis, palpitations, syncope, other Respiratory: reports: short of breath (continuous, on continuous O2 2 L) Gastrointestinal: constipation (chronic, with Crohn's) Genitourinary - Female: denies: no symptoms, see HPI, rash, amenorrhea, dysmenorrhea, menorrhagia, metrorrhagia, , vaginal bleeding, vaginal itching, vaginal discharge, vulvadynia, other Musculoskeletal: denies no symptoms reported, denies see HPI, denies back pain , denies gout, denies joint pain, denies joint swelling, denies muscle pain, denies muscle stiffness, denies neck pain, denies other Integumentary: denies no symptoms reported, denies see HPI, denies change in color, denies change in hair/nails, denies dryness, denies lesions, denies lumps , denies rash, denies other Neurologic: denies: no symptoms, see HPI, headache, numbness, paresthesias, pre -existing deficit, seizure, tingling, tremors, general weakness, tics, focal weakness, vertigo, lethargy, memory loss, dizziness, other Endocrine: denies: no symptoms, as stated in HPI, cold intolerance, heat intolerance, hair changes, goiter, polydipsia, polyuria, skin changes, other Hematologic / Lymphatic: denies: no symptoms, as stated in HPI, abnormal clotting, adenopathy, anemia, easy bleeding, easy bruising, gums bleeding, petechiae, other Examination Physical Examination exam performed by Dr. Tapia on the medical floor has been reviewed and accepted as medical clearance for our unit Vital Signs Vital Signs Past 12 Hours Date Time Temp Pulse Resp B/P (MAP) Pulse Ox O2 Delivery O2 Flow Rate FiO2 04/05/17 06:57 36.4 54 16 130/68 65 129/75 Laboratory Results Were performed on the medical floor Mental Examination During interview pt is: alert and oriented, cooperative Appearance: appropriately dressed, appropriately groomed Eye contact is: good Motor behavior is: no abnormal motor movements, other (ambulates with a walker) Speech: normal in rate, rhythm & volume Affect: blunted, anxious Mood is: depressed, anxious Thought process: goal directed Thought content: reality based without delusions Suicidal thought are: present (on the day of admission, admits to intentional Ativan overdose) Homicidal thoughts are: denied Hallucinations: visual (reports having seen a movie playing on her wall while under the influence of benzodiazepines), denies auditory Cognition: attention grossly intact, language grossly intact Intelligence estimated to be: average Insight: impaired Judgement: impaired Impression / Recommendations Impression 76-year-old woman with chronic depression, who is admitted to the hospital following an intentional Ativan overdose. She was medically cleared yesterday. Although she is without suicidal thinking today, she appears severely depressed, and quite frail. No medication adjustments of been made and no treatment has been attempted for her depression while on the medical floor. We have talked about a friend medication management strategies and she would like to increase Zoloft that she has been on for several years. We will increase that to 150 mg daily. We will continue all of her other home medications for her medical conditions. We will put her on fall precautions as she is somewhat frail, weak and requiring a walker to ambulate. We will need to arrange psychiatric follow-up, family meeting. At this point she requires inpatient mental health treatment due to the severity of her depression, significant risk factors including 2 members of her biological family who committed suicide recent severe overdose with intent to , and risk for self-harm if discharged prematurely. 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 Needs: To take medications as prescribed Risk Factors Assessment : Yes /single/: Yes Higher / Fall in social status: No Access to guns: No Health problems: Yes Mental Health Diagnoses: Yes Substance use disorders: Yes Previous attempt: No Family history of suicide: Yes Previous psychiatric stay: Yes Hopelessness: No Smoker: No Protective Factors Assessment : No Responsible for young children: No Employed: No Stable relationships: Yes Supportive family: Yes Recommendations (1) Major depressive disorder, recurrent severe without psychotic features 04/05 - Increase Zoloft to 150 mg daily - Every 15 minute checks for safety -Encourage participation in group and individual counseling -Family meeting -The patient will need psychiatric aftercare -Coordinate with [facility] - Patient should have her medications secured post discharge (2) Anxiety disorder, unspecified (3) COPD (chronic obstructive pulmonary disease) 04/05 -Continue O2 by nasal cannula 2 L continuous -Will require a medically necessary private room or cohorting (4) Crohn's disease 04/05 -Patient reports recent pattern of constipation with last bowel movement 2 days ago -Monitor BMs over the course of hospitalization (5) HTN (hypertension) 04/05 -Continue patient's home medications -Monitor BP's (6) HLD (hyperlipidemia) 04/05 -Continue home dose of atorvastatin Has been reviewed with Dr. Altagracia rubio CPT Code Initial Hospital Care: 79054 Problem Qualifiers (1) COPD (chronic obstructive pulmonary disease): COPD type: unspecified COPD Qualified Codes: J44.9 - Chronic obstructive pulmonary disease, unspecified
[2017-04-06 07:02] VITALS: BP_SYST 107; BP_SYST 113; BP_DIAS 61; BP_DIAS 65; PULSE 61; PULSE 67; TEMP 36.8
[2017-04-06] MEDS: ACETAMINOPHEN 325 MG TAB PO PRN (07:06)
[2017-04-06] MEDS: UMECLIDINIUM VILANTEROL INH SCH (09:19)
[2017-04-06] MEDS: MULTIVITAMIN TAB PO SCH (09:20)
[2017-04-06] MEDS: CLOPIDOGREL BISULFATE 75 MG TAB PO SCH (09:20)
[2017-04-06] MEDS: ASPIRIN 81 MG ECTAB PO SCH (09:20)
[2017-04-06] MEDS: GABAPENTIN 300 MG CAP PO SCH ×3 (09:20→20:55)
[2017-04-06] MEDS: OMEGA-3 (PURIFIED FISH OIL) 1 GM CAP PO SCH (09:20)
[2017-04-06] MEDS: ATORVASTATIN 40 MG TAB PO SCH (09:20)
[2017-04-06] MEDS: AMLODIPINE BESYLATE 5 MG TAB PO SCH (09:20)
[2017-04-06] MEDS: LISINOPRIL 40 MG TAB PO SCH (09:21)
[2017-04-06] MEDS: SERTRALINE HCL 50 MG TAB PO SCH (09:21)
--- NOTE | 2017-04-06 09:31 | Psychiatric Progress Notes ---
Progress Note Date of Service Apr 06, 2017. Interval History The patient is a 76year old female with a history of multiple medical concerns, depression and anxiety who was admitted to the medical service s/p TI of benzodiezepenes as a suicidal attempt. She was transferred to inpatient psychiatry on 04/05/17 on voluntary commitment. Chief Complaint "I finally slept last night". Subjective Patient was seen & assessed interval progress reviewed with the treatment team. Per treatment team the patient is denying SI, but appears superficially bright and polite but still seems blunted and down when not directly engaged. She is wearing her O2 continuously and therefore remains on MNPR. The patient reports "I feel a little bit better" when interviewed. She notes she is regretful of her suicide attempt, but then states "because I have to be here to deal with my family finding out." She does state that pain and loneliness have contributed to her suicidal attempt , but that she feels more hopeful today but cannot say what has changed. Discussed that she likes to be around people but has trouble at home because she has so much pain she does not feel like going out, "and I do not drive anymore." Discussed that she historically enjoyed being involved at her druze in [place]. It is a druze where her son still attends and "I could probably get a ride with him....I would enjoy that" She is willing to talk to her son about this. She states she feels more clear headed and less anxious off the benzodiezpenes. SHe is taking the zoloft 150mg (first dose 04/05/17) and denies SE. She slept 6.5hours + overnight and fell and stayed asleep well without sleep aid "the first time in a long time" ROS: ongoing lower back pain, and constipation Review of Systems See above Sleep Information Total Hours of Sleep: 6.50 Meal Information Percent of Breakfast Consumed: 90 Percent of Lunch Consumed: 90 Percent of Dinner Consumed: 90 Mental Status Exam During interview pt is: alert and oriented, cooperative Appearance: appropriately dressed, appropriately groomed Eye contact is: good Motor behavior is: no abnormal motor movements, other (ambulates independently but drives a O2 canister on wheels, stable gait) Speech: normal in rate, rhythm & volume Affect: blunted, anxious Mood is: other ("better" but continues to appear blunted when not being socially polite) Thought process: goal directed Thought content: reality based without delusions Suicidal thought are: denied Homicidal thoughts are: denied Hallucinations: denies auditory, denies visual (had some VH prior to admission (movie on her wall) while still on benzos that have abated) Cognition: attention grossly intact, language grossly intact Intelligence estimated to be: average Insight: limited Judgement: limited Impression 76-year-old woman with chronic depression, who is admitted to the hospital following an intentional Ativan overdose. She was medically cleared yesterday and transferred to [facility] psychiatry voluntarily with full H&P on . Although she denies suicidal thinking today, she appears severely depressed by staff observation, and quite frail. 04/05/17 zoloft was increased from 100mg/d to 150 mg daily. We continued all of her other home medications for her medical conditions and she is on fall precautions as she is somewhat frail, weak ambulating wtih a O2 canister on wheels. At this point she requires inpatient mental health treatment due to the severity of her depression, significant risk factors including 2 members of her biological family who committed suicide recent severe overdose with intent to , and risk for self-harm if discharged prematurely to include need to establish f/u care, family meeting, and discussion of ways to mitigate risk factors to include social isolation, pain and assure she is tolerating the medication changes made and monitoring for futher evidence of s/sx of withdrawal. It is hard to discern if patient is truly feeling better slowly or if she is saying the socially appropriate answers to either please her care providers or to work towards release prior to truly feeling better. As her behavior and blunted affect is dissident with her socially bright/politeness when engaged by staff will need to observe closely to avoid discharge of apatient that has internally resolved suicide and not disclosing. Plan (1) Major depressive disorder, recurrent severe without psychotic features 04/05 - Increase Zoloft to 150 mg daily - Every 15 minute checks for safety -Encourage participation in group and individual counseling -Family meeting -The patient will need psychiatric aftercare -Coordinate with [facility] - Patient should have her medications secured post discharge 04/06 - continue as above - do not prefer vistaril for sleep but she did not need it overnight. Will keep it as prn, if she needs ongoing sleep aid during her stay will consider change to remeron low dose (reluctant to add today while we watch the impact of zoloft increase with goal not to add addition 5HT med just yet, and it may not be needed) - to mitigate risks for safety will work on increasing tylenol to 1000mg tid (avoid ibuprofen as she was taking up to 600-800mg bid to tid at home due to risks to stomach and while on plavix) and recommend physical activity to include stretches that she knows AND paced movement throughout the unit; further work on social contacts by patient asking her son to take her to her prior druze in [place] on Sundays (2) Anxiety disorder, unspecified See depression as above (3) COPD (chronic obstructive pulmonary disease) 04/05 -Continue O2 by nasal cannula 2 L continuous -Will require a medically necessary private room or cohorting (4) Crohn's disease 04/05 -Patient reports recent pattern of constipation with last bowel movement 2 days ago -Monitor BMs over the course of hospitalization 04/06 - add colace to her regimen to help with less hard BM (5) HTN (hypertension) 04/05 -Continue patient's home medications -Monitor BP's (6) HLD (hyperlipidemia) 04/05 -Continue home dose of atorvastatin Discharge / Aftercare Planning Primary Care Physician: Name: Dr Alejandra Visit Code E&M Code: 17704 Inventory Assets Strengths: Love of her family, 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 Needs: To take medications as prescribed Risk Factors Assessment : Yes /single/: Yes Higher / Fall in social status: No Health problems: Yes Mental Health Diagnoses: Yes Substance use disorders: Yes Previous attempt: No Family history of suicide: Yes Previous psychiatric stay: Yes Hopelessness: No Smoker: No Protective Factors Assessment : No Responsible for young children: No Employed: No Stable relationships: Yes Supportive family: Yes Data Vital Signs Last 24 Hrs: Date Time Temp Pulse Resp B/P (MAP) Pulse Ox O2 Delivery O2 Flow Rate FiO2 04/06/17 07:02 36.8 61 16 107/65 67 113/61 Meds Administered Last 24 Hrs: Meds Administered (Past 24Hrs) Medications (Trade) Dose Ordered Sig/Ashlee Route Start Time Stop Time Status Last Admin Dose Admin Acetaminophen (Tylenol Tab) 650 mg Q4H PRN PO 04/04/17 15:30 05/04/17 15:29 04/06/17 07:06 650 MG Hydroxyzine HCl (Vistaril Tab) 50 mg HSZ PRN PO 04/04/17 15:30 05/04/17 15:29 04/05/17 01:03 50 MG Amlodipine Besylate (Norvasc Tab) 10 mg DAILY PO 04/05/17 09:00 05/05/17 08:59 04/05/17 10:36 10 MG Aspirin (Ecotrin Tab) 81 mg QAM PO 04/05/17 09:00 05/05/17 08:59 04/05/17 10:36 81 MG Atenolol (Tenormin Tab) 75 mg BID PO 04/04/17 22:00 05/04/17 21:59 04/05/17 21:07 75 MG Atorvastatin Calcium (Lipitor Tab) 40 mg QAM PO 04/05/17 09:00 05/05/17 08:59 04/05/17 10:36 40 MG Clopidogrel Bisulfate (plAVix TAB) 75 mg QAM PO 04/05/17 09:00 05/05/17 08:59 04/05/17 10:36 75 MG Fish Oil ([place]-3 (Purified Fish Oil) Cap) 1 gm DAILY PO 04/05/17 09:00 05/05/17 08:59 04/05/17 10:37 1 GM Gabapentin (Neurontin Cap) 300 mg TID PO 04/04/17 22:00 05/04/17 21:59 04/05/17 21:06 300 MG Lisinopril (Zestril Tab) 40 mg DAILY PO 04/05/17 09:00 05/05/17 08:59 04/05/17 10:37 40 MG Multivitamins (Multivitamin Tab) 1 tab DAILY PO 04/05/17 09:00 05/05/17 08:59 04/05/17 10:37 1 TAB Sertraline HCl (Zoloft Tab) 100 mg DAILY PO 04/05/17 09:00 04/05/17 13:08 DC 04/05/17 10:37 100 MG Fluticasone Furoate (Arnuity Ellipta) 100 mcg DAILY INH 04/05/17 09:00 05/05/17 08:59 04/05/17 09:00 100 MCG Problem Qualifiers (1) COPD (chronic obstructive pulmonary disease): COPD type: unspecified COPD Qualified Codes: J44.9 - Chronic obstructive pulmonary disease, unspecified
[2017-04-06] MEDS ORDERED: DOCUSATE SODIUM 100 MG CAP PO ONE (09:45)
[2017-04-06] MEDS: ACETAMINOPHEN 500 MG TAB PO SCH (15:39)
[2017-04-06] MEDS: DOCUSATE SODIUM 100 MG CAP PO SCH (20:55)
[2017-04-06 21:01] VITALS: BP 131/72; PULSE 70
[2017-04-07] MEDS: ACETAMINOPHEN 500 MG TAB PO SCH ×2 (00:10→09:53)
[2017-04-07 06:06] VITALS: BP_SYST 133; BP_SYST 135; BP_DIAS 72; BP_DIAS 79; PULSE 59; PULSE 60; TEMP 36.4
[2017-04-07] MEDS: UMECLIDINIUM VILANTEROL INH SCH (09:00)
--- NOTE | 2017-04-07 09:37 | Psychiatric Progress Notes ---
Progress Note Date of Service Apr 07, 2017. Interval History The patient is a 76year old female with a history of multiple medical concerns, depression and anxiety who was admitted to the medical service s/p TI of benzodiezepenes as a suicidal attempt. She was transferred to inpatient psychiatry on 04/05/17 on voluntary commitment. Chief Complaint "I feel a little better today, I am in pain though". Subjective Patient was seen & assessed interval progress reviewed with nursing Per nursing patinet does seem to be a little bit brighter. She slept well without a prn sleep aid, and is attending groups. She seems to have an improving affect. Met with patient she rates her mood as a 5/10 (10 best/euthymic, 0 most depressed) today Anxiety is a 3-4/10 (10 worst,0 none) today she has lower back pain giving a mixed response that the tylenol 1000mg tid "helps some" "but I though if I took a dose more often it would do better" she again asks about ibuprofen, provider noted withher plavix, and sertraline and the nature of her chronic pain and risk for bleeding, GI and kidney health I did not feel comfortable. She noted nursing had an intervention "with those little black bead things that helped" encouraged her to resume/continue this. She notes she knows stretches and tries to do them but feels inhibited by the pain as well. She has "fleeting" thoughts of "what is the point?" but denies Suicidal intention or plan. SHe regrets her suicide attempt but namely "because it hurts my family" SHe continues to express ambivalence about relying others for transportation wtih the loneliness she has in her new home. SHe is able to appreciate some good aspects of the move last year and the loss at the same time. She expressed ambivalence about working wtih DR Alejandra feeling his prescribing two benzos caused her addictive nature trouble. SPent >17min discussing her interpersonal connectivity, and her losses in the last years, and challenging herself to be more interdependent. SHe participates actively and agrees Attempted to process her ambivalence about her PCM relationship and to stay wtih Dr Alejandra vs. to transfer and that there are positives and draw backs to either choice, she elects to "stay with Dr Alejandra" Review of Systems ROS: back pain in lower back radiating to right leg, unchanged and ongoing modest releif from tylenol increase with scheduled doses dizziness - started "when I had the EEG" occurs random times sometimes provoked by moving her head too fast and sometimes by looking down, but denies feeling unsteady and not all the time, no worse wtih increase of zoloft the last few days "actually a little bit better with time, but just still there....not bad, just mentioning it because you asked" reviewed med changes from hospital stay medically and psychiatrically SOB wtih ambulation o/w denies physical concerns Sleep Information Total Hours of Sleep: 5.25 Meal Information Percent of Breakfast Consumed: 95 Percent of Lunch Consumed: 85 Percent of Dinner Consumed: 90 Mental Status Exam During interview pt is: alert and oriented, cooperative Appearance: appropriately dressed, appropriately groomed Eye contact is: good Motor behavior is: no abnormal motor movements, other (ambulates independently but drives a O2 canister on wheels, stable gait) Speech: normal in rate, rhythm & volume Affect: blunted, anxious Mood is: other ("better" but continues to appear blunted when not being socially polite) Thought process: goal directed Thought content: reality based without delusions Suicidal thought are: denied Homicidal thoughts are: denied Hallucinations: denies auditory, denies visual (had some VH prior to admission (movie on her wall) while still on benzos that have abated) Cognition: attention grossly intact, language grossly intact Intelligence estimated to be: average Insight: limited Judgement: limited Impression 76-year-old woman with chronic depression, who is admitted to the hospital following an intentional Ativan overdose. She was medically cleared yesterday and transferred to [facility] psychiatry voluntarily with full H&P on . Although she denies suicidal thinking today, she appears severely depressed by staff observation, and quite frail. 04/05/17 zoloft was increased from 100mg/d to 150 mg daily. We continued all of her other home medications for her medical conditions and she is on fall precautions as she is somewhat frail, weak ambulating wtih a O2 canister on wheels. At this point she requires inpatient mental health treatment due to the severity of her depression, significant risk factors including 2 members of her biological family who committed suicide recent severe overdose with intent to , and risk for self-harm if discharged prematurely to include need to establish f/u care, family meeting, and discussion of ways to mitigate risk factors to include social isolation, pain and assure she is tolerating the medication changes made and monitoring for futher evidence of s/sx of withdrawal. 04/06 and 04/07 It is hard to discern if patient is truly feeling better slowly or if she is saying the socially appropriate answers to either please her care providers or to work towards release prior to truly feeling better. As her behavior and blunted affect is dissident with her socially bright/politeness when engaged by staff will need to observe closely to avoid discharge of patient that has internally resolved suicide and not disclosing. Plan (1) Major depressive disorder, recurrent severe without psychotic features 04/05 - Increase Zoloft to 150 mg daily - Every 15 minute checks for safety -Encourage participation in group and individual counseling -Family meeting -The patient will need psychiatric aftercare -Coordinate with Katherine Zavala - Patient should have her medications secured post discharge 04/06 - continue as above - do not prefer vistaril for sleep but she did not need it overnight. Will keep it as prn, if she needs ongoing sleep aid during her stay will consider change to remeron low dose (reluctant to add today while we watch the impact of zoloft increase with goal not to add addition 5HT med just yet, and it may not be needed) - to mitigate risks for safety will work on increasing tylenol to 1000mg tid (avoid ibuprofen as she was taking up to 600-800mg bid to tid at home due to risks to stomach and while on plavix) and recommend physical activity to include stretches that she knows AND paced movement throughout the unit; further work on social contacts by patient asking her son to take her to her prior jain in [place] on Sundays04/07/17 - continue plan as above, but redistribute tylenol to scheduled 650mg qid while awake, and behavioral measures from nursing that helped, she would benefit from specific question directed at Dr Alejandra about options for pain other than ibuprofen as tylenol is not fully effective at this time, furthermore recommend family meeting prior to discharge wtih cory Schuster with specific focus on patient's challenge at being interdependent (2) Anxiety disorder, unspecified See depression as above (3) COPD (chronic obstructive pulmonary disease) 04/05 -Continue O2 by nasal cannula 2 L continuous -Will require a medically necessary private room or cohorting (4) Crohn's disease 04/05 -Patient reports recent pattern of constipation with last bowel movement 2 days ago -Monitor BMs over the course of hospitalization 04/06 - add colace to her regimen to help with less hard BM (5) HTN (hypertension) 04/05 -Continue patient's home medications -Monitor BP's (6) HLD (hyperlipidemia) 04/05 -Continue home dose of atorvastatin Discharge / Aftercare Planning Primary Care Physician: Name: Dr Alejandra Visit Code E&M Code: 93517 Therapy Code: 23932 >17min spent in supportive dynamic therapy, see Subjective above Inventory Assets Strengths: Love of her family, 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 Needs: To take medications as prescribed Risk Factors Assessment : Yes /single/: Yes Higher / Fall in social status: No Health problems: Yes Mental Health Diagnoses: Yes Substance use disorders: Yes Previous attempt: No Family history of suicide: Yes Previous psychiatric stay: Yes Hopelessness: No Smoker: No Protective Factors Assessment : No Responsible for young children: No Employed: No Stable relationships: Yes Supportive family: Yes Data Vital Signs Last 24 Hrs: Date Time Temp Pulse Resp B/P (MAP) Pulse Ox O2 Delivery O2 Flow Rate FiO2 04/07/17 06:06 36.4 60 16 135/79 59 133/72 04/06/17 21:01 70 131/72 Meds Administered Last 24 Hrs: Meds Administered (Past 24Hrs) Medications (Trade) Dose Ordered Sig/Ashlee Route Start Time Stop Time Status Last Admin Dose Admin Sertraline HCl (Zoloft Tab) 150 mg QAM PO 04/06/17 09:00 05/06/17 08:59 04/06/17 09:21 150 MG Acetaminophen (Tylenol Tab) 1,000 mg Q8H PO 04/06/17 15:30 05/04/17 15:29 04/07/17 00:10 1,000 MG Docusate Sodium (coLACE CAP) 100 mg BID PO 04/06/17 22:00 05/06/17 21:59 04/06/17 20:55 100 MG Problem Qualifiers (1) COPD (chronic obstructive pulmonary disease): COPD type: unspecified COPD Qualified Codes: J44.9 - Chronic obstructive pulmonary disease, unspecified
[2017-04-07] MEDS: ATORVASTATIN 40 MG TAB PO SCH (09:51)
[2017-04-07] MEDS: ASPIRIN 81 MG ECTAB PO SCH (09:51)
[2017-04-07] MEDS: DOCUSATE SODIUM 100 MG CAP PO SCH ×2 (09:51→21:08)
[2017-04-07] MEDS: CLOPIDOGREL BISULFATE 75 MG TAB PO SCH (09:52)
[2017-04-07] MEDS: GABAPENTIN 300 MG CAP PO SCH ×3 (09:52→21:04)
[2017-04-07] MEDS: AMLODIPINE BESYLATE 5 MG TAB PO SCH (09:52)
[2017-04-07] MEDS: MULTIVITAMIN TAB PO SCH (09:52)
[2017-04-07] MEDS: OMEGA-3 (PURIFIED FISH OIL) 1 GM CAP PO SCH (09:52)
[2017-04-07] MEDS: SERTRALINE HCL 50 MG TAB PO SCH (09:53)
[2017-04-07] MEDS: LISINOPRIL 40 MG TAB PO SCH (09:54)
[2017-04-07] MEDS: ACETAMINOPHEN 325 MG TAB PO SCH ×3 (12:43→21:08)
[2017-04-08] MEDS: hydrOXYzine HCL 25 MG TAB PO PRN (00:03)
[2017-04-08] MEDS: ACETAMINOPHEN 325 MG TAB PO SCH ×2 (06:50→12:11)
[2017-04-08 07:06] VITALS: BP_SYST 124; BP_SYST 133; BP_DIAS 66; BP_DIAS 67; PULSE 59; PULSE 61; TEMP 36.7
[2017-04-08 07:09] VITALS: O2SAT 98
[2017-04-08] MEDS: ATORVASTATIN 40 MG TAB PO SCH (08:35)
[2017-04-08] MEDS: GABAPENTIN 300 MG CAP PO SCH ×2 (08:35→13:49)
[2017-04-08] MEDS: MULTIVITAMIN TAB PO SCH (08:35)
[2017-04-08] MEDS: DOCUSATE SODIUM 100 MG CAP PO SCH (08:35)
[2017-04-08] MEDS: ASPIRIN 81 MG ECTAB PO SCH (08:35)
[2017-04-08] MEDS: UMECLIDINIUM VILANTEROL INH SCH (08:35)
[2017-04-08] MEDS: OMEGA-3 (PURIFIED FISH OIL) 1 GM CAP PO SCH (08:36)
[2017-04-08] MEDS: CLOPIDOGREL BISULFATE 75 MG TAB PO SCH (08:36)
[2017-04-08] MEDS: AMLODIPINE BESYLATE 5 MG TAB PO SCH (08:36)
[2017-04-08] MEDS: LISINOPRIL 40 MG TAB PO SCH (08:37)
[2017-04-08] MEDS: SERTRALINE HCL 50 MG TAB PO SCH (08:37)
[2017-04-08] MEDS ORDERED: SERT-234 PO (10:07)
[2017-04-08] MEDS ORDERED: CLC100 PO (10:07)
--- NOTE | 2017-04-08 10:37 | Discharge Instructions ---
Discharge Information Report Includes Report will include the: Discharge Instructions & Summary Admission Admission Date / Time: Apr 04, 2017 at 13:15 Reason for Admission: Major Depressive Disorder Recurrent Severe Discharge Discharge Diagnosis / Problem: Depression, benzodiazepine abuse Condition at Discharge: Fair Discharge Goals Goal(s): Decrease discomfort, Improve disease control, Prevent Disease Progression Activity Recommendations Activity Limitations: resume your previous activity . Instructions / Follow-Up Instructions / Follow-Up . SPECIAL CARE INSTRUCTIONS: 1. Follow through with your scheduled aftercare appointments. If unable to keep an appointment, please call to reschedule. 2. Take your medication only as prescribed. Medication should not be changed or stopped without the approval of your doctor. In the event of worsening symptoms or concerns about side effects, contact your doctor immediately. 3. Utilize new healthy coping skills, anger management skills, and stress management skills learned during your hospitalization. Journal feelings and process them with a support person. Identify stressors or situations that may result in relapse, deterioration or inappropriate behaviors and develop a plan to deal with those issues. 4. If your coping skills are ineffective and you are in crisis, contact your outpatient providers for direction. If unable to reach your providers, please call the CAN HELP LINE AT or go to the closest Emergency Room. 5. Avoid alcohol and un-prescribed drugs. 6. You have been provided with the Mental Health Advance Directives Pamphlet for your review. AFTERCARE APPOINTMENTS: * Please call your insurance company prior to your scheduled appointment to confirm your aftercare providers are covered. Take your insurance information to your appointments. . Discharge / Aftercare Planning Primary Care Physician: Name: Dr Alejandra . Follow-Up Care Plan for Follow-Up Care: The patient is being referred to [facility] for psychiatric follow-up Current Hospital Diet Patient's current hospital diet: Regular Diet Discharge Diet Recommended Diet: Regular Diet Procedures Procedures Performed: No Pending Studies Pending Studies at Discharge: No Medical Emergencies . Who to Call and When: Medical Emergencies: For questions or emergencies related to your hospital stay, please contact the Inpatient Behavioral Health Unit at [phone]. A agile developer is on-call 01/04 for the Behavioral Health Unit for emergencies At any time you feel your situation is an emergency, you may also call 911 immediately. . Non-Emergent Contact Non-Emergency issues call your: Primary Care Provider, Psychiatrist Past History Medical & Surgical History: (1) COPD (chronic obstructive pulmonary disease) (2) Crohn's disease (3) HLD (hyperlipidemia) (4) History of CVA (cerebrovascular accident) Advance Directives Existing Advance Directive: No Do You Have an Existing Mental: No Existing Living Will: Yes Existing Power of Subcontract Administrator: Yes The Person Making Decisions: Sheldon Liu Advance Directives Info Given: To Pt/S.O. Advance Directives Reason: Declines as Mental Health Visit. Discharge Summary Admission HPI Per the Admitting provider: Kyara Liu is a 76-year-old woman who is known to our service from one previous hospitalization here 10 years ago for depression. At that time her had and her grandson had committed suicide. She says that she has been on Zoloft 100 mg for many years and then felt that it been helping. She does not currently have any psychiatric prescriber's. She gives a retrospective on her depression, saying that after her and her grandson , she resorted to alcohol. She admits that she was abusing vodka at a high level and stopped after her hospitalization. At some point after that Dr. Alejandra gave her Restoril and Ativan which she took when necessary but admits she began abusing that as well. One year ago, she sold her home and moved to [facility] at the urging of her 3 sons. She thought that she would like it there because she had friends there, however she does not and wishes she were back in her own home. Her depression is worsening and on the day of admission to the medical floor, says that she was suicidal and so took what was remaining of her benzodiazepines in a suicide attempt. She said that she had stopped using the benzodiazepines about 3 weeks previous, saying she knew she couldn't use the pills anymore. She is uncertain how many she took or what happened to the bottle. After taking the Ativan, apparently she was found by a maintenance manager for [facility], obtunded and unable to answer the door. She was brought in by ambulance. Today, the patient ambulates to the interview room with a walker and continuous oxygen. She is somewhat frail in appearance. She continues to report severe depression but says the suicidal thoughts are "better". She reports that her sleep had been good when she was abusing benzodiazepines, she would run out of her prescriptions early and then would use Benadryl. She says that she cannot sleep without medications. Her appetite is been "not so hot" and her weight has fluctuated by 10 pounds over an unspecified period of time. Her anxiety is "horrible" and says that she gets "all worked up". During these times she experiences butterflies in her stomach, clenching teeth and muscles, and describes a "good feeling inside". She denies any specific triggers to her anxiety. She says that she has experienced some hallucinatory experiences. There were times when sitting in her living room that she felt that she was seeing a movie play out through the lights on her wall. These usually occurred when she was abusing the benzodiazepines. She describes any clear symptoms of OCD although does describe a need for order in her environment. She denies any self-injurious behaviors. She denies any symptoms that would be congruent with a bipolar illness. Hospital Course (1) Major depressive disorder, recurrent severe without psychotic features 04/05 - Increase Zoloft to 150 mg daily - Every 15 minute checks for safety -Encourage participation in group and individual counseling -Family meeting -The patient will need psychiatric aftercare -Coordinate with Katherine Zavala - Patient should have her medications secured post discharge 04/06 - continue as above - do not prefer vistaril for sleep but she did not need it overnight. Will keep it as prn, if she needs ongoing sleep aid during her stay will consider change to remeron low dose (reluctant to add today while we watch the impact of zoloft increase with goal not to add addition 5HT med just yet, and it may not be needed) - to mitigate risks for safety will work on increasing tylenol to 1000mg tid (avoid ibuprofen as she was taking up to 600-800mg bid to tid at home due to risks to stomach and while on plavix) and recommend physical activity to include stretches that she knows AND paced movement throughout the unit; further work on social contacts by patient asking her son to take her to her prior [place]ism in [place] on Sundays04/07/17 - continue plan as above, but redistribute tylenol to scheduled 650mg qid while awake, and behavioral measures from nursing that helped, she would benefit from specific question directed at Dr Alejandra about options for pain other than ibuprofen as tylenol is not fully effective at this time, furthermore recommend family meeting prior to discharge wtih son Landen with specific focus on patient's challenge at being interdependent (2) Anxiety disorder, unspecified See depression as above (3) COPD (chronic obstructive pulmonary disease) 04/05 -Continue O2 by nasal cannula 2 L continuous -Will require a medically necessary private room or cohorting (4) Crohn's disease 04/05 -Patient reports recent pattern of constipation with last bowel movement 2 days ago -Monitor BMs over the course of hospitalization 04/06 - add colace to her regimen to help with less hard BM (5) HTN (hypertension) 04/05 -Continue patient's home medications -Monitor BP's (6) HLD (hyperlipidemia) 04/05 -Continue home dose of atorvastatin Risk Factors Assessment : Yes /single/: Yes Higher / Fall in social status: No Health problems: Yes Mental Health Diagnoses: Yes Substance use disorders: Yes Previous attempt: No Family history of suicide: Yes Previous psychiatric stay: Yes Hopelessness: No Smoker: No Protective Factors Assessment : No Responsible for young children: No Employed: No Stable relationships: Yes Supportive family: Yes Day of Discharge Assessment COURSE OF HOSPITALIZATION: The patient was on our unit for 4 days. Zoloft was increased to 150 mg daily. She was initially admitted to the medical floor after having been found by maintenance people in her apartment complex, obtunded. She later admitted that she overdosed on benzodiazepines in a suicide attempt. She says that she recognizes now that she has an "addictive personality" having become dependent on alcohol after her and more recently abusing the benzodiazepines provided by her PCP. She had attempted to discontinue the benzodiazepines several weeks prior to her overdose. During her stay, she remains somewhat restricted in her affect but said that she would not attempt suicide again as she would not do that to her sons. Her sons were involved in a family meeting, were supportive and supported her returning to her independent apartment at [facility] she denied any further thoughts of suicide throughout her hospital stay. DAY OF DISCHARGE ASSESSMENT: The patient felt a family meeting with her 3 sons this morning went well. She promised them that she would not make any more attempts on her life and remains committed to living. She rates her mood a 9 out of 10 and denies suicidal thinking. Today she is casually and appropriately dressed and groomed, wearing oxygen by nasal cannula. She is seated at the bedside in no acute distress. Affect remains restricted. Eye contact is good. Speech is of normal rate volume and tone. Thoughts are organized, goal-directed, and without evidence of thought disorder. Recent and remote memory are intact with the exception of the events following her overdose. Intelligence is estimated to be average. Insight and judgment are improved over admission. Laboratory Performed while on the medical floor Total Time Total Time Spent (min): Greater than 30 minutes Total Time Included: examination of the patient, discharge planning, medication reconciliation, communication with other providers Tobacco Cessation at Discharge Smoking Status: Former Smoker FDA approved Prescription: non-smoker Problem Qualifiers (1) COPD (chronic obstructive pulmonary disease): COPD type: unspecified COPD Qualified Codes: J44.9 - Chronic obstructive pulmonary disease, unspecified
[2017-04-08] MEDS ORDERED: ATR25 PO (13:40)
[2017-05-08] MEDS ORDERED: METR-163 PO (12:51)
[2017-05-08] MEDS ORDERED: CEFD300C2 PO ×2 (12:51→12:52)
[2017-05-08] MEDS ORDERED: LCTX PO (12:52)
== END 2017-04-08 15:20 | disposition home or self-care (01) | DRG 885 ==
LOC: C.MHU 13:15 → UNDOADMIN 13:54
PROVIDERS: ADMIT Psychiatry & Neurology Psychiatry; ATTEND Psychiatry & Neurology Psychiatry
DX: F33.2 Major depressive disorder, recurrent severe without psychotic features (principal); K50.90 Crohn's disease, unspecified, without complications; F41.9 Anxiety disorder, unspecified; I10 Essential (primary) hypertension; E78.5 Hyperlipidemia, unspecified; M54.5 Low back pain; J44.9 Chronic obstructive pulmonary disease, unspecified; Z79.82 Long term (current) use of aspirin; Z79.899 Other long term (current) drug therapy; Z81.8 Family history of other mental and behavioral disorders; Z91.5 Personal history of self-harm

== ENCOUNTER 2017-05-04 08:55 | Inpatient (IN) | payer OTHER ==
[~2017-05-04] VITALS: Ht 162.6 cm; Wt 63.0 kg
[~2017-05-04 08:55] MED LIST changes: +ATR25 PO; +CLC100 PO; -IBUP-1050 PO; -LORA-741 PO
[2017-05-04] MEDS ORDERED: SODIUM CHLORIDE 0.9% 250ML 250 ML IV STA (09:25)
[2017-05-04] MEDS ORDERED: MoRPHine SULFATE 2 MG/ML CARP IV STA (09:25)
[2017-05-04] MEDS ORDERED: SODIUM CHLORIDE 0.9% 1000ML 1,000 ML IV STA (09:25)
[2017-05-04] MEDS ORDERED: ONDANSETRON INJ 2 MG/ML 2 ML VIAL IV STA (09:25)
[2017-05-04] MEDS ORDERED: OPTIRAY 320 IV PRN (09:30)
--- NOTE | 2017-05-04 09:41 | EMERGENCY ROOM VISIT NOTE ---
History Report prepared by Shae: Zac Riley Under the Supervision of: Dr. More Forbes M.D. First contact with patient: 09:11 Chief Complaint: ABDOMINAL PAIN Stated Complaint: ABD PAIN Nursing Triage Summary: patient arrived to ER via BLS. patient states yesterday she had cymro food for lunch and c/o nausea and diarrhea since. patient states she fell yesterday when attempting to make it to the bathroom. denies hitting her head. History of Present Illness The patient is a 76 year old female who presents to the Emergency Room with complaints of constant, right lower quadrant abdominal pain beginning yesterday afternoon. The patient states that she ate lunch at a [place] restaurant yesterday, and her symptoms began an hour afterwards. She reports that she also has a history of Crohn's Disease. The patient notes that she believed this may have been causing her symptoms. She states that since lunch, she has experienced intermittent hematochezia, intermittent diarrhea, constant nausea, and a decreased appetite. The patient reports that her abdominal pain is slightly alleviated after she uses the restroom. She notes that she fell last night on her way to the bathroom, but she denies hitting her head. The patient states that she recently saw her psychiatrist, and they altered her medications. She denies fevers and vomiting. Source of History: patient Onset: yesterday afternoon Position: abdomen (RLQ) Timing: constant Modifying Factors (Relieving): defecation Associated Symptoms: + nausea, + hematochezia, + diarrhea, No fevers, No vomiting Note: Associated symptoms: decreased appetite Denies: hitting her head Review of Systems See HPI for pertinent positives & negatives. A total of 10 systems reviewed and were otherwise negative. Past Medical & Surgical Medical Problems: (1) Anxiety disorder, unspecified (2) COPD (chronic obstructive pulmonary disease) (3) COPD (chronic obstructive pulmonary disease) (4) Crohn's disease (5) Depression (6) Ectopic (7) History of CVA (cerebrovascular accident) (8) HLD (hyperlipidemia) (9) HTN (hypertension) (10) Major depressive disorder, recurrent severe without psychotic features (11) Osteoporosis (12) Right sided weakness Surgical Problems: (1) H/O colonoscopy (2) History of cataract surgery (3) History of esophagogastroduodenoscopy (EGD) (4) S/P laser trabeculoplasty of eye Family History FH: cancer FH: gallbladder disease FH: lung disease Kidney stones Social History Smoking Status: Former Smoker Drug Use: none Marital Status: Housing Status: assisted living Occupation Status: retired, other Current/Historical Medications Scheduled Amlodipine (Norvasc), 10 MG PO DAILY Aspirin (Aspirin EC Low Dose), 81 MG PO QAM Atenolol (Tenormin), 75 MG PO BID Atorvastatin (Atorvastatin Calcium), 40 MG PO QAM Clopidogrel Bisulfate (Clopidogrel), 75 MG PO QAM Docusate Sodium (Docusate Sodium), 100 MG PO BID Fish Oil (Linden-3), 1 CAP PO DAILY Fluticasone Furoate (Inhalatio (Arnuity Ellipta), 1 PUFF PO DAILY Gabapentin (Gabapentin), 300 MG PO TID Home O2 Therapy (Oxygen), 2.5 LITERS NA CONTINOUS Lisinopril (Zestril), 40 MG PO DAILY Multivitamin (Multivitamin), 1 TAB PO DAILY Sertraline (Zoloft), 150 MG PO DAILY Umeclidinium-Vilanterol (Anoro Ellipta 62.5-25 Mcg/INH), 1 PUFF PO DAILY Scheduled PRN Albuterol Sulfate (Proair Respiclick), 2 PUFF INH Q4 PRN for SOB/Wheezing Hydroxyzine HCl (Hydroxyzine HCl), 50 MG PO HSZ PRN for Insomnia Levalbuterol (Levalbuterol HCl), 1.25 MG NEB Q8 PRN for Wheezing Loperamide Hcl (Imodium), 2 MG PO DAILY PRN for Diarrhea Allergies Coded Allergies: No Known Allergies (Unverified , 03/29/17) Physical Exam Vital Signs Date Time Temp Pulse Resp B/P (MAP) Pulse Ox O2 Delivery O2 Flow Rate FiO2 05/04/17 13:50 37.0 87 18 144/75 98 05/04/17 13:46 87 18 144/75 98 Nasal Cannula 2.0 05/04/17 12:48 99 Nasal Cannula 2.5 05/04/17 10:36 78 20 148/71 99 Nasal Cannula 2.5 05/04/17 10:35 79 17 05/04/17 10:34 148/71 05/04/17 10:30 75 27 99 Nasal Cannula 2.0 05/04/17 10:25 74 23 96 05/04/17 10:20 74 24 05/04/17 10:15 75 26 100 05/04/17 10:10 75 28 100 05/04/17 10:05 75 28 99 05/04/17 10:00 73 27 100 05/04/17 09:59 74 05/04/17 09:55 76 22 99 05/04/17 09:50 78 25 05/04/17 09:45 75 30 100 05/04/17 09:40 74 30 99 05/04/17 09:03 160/80 05/04/17 08:59 37.0 91 22 160/80 93 Room Air Physical Exam Vital signs reviewed. General: Elderly-appearing 76 year old female, in no significant distress. HEENT: No scleral icterus, PERRLA, neck supple. Atraumatic. Cardiovascular: Regular rate and rhythm, no extra sounds. Pulmonary: Clear to auscultation bilaterally, normal work of breathing. Abdomen: Soft, nondistended, positive bowel sounds. Tenderness to palpation over the lower abdomen. No rebound, some guarding, no timpani. Musculoskeletal: Atraumatic, no peripheral edema. Neurologic: Patient awake alert and oriented x 3, full strength in all 4 extremities. Cranial nerves 2 through 12 grossly intact. Skin: Warm, dry, no rash Medical Decision & Procedures ER Provider Diagnostic Interpretation: CT results as stated below per my review and radiologist interpretation: ABD/PELVIS IV CONTRAST ONLY CLINICAL HISTORY: 76 years-old Female presenting with Lower abd pain, Crohns Dx, diarrhea. TECHNIQUE: Multidetector CT of the abdomen and pelvis was performed after the administration of intravenous contrast. IV contrast: 94 mL of Optiray 320. A dose lowering technique was used consistent with the principles of ALARA (as low as reasonably achievable). COMPARISON: 05/11/2010. CT DOSE (mGy.cm): The estimated cumulative dose is 260.62 mGy.cm. FINDINGS: Platform Beater topogram: Surgical clips project over the right chest, possibly located within the breast. Lung bases: Lung bases clear. Mitral annular calcification noted. Normal heart size. No pericardial or pleural effusion. Liver: Normal morphology. Prominent bilobed cystic lesion in the lateral left hepatic lobe measuring 4 cm, slightly increased in size since prior exam. Multiple additional well-defined hypodensities scattered throughout the liver some of which were present previously, most consistent with hepatic cysts or hamartomas. Patent hepatic vasculature. Biliary: Mild prominence of the extrahepatic bile duct. No intrahepatic biliary ductal dilatation. Normal gallbladder. Pancreas: Dilatation of the pancreatic duct increased from prior exam. Pancreas divisum again noted. Cystic region in the uncinate may represent a focal lesion although this is not well evaluated. Additional possible cystic mass may be present in the pancreatic tail (series 3 image 84). No focal mass at the major and minor papilla. Spleen: Normal. Adrenal glands: Normal. Kidneys and ureters: No nephrolithiasis. Multiple well-defined hypodensities noted in both kidneys, many too small to characterize likely simple cysts. Apparent minimally elevated density of the largest lesion in the left kidney measures 1.8 cm and has a density slightly above that of simple fluid. No enhancing elements. This may represent a hemorrhagic or proteinaceous cyst. No hydronephrosis. Ureters normal. Bladder: Normal. Pelvic organs: Uterus and ovaries normal. Bowel: Limited diverticulosis of the sigmoid colon. Apparent wall thickening of the descending colon extending from the splenic flexure to the junction with the sigmoid colon. No significant pericolonic fat stranding is evident. Nondilated appendiceal stump. No bowel obstruction. Epiphrenic diverticulum versus small paraesophageal hernia noted. Minimal infiltration surrounding the anal verge may be present (series 3 image 387), although the evaluation was not tailored for dedicated perianal fistula assessment. Peritoneal cavity: No free fluid or intraperitoneal gas. Vasculature: Atherosclerosis of the abdominal aorta with mild ectasia of the infrarenal portion measuring up to 2.6 cm in maximal transverse dimension. IVC patent. Lymph nodes: No enlarged lymph nodes in the abdomen or pelvis. Abdominal wall: Small fat-containing umbilical hernia. Musculoskeletal: Degenerative changes of the spine. Degenerative changes of the symphysis pubis. IMPRESSION: 1. Apparent wall thickening of the descending colon. Although this could be due to underdistention, this is suspicious for pathologic wall thickening which could be consistent with active inflammation of the colon in the setting of inflammatory bowel disease. No evidence of penetrating or stricturing disease. 2. Suggestion of infiltration in the perianal region. Correlate clinically for possible perianal fistula. Notably, the examination was not tailored for a perianal fistula assessment. 3. Mild prominence of the extrahepatic bile duct and interval increase in pancreatic ductal dilatation. No walter mass at the pancreatic head. Evidence of pancreas divisum. This could be further evaluated with MRCP if clinically indicated, however, a benign stricture is the favored etiology. 4. Apparent cystic lesions in the pancreas are incompletely evaluated. These could represent focal dilatation of the pancreatic duct, however, these may represent side branch intraductal papillary mucinous neoplasms or mucinous cysts. If there is clinical concern, further evaluation with dedicated contrast enhanced pancreas MR could be obtained. Electronically signed by: Loki Suero M.D. 05/04/2017 11:17 AM Dictated Date/Time: 05/04/2017 11:04 AM Laboratory Results 05/04/17 09:05 Red Blood Count 4.32, Mean Corpuscular Volume 91.9, Mean Corpuscular Hemoglobin 27.8, Mean Corpuscular Hemoglobin Concent 30.2, Mean Platelet Volume 10.3, Neutrophils (%) (Auto) 87.2, Lymphocytes (%) (Auto) 4.1, Monocytes (%) (Auto) 8.2, Eosinophils (%) (Auto) 0.1, Basophils (%) (Auto) 0.1, Neutrophils # (Auto) 19.26, Lymphocytes # (Auto) 0.91, Monocytes # (Auto) 1.81, Eosinophils # (Auto) 0.02, Basophils # (Auto) 0.02 05/04/17 09:05 Test 05/04/17 09:05 White Blood Count 22.08 K/uL (4.8-10.8) Red Blood Count 4.32 M/uL (4.2-5.4) Hemoglobin 12.0 g/dL (12.0-16.0) Hematocrit 39.7 % (37-47) Mean Corpuscular Volume 91.9 fL (80-100) Mean Corpuscular Hemoglobin 27.8 pg (25-34) Mean Corpuscular Hemoglobin Concent 30.2 g/dl (32-36) Platelet Count 263 K/uL (130-400) Mean Platelet Volume 10.3 fL (7.4-10.4) Neutrophils (%) (Auto) 87.2 % Lymphocytes (%) (Auto) 4.1 % Monocytes (%) (Auto) 8.2 % Eosinophils (%) (Auto) 0.1 % Basophils (%) (Auto) 0.1 % Neutrophils # (Auto) 19.26 K/uL (1.4-6.5) Lymphocytes # (Auto) 0.91 K/uL (1.2-3.4) Monocytes # (Auto) 1.81 K/uL (0.11-0.59) Eosinophils # (Auto) 0.02 K/uL (0-0.5) Basophils # (Auto) 0.02 K/uL (0-0.2) RDW Standard Deviation 44.5 fL (36.4-46.3) RDW Coefficient of Variation 13.2 % (11.5-14.5) Immature Granulocyte % (Auto) 0.3 % Immature Granulocyte # (Auto) 0.06 K/uL (0.00-0.02) Anion Gap 8.0 mmol/L (3-11) Est Creatinine Clear Calc Drug Dose 48.3 ml/min Estimated GFR () 78.3 Estimated GFR (Non- 67.5 BUN/Creatinine Ratio 24.0 (10-20) Calcium Level 9.2 mg/dl (8.5-10.1) Total Bilirubin 0.2 mg/dl (0.2-1) Direct Bilirubin < 0.1 mg/dl (0-0.2) Aspartate Amino Transf (AST/SGOT) 20 U/L (15-37) Alanine Aminotransferase (ALT/SGPT) 24 U/L (12-78) Alkaline Phosphatase 117 U/L (45-117) Total Protein 7.4 gm/dl (6.4-8.2) Albumin 4.0 gm/dl (3.4-5.0) Amylase Level 54 U/L (25-115) Lipase 82 U/L (73-393) Laboratory results per my review. Medications Administered Medications (Trade) Dose Ordered Sig/Ashlee Route Start Time Stop Time Status Last Admin Dose Admin Sodium Chloride 250 ml @ 999 mls/hr Q16M STAT IV 05/04/17 09:25 05/04/17 09:40 DC 05/04/17 09:37 999 MLS/HR Sodium Chloride 1,000 ml @ 125 mls/hr Q8H STAT IV 05/04/17 09:25 05/04/17 17:24 05/04/17 09:37 125 MLS/HR Morphine Sulfate (MoRPHine SULFATE INJ) 2 mg NOW STAT IV 05/04/17 09:25 05/04/17 09:27 DC 05/04/17 09:38 2 MG Ondansetron HCl (Zofran Inj) 4 mg NOW STAT IV 05/04/17 09:25 05/04/17 09:28 DC 05/04/17 09:38 4 MG ED Course 920: Past medical records reviewed. The patient was evaluated in room A09B. A complete history and physical examination was performed. 0925: Ordered Zofran Inj 4mg IV, Morphine Sulfate 2mg IV, Sodium Chloride 1000 ml @ 125 mls/hr IV, Sodium Chloride 250 ml @ 999 mls/hr IV 1129: Upon reevaluation, the patient is resting comfortably. I discussed laboratory and radiographic results with her. She verbalized agreement of the treatment plan. 1138: Ordered Metronidazole 500mg IV, Ciprofloxacin/Dextrose 400mg IV 1203: I discussed the patient's case with Andrea Hare [facility] [place]. The patient will be evaluated for further treatment and care. Medical Decision Differential diagnosis: Etiologies such as appendicitis, diverticulitis, PUD, biliary pathology, UTI, pancreatitis, obstruction, mesenteric ischemia, aortic pathology, infections, inflammatory bowel disease, renal colic, Crohn's flare as well as others were entertained. This patient was evaluated and appeared to be in no significant distress. IV access was obtained and laboratory work was drawn. The patient was placed on the residential monitor and found to be in a normal sinus rhythm. Patient's laboratory work reveals a leukocytosis. Physical examination reveals lower abdominal tenderness. She did require IV morphine and Zofran for her symptoms. CT scan was ordered and reveals colonic wall thickening with a possible perianal fistula. Patient was given IV Cipro and Flagyl. Case was discussed with the hospitalist service who will evaluate the patient for further management. Patient is aware of the plan and agrees. Consults Time Called: 1159 Consulting Physician: Andrea Hare [facility] [place] Returned Call: 1203 I discussed the patient's case with Andrea Hare. The patient will be evaluated for further treatment and care. Impression Primary Impression: Acute colitis Scribe Attestation The scribe's documentation has been prepared under my direction and personally reviewed by me in its entirety. I confirm that the note above accurately reflects all work, treatment, procedures, and medical decision making performed by me. Departure Information Dispostion Being Evaluated By Hospitalist Referrals Jose Juan Alejandra III, M.D. (PCP) Patient Instructions [facility]
[2017-05-04 10:21] LABS: BASO % 0.1 %; BASO ABS # 0.02 K/uL (0-0.2); COMPLETE YES; EOS % 0.1 %; HEMATOCRIT 39.7 % (37-47); IG% 0.3 %; LYMPH % 4.1 %; LYMPH ABS # 0.91 K/uL (1.2-3.4); MEAN CELL VOLUME 91.9 fL (80-100); MEAN CORPUSCULAR HEMOGLOBIN 27.8 pg (25-34); MEAN CORPUSCULAR HGB CONC 30.2 g/dl (32-36); MEAN PLATELET VOLUME 10.3 fL (7.4-10.4); MONO % 8.2 %; NEUT % 87.2 %; PLATELET COUNT 263 K/uL (130-400); RED BLOOD COUNT 4.32 M/uL (4.2-5.4); WHITE BLOOD COUNT 22.08 K/uL (4.8-10.8)
[2017-05-04 10:28] LABS: ALT/SGPT 24 U/L (12-78); BLOOD UREA NITROGEN 20 mg/dl (7-18); CALCIUM 9.2 mg/dl (8.5-10.1); CARBON DIOXIDE 28 mmol/L (21-32); CHLORIDE 106 mmol/L (98-107); CREATININE 0.83 mg/dl (0.60-1.20); GLUCOSE 155 mg/dl (70-99); POTASSIUM 3.6 mmol/L (3.5-5.1); SODIUM 142 mmol/L (136-145)
[2017-05-04 10:31] LABS: ALKALINE PHOSPHATASE 117 U/L (45-117); AST/SGOT 20 U/L (15-37)
--- NOTE | 2017-05-04 11:19 | DIAGNOSTIC IMAGING REPORT ---
ABD/PELVIS IV CONTRAST ONLY CLINICAL HISTORY: 76 years-old Female presenting with Lower abd pain, Crohns Dx, diarrhea. TECHNIQUE: Multidetector CT of the abdomen and pelvis was performed after the administration of intravenous contrast. IV contrast: 94 mL of Optiray 320. A dose lowering technique was used consistent with the principles of ALARA (as low as reasonably achievable). COMPARISON: 05/11/2010. CT DOSE (mGy.cm): The estimated cumulative dose is 260.62 mGy.cm. FINDINGS: Grinder Setup Operator topogram: Surgical clips project over the right chest, possibly located within the breast. Lung bases: Lung bases clear. Mitral annular calcification noted. Normal heart size. No pericardial or pleural effusion. Liver: Normal morphology. Prominent bilobed cystic lesion in the lateral left hepatic lobe measuring 4 cm, slightly increased in size since prior exam. Multiple additional well-defined hypodensities scattered throughout the liver some of which were present previously, most consistent with hepatic cysts or hamartomas. Patent hepatic vasculature. Biliary: Mild prominence of the extrahepatic bile duct. No intrahepatic biliary ductal dilatation. Normal gallbladder. Pancreas: Dilatation of the pancreatic duct increased from prior exam. Pancreas divisum again noted. Cystic region in the uncinate may represent a focal lesion although this is not well evaluated. Additional possible cystic mass may be present in the pancreatic tail (series 3 image 84). No focal mass at the major and minor papilla. Spleen: Normal. Adrenal glands: Normal. Kidneys and ureters: No nephrolithiasis. Multiple well-defined hypodensities noted in both kidneys, many too small to characterize likely simple cysts. Apparent minimally elevated density of the largest lesion in the left kidney measures 1.8 cm and has a density slightly above that of simple fluid. No enhancing elements. This may represent a hemorrhagic or proteinaceous cyst. No hydronephrosis. Ureters normal. Bladder: Normal. Pelvic organs: Uterus and ovaries normal. Bowel: Limited diverticulosis of the sigmoid colon. Apparent wall thickening of the descending colon extending from the splenic flexure to the junction with the sigmoid colon. No significant pericolonic fat stranding is evident. Nondilated appendiceal stump. No bowel obstruction. Epiphrenic diverticulum versus small paraesophageal hernia noted. Minimal infiltration surrounding the anal verge may be present (series 3 image 387), although the evaluation was not tailored for dedicated perianal fistula assessment. Peritoneal cavity: No free fluid or intraperitoneal gas. Vasculature: Atherosclerosis of the abdominal aorta with mild ectasia of the infrarenal portion measuring up to 2.6 cm in maximal transverse dimension. IVC patent. Lymph nodes: No enlarged lymph nodes in the abdomen or pelvis. Abdominal wall: Small fat-containing umbilical hernia. Musculoskeletal: Degenerative changes of the spine. Degenerative changes of the symphysis pubis. IMPRESSION: 1. Apparent wall thickening of the descending colon. Although this could be due to underdistention, this is suspicious for pathologic wall thickening which could be consistent with active inflammation of the colon in the setting of inflammatory bowel disease. No evidence of penetrating or stricturing disease. 2. Suggestion of infiltration in the perianal region. Correlate clinically for possible perianal fistula. Notably, the examination was not tailored for a perianal fistula assessment. 3. Mild prominence of the extrahepatic bile duct and interval increase in pancreatic ductal dilatation. No walter mass at the pancreatic head. Evidence of pancreas divisum. This could be further evaluated with MRCP if clinically indicated, however, a benign stricture is the favored etiology. 4. Apparent cystic lesions in the pancreas are incompletely evaluated. These could represent focal dilatation of the pancreatic duct, however, these may represent side branch intraductal papillary mucinous neoplasms or mucinous cysts. If there is clinical concern, further evaluation with dedicated contrast enhanced pancreas MR could be obtained. Electronically signed by: Loki Suero M.D. 05/04/2017 11:17 AM Dictated Date/Time: 05/04/2017 11:04 AM
[2017-05-04] MEDS ORDERED: METRONIDAZOLE 500MG / 100ML NSS IV STA (11:38)
[2017-05-04] MEDS ORDERED: CIPROFLOXACIN 400MG / 200ML D5W IV STA (11:38)
[2017-05-04] MEDS ORDERED: ACETAMINOPHEN 325 MG TAB PO PRN (12:00)
[2017-05-04 12:48] VITALS: O2SAT 99; Ht 162.6 cm; Wt 63.0 kg
[2017-05-04 12:55] LABS: AMYLASE 54 U/L (25-115)
[2017-05-04] MEDS ORDERED: hydrOXYzine HCL 25 MG TAB PO PRN (13:45)
--- NOTE | 2017-05-04 13:47 | History and Physical ---
History & Physical Date & Time of Service: May 04, 2017 at 13:42 Chief Complaint: Abd Pain Primary Care Physician: Jose Juan Alejandra III, M.D. History of Present Illness This is a 76 year old F with History of Stroke without residual weakness, history of COPD, Crohn's disease who is not on maintenance medication for prevention of Crohn's flares, with diarrhea starting 1 day ago yesterday after eating at a restaurant with 2 episodes of diarrhea that was brown and watery with symptoms of lower abdominal pain. Patient denies fevers at home and is afebrile in the ED however WBC is 22,000. In the ED she was started on Ciprofloxacin 400 g IV and Flagyl [address] abdomen was performed with ED provider assessment treating for infectious process as there thickening of descending colon. However there are also multiple other findings on CT abdomen such as increase in pancreatic ductal dilatation and cystic lesions in the pancreas with radiological recommendation of MRI / MRCP for further evaluation. I discussed preliminary findings with patient and she reported some history of abdominal imaging in the past that was benign however these reports are not available on electronic medical records. Patient also reports code status to be DNR and this discussion took place withe presence of her son (contact number , ) Past Medical/Surgical History Medical Problems: (1) COPD (chronic obstructive pulmonary disease) Status: Chronic (2) COPD (chronic obstructive pulmonary disease) Status: Chronic (3) Crohn's disease Status: Chronic (4) Depression Status: Chronic (5) Ectopic Status: Chronic (6) HLD (hyperlipidemia) Status: Chronic (7) HTN (hypertension) Status: Chronic (8) Osteoporosis Status: Chronic Surgical Problems: (1) H/O colonoscopy Status: Chronic (2) History of cataract surgery Status: Chronic (3) History of esophagogastroduodenoscopy (EGD) Status: Chronic (4) S/P laser trabeculoplasty of eye Status: Chronic Family History FH: cancer FH: gallbladder disease FH: lung disease Kidney stones Social History Smoking Status: Former Smoker Drug Use: none Marital Status: Housing status: lives alone 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, other Immunizations History of Influenza Vaccine: Yes Influenza Vaccine Date: Jun 09, 2013 History of Tetanus Vaccine?: Yes Tetanus Immunization Date: Oct 09, 1989 History of Pneumococcal: Yes Pneumococcal Date: Oct 09, 1989 History of Hepatitis B Vaccine: Yes Hepatitis Immunization Date: Sep 10, 1994 Multi-Drug Resistant Organisms History of MDRO: No Allergies Coded Allergies: No Known Allergies (Unverified , 03/29/17) Home Medications Scheduled Amlodipine (Norvasc), 10 MG PO DAILY Aspirin (Aspirin EC Low Dose), 81 MG PO QAM Atenolol (Tenormin), 75 MG PO BID Atorvastatin (Atorvastatin Calcium), 40 MG PO QAM Clopidogrel Bisulfate (Clopidogrel), 75 MG PO QAM Docusate Sodium (Docusate Sodium), 100 MG PO BID Fish Oil ([place]-3), 1 CAP PO DAILY Fluticasone Furoate (Inhalatio (Arnuity Ellipta), 1 PUFF PO DAILY Gabapentin (Gabapentin), 300 MG PO TID Home O2 Therapy (Oxygen), 2.5 LITERS NA CONTINOUS Lisinopril (Zestril), 40 MG PO DAILY Multivitamin (Multivitamin), 1 TAB PO DAILY Sertraline (Zoloft), 150 MG PO DAILY Umeclidinium-Vilanterol (Anoro Ellipta 62.5-25 Mcg/INH), 1 PUFF PO DAILY Scheduled PRN Albuterol Sulfate (Proair Respiclick), 2 PUFF INH Q4 PRN for SOB/Wheezing Hydroxyzine HCl (Hydroxyzine HCl), 50 MG PO HSZ PRN for Insomnia Levalbuterol (Levalbuterol HCl), 1.25 MG NEB Q8 PRN for Wheezing Loperamide Hcl (Imodium), 2 MG PO DAILY PRN for Diarrhea Review of Systems Constitutional: No fever, No weakness, No fatigue Eyes: No discharge ENT: No sore throat Respiratory: No cough, No shortness of breath, No dyspnea on exertion, No dyspnea at rest Cardiovascular: No chest pain, No edema Abdomen: + pain, + diarrhea Genitourinary - Female: No dysuria Neurologic: No paralysis, No numbness/tingling Psychiatric: No substance abuse Hematologic / Lymphatic: No swollen lymph nodes Integumentary: No rash Physical Exam Vital Signs Date Time Temp Pulse Resp B/P (MAP) Pulse Ox O2 Delivery O2 Flow Rate FiO2 05/04/17 12:48 99 Nasal Cannula 2.5 05/04/17 10:36 78 20 148/71 99 Nasal Cannula 2.5 05/04/17 10:35 79 17 05/04/17 10:34 148/71 05/04/17 10:30 75 27 99 Nasal Cannula 2.0 05/04/17 10:25 74 23 96 05/04/17 10:20 74 24 05/04/17 10:15 75 26 100 05/04/17 10:10 75 28 100 05/04/17 10:05 75 28 99 05/04/17 10:00 73 27 100 05/04/17 09:59 74 05/04/17 09:55 76 22 99 05/04/17 09:50 78 25 05/04/17 09:45 75 30 100 05/04/17 09:40 74 30 99 05/04/17 09:03 160/80 05/04/17 08:59 37.0 91 22 160/80 93 Room Air General Appearance: no apparent distress Head: normocephalic, atraumatic Eyes: normal inspection, EOMI, sclerae normal ENT: normal ENT inspection, hearing grossly normal, pharynx normal Neck: supple, no JVD Respiratory/Chest: chest non-tender, lungs clear, normal breath sounds, no respiratory distress, no accessory muscle use Cardiovascular: regular rate, rhythm, no edema, no JVD, normal peripheral pulses Abdomen/GI: normal bowel sounds, soft, no pulsatile mass, + tenderness ( tenderness on lower abdomen, no guarding) Back: normal inspection, no CVA tenderness, no muscle spasm, normal range of motion Extremities/Musculoskelatal: normal inspection, no calf tenderness, normal capillary refill, no pedal edema, normal range of motion, non-tender Neurologic/Psych: no motor/sensory deficits, alert, normal mood/affect, oriented x 3 Skin: normal color, warm/dry Diagnostics Laboratory Results Results Past 24 Hours Test 05/04/17 09:05 Range/Units White Blood Count 22.08 4.8-10.8 K/uL Red Blood Count 4.32 4.2-5.4 M/uL Hemoglobin 12.0 12.0-16.0 g/dL Hematocrit 39.7 37-47 % Mean Corpuscular Volume 91.9 80-100 fL Mean Corpuscular Hemoglobin 27.8 25-34 pg Mean Corpuscular Hemoglobin Concent 30.2 32-36 g/dl Platelet Count 263 130-400 K/uL Mean Platelet Volume 10.3 7.4-10.4 fL Neutrophils (%) (Auto) 87.2 % Lymphocytes (%) (Auto) 4.1 % Monocytes (%) (Auto) 8.2 % Eosinophils (%) (Auto) 0.1 % Basophils (%) (Auto) 0.1 % Neutrophils # (Auto) 19.26 1.4-6.5 K/uL Lymphocytes # (Auto) 0.91 1.2-3.4 K/uL Monocytes # (Auto) 1.81 0.11-0.59 K/uL Eosinophils # (Auto) 0.02 0-0.5 K/uL Basophils # (Auto) 0.02 0-0.2 K/uL RDW Standard Deviation 44.5 36.4-46.3 fL RDW Coefficient of Variation 13.2 11.5-14.5 % Immature Granulocyte % (Auto) 0.3 % Immature Granulocyte # (Auto) 0.06 0.00-0.02 K/uL Sodium Level 142 136-145 mmol/L Potassium Level 3.6 3.5-5.1 mmol/L Chloride Level 106 98-107 mmol/L Carbon Dioxide Level 28 21-32 mmol/L Anion Gap 8.0 3-11 mmol/L Blood Urea Nitrogen 20 7-18 mg/dl Creatinine 0.83 0.60-1.20 mg/dl Est Creatinine Clear Calc Drug Dose 48.3 ml/min Estimated GFR () 78.3 Estimated GFR (Non- 67.5 BUN/Creatinine Ratio 24.0 10-20 Random Glucose 155 70-99 mg/dl Calcium Level 9.2 8.5-10.1 mg/dl Total Bilirubin 0.2 0.2-1 mg/dl Direct Bilirubin < 0.1 0-0.2 mg/dl Aspartate Amino Transf (AST/SGOT) 20 15-37 U/L Alanine Aminotransferase (ALT/SGPT) 24 12-78 U/L Alkaline Phosphatase 117 45-117 U/L Total Protein 7.4 6.4-8.2 gm/dl Albumin 4.0 3.4-5.0 gm/dl Amylase Level 54 25-115 U/L Lipase 82 73-393 U/L Microbiology Results 05/04/17 Blood Culture, Ordered Pending 05/04/17 Blood Culture, Ordered Pending Diagnostic Radiology ABD/PELVIS IV CONTRAST ONLY CLINICAL HISTORY: 76 years-old Female presenting with Lower abd pain, Crohns Dx, diarrhea. FINDINGS: [employer] topogram: Surgical clips project over the right chest, possibly located within the breast. Lung bases: Lung bases clear. Mitral annular calcification noted. Normal heart size. No pericardial or pleural effusion. Liver: Normal morphology. Prominent bilobed cystic lesion in the lateral left hepatic lobe measuring 4 cm, slightly increased in size since prior exam. Multiple additional well-defined hypodensities scattered throughout the liver some of which were present previously, most consistent with hepatic cysts or hamartomas. Patent hepatic vasculature. Biliary: Mild prominence of the extrahepatic bile duct. No intrahepatic biliary ductal dilatation. Normal gallbladder. Pancreas: Dilatation of the pancreatic duct increased from prior exam. Pancreas divisum again noted. Cystic region in the uncinate may represent a focal lesion although this is not well evaluated. Additional possible cystic mass may be present in the pancreatic tail (series 3 image [id number]). No focal mass at the major and minor papilla. Spleen: Normal. Adrenal glands: Normal. Kidneys and ureters: No nephrolithiasis. Multiple well-defined hypodensities noted in both kidneys, many too small to characterize likely simple cysts. Apparent minimally elevated density of the largest lesion in the left kidney measures 1.8 cm and has a density slightly above that of simple fluid. No enhancing elements. This may represent a hemorrhagic or proteinaceous cyst. No hydronephrosis. Ureters normal. Bladder: Normal. Pelvic organs: Uterus and ovaries normal. Bowel: Limited diverticulosis of the sigmoid colon. Apparent wall thickening of the descending colon extending from the splenic flexure to the junction with the sigmoid colon. No significant pericolonic fat stranding is evident. Nondilated appendiceal stump. No bowel obstruction. Epiphrenic diverticulum versus small paraesophageal hernia noted. Minimal infiltration surrounding the anal verge may be present (series 3 image [id number]), although the evaluation was not tailored for dedicated perianal fistula assessment. Peritoneal cavity: No free fluid or intraperitoneal gas. Vasculature: Atherosclerosis of the abdominal aorta with mild ectasia of the infrarenal portion measuring up to 2.6 cm in maximal transverse dimension. IVC patent. Lymph nodes: No enlarged lymph nodes in the abdomen or pelvis. Abdominal wall: Small fat-containing umbilical hernia. Musculoskeletal: Degenerative changes of the spine. Degenerative changes of the symphysis pubis. IMPRESSION: 1. Apparent wall thickening of the descending colon. Although this could be due to underdistention, this is suspicious for pathologic wall thickening which could be consistent with active inflammation of the colon in the setting of inflammatory bowel disease. No evidence of penetrating or stricturing disease. 2. Suggestion of infiltration in the perianal region. Correlate clinically for possible perianal fistula. Notably, the examination was not tailored for a perianal fistula assessment. 3. Mild prominence of the extrahepatic bile duct and interval increase in pancreatic ductal dilatation. No walter mass at the pancreatic head. Evidence of pancreas divisum. This could be further evaluated with MRCP if clinically indicated, however, a benign stricture is the favored etiology. 4. Apparent cystic lesions in the pancreas are incompletely evaluated. These could represent focal dilatation of the pancreatic duct, however, these may represent side branch intraductal papillary mucinous neoplasms or mucinous cysts. If there is clinical concern, further evaluation with dedicated contrast enhanced pancreas MR could be obtained. Electronically signed by: Loki Suero M.D. 05/04/2017 11:17 AM EKG NSR at 77 beats per minute Normal EKG Impression Assessment and Plan This is a 76 year old F with history of COPD, Crohn's disease who is not on maintenance medication for prevention of Crohn's flares, with diarrhea with abdominal CT findings suggesting infectious process vs Crohn's flare. Given acuity of diarrhea associated with food and elevated white count, this is likely infectious. Also additional CT findings of pancreatic ductal dilatation and cystic lesions in the pancreas with lab evidence that strongly supports bile duct obstruction of pancreatitis Diarrhea / Abdominal Pain/ Colonic Thickening -ciprofloxacin 400 mg IV q12 hours, flagyl 500 mg IV q6 hours -follow stool studies and blood cultures and trend WBC -hold bowel regimens Crohn's Disease -CT abdomen is unclear whether there is presence of perianal fistula -continue to monitor for symptoms, if abdominal symptoms does not resolve with antibiotics, may need GI evaluation on Crohn's disease management Pancreatic ductal dilatation and cystic lesions in the pancreas -follow radiological recommendation of MRI / MRCP for further evaluation. COPD -continue home medications of Ellipta and Levalbuterol -nebulizer treatments prn -continue home oxygen History of Stroke without residual weakness -continue home dose aspirin and plavix Other cardiovascular -continue home medications for atenolol and lisinopril and atorvastatin Psych -continue medication with serteraline -avoid benzodiazepines as there was concern for overdose as a health problem in last hospital admission in 03/2017 DVT prophylaxis with Lovenox 40 mg subc daily Code status is DNR and this discussion took place withe presence of her son ( contact number [phone], ) Advanced Directives Existing Living Will: Yes Existing Power of Occupational Therapist Assistants: Yes Resuscitation Status DO NOT RESUSCITATE VTE Prophylaxis VTE Risk Assessment Done? Y/N: Yes Risk Level: Moderate
[2017-05-04 14:05] VITALS: BP 161/76; PULSE 81; TEMP 36.8; O2SAT 96
[2017-05-04 15:08] LABS: INR 0.9 (0.9-1.1)
[2017-05-04] MEDS: METRONIDAZOLE / NSS 500 MG in PREMIXED NSS 100 ML IV SCH ×2 (15:51→20:31)
[2017-05-04] MEDS: CIPROFLOXACIN / D5W 400 MG in PREMIXED IN D5W 200 ML IV SCH (15:53)
[2017-05-04] MEDS ORDERED: GADAVIST IV PRN (16:00)
--- NOTE | 2017-05-04 16:16 | DIAGNOSTIC IMAGING REPORT ---
ABDOMEN COMBO CLINICAL HISTORY: 76 years-old Female presenting with abnormal pancraetic findings on CT abdomen. TECHNIQUE: Multisequence, multiplanar MR imaging of the abdomen was performed before and after the administration of intravenous contrast. IV contrast: 6.5 mL of Gadavist. COMPARISON: CT performed earlier the same day. FINDINGS: Localizer images: Unremarkable. Lung bases: Lung bases clear. No pericardial or pleural effusion. Liver: Normal morphology. Prominent lobular T2 hyperintense nonenhancing lesion in the lateral aspect of the left hepatic lobe, most consistent with hepatic cyst. Multiple additional cystic lesions compatible with hepatic cysts or hamartomas. No evidence of hepatic steatosis. Biliary: Normal intrahepatic biliary bifurcation. No intrahepatic biliary duct dilatation. However, moderate extrahepatic biliary ductal dilatation. The common duct is diffusely dilated with smooth tapering at the ampulla Vater. Normal gallbladder. The cystic duct has a relatively low insertion immediately superior to the pancreatic head. Pancreas: Diffuse pancreatic parenchymal atrophy. Evidence of pancreas divisum. Pancreatic ductal dilatation diffusely. Cystic change in the uncinate process without a well-defined lesion, likely representing multiple small side branch dilatation. Similar appearance of likely side branch dilatation in the pancreatic tail without a focal masslike configuration. This region measures. Spleen: Normal. Adrenal glands: Normal. Kidneys and ureters: Multiple well-defined T2 hyperintense nonenhancing lesions in the right left kidney compatible with simple cysts. No hydronephrosis. Gastrointestinal tract: Diffuse intramural edema with lack of haustration along the descending colon. No significant pericolonic inflammatory change. No bowel obstruction. Extends into the sigmoid colon and proximal rectum. Evidence of mucosal and serosal hyperenhancement. Peritoneal cavity: No free fluid. Vasculature: Aorta and IVC patent and normal in caliber. Lymph nodes: No enlarged lymph nodes in the abdomen. Abdominal wall: Normal. Musculoskeletal: Degenerative endplate changes in the lower lumbar spine. IMPRESSION: 1. The previously identified cystic appearing regions at the uncinate process and distal most pancreatic tail are consistent with side branch dilatation. No focal masslike configuration. No solid pancreatic neoplasm. Given the presence of diffuse parenchymal atrophy, main and side branch pancreatic ductal dilatation is felt to most likely reflect sequela of chronic pancreatitis. Less likely differential considerations include main duct intraductal papillary mucinous neoplasm with resultant side duct dilatation. In the absence of a clinical history of chronic pancreatitis, 6 months to 12 month follow-up contrast enhanced MR is recommended for stability. 2. Extra hepatic biliary ductal dilatation without evidence of an obstructing mass or calculus. 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 3. Evidence of chronic inflammatory changes of the descending colon through the proximal rectum. An acute inflammatory component is likely present. This could be compatible with inflammatory bowel disease. Electronically signed by: Loki Suero M.D. 05/04/2017 4:15 PM Dictated Date/Time: 05/04/2017 4:01 PM
[2017-05-04 20:36] VITALS: BP 128/65; PULSE 80
[2017-05-04] MEDS ORDERED: RANITIDINE IV 50 MG in DEXTROSE 5% 100ML 100 ML IV STA (20:45)
[2017-05-04] MEDS ORDERED: HYDROmorphone INJ 2 MG/ML SYR/VIAL IV STA (21:02)
--- NOTE | 2017-05-04 21:11 | Progress Note ---
Internal Med Progress Note Date of Service: May 04, 2017. Provider Documentation: Called by nurse that patient having abdominal pain and blood in bowel movement Medical provider went to bedside to assess patient. She is awake and oriented as she was earlier today in the ED. Patient continues to have discomfort of lower abdomen. Abdominal exam unchanged as before. She is requesting pain medications and water/ice because she has been NPO. Bowel movement was seen in toilet that is orange in color. ASSESSMENT & PLAN: Plan ordered CBC and type and screen. nurse witnessed medical provider explain risk and benefits to patient about blood transfusion if blood counts drop significantly. medications of aspirin, plavix, lovenox have been discontinued. abdomen x ray ordered. will place GI consult for evaluation as part of further hospital evaluation. Vital Signs: Date Time Temp Pulse Resp B/P (MAP) Pulse Ox O2 Delivery O2 Flow Rate FiO2 05/04/17 20:36 80 128/65 (86) 05/04/17 15:00 Nasal Cannula 2.5 05/04/17 14:05 36.8 81 18 161/76 (104) 96 Nasal Cannula 2.5 05/04/17 13:50 37.0 87 18 144/75 98 05/04/17 13:46 87 18 144/75 98 Nasal Cannula 2.0 05/04/17 12:48 99 Nasal Cannula 2.5 05/04/17 10:36 78 20 148/71 99 Nasal Cannula 2.5 05/04/17 10:35 79 17 05/04/17 10:34 148/71 05/04/17 10:30 75 27 99 Nasal Cannula 2.0 05/04/17 10:25 74 23 96 05/04/17 10:20 74 24 05/04/17 10:15 75 26 100 05/04/17 10:10 75 28 100 05/04/17 10:05 75 28 99 05/04/17 10:00 73 27 100 05/04/17 09:59 74 05/04/17 09:55 76 22 99 05/04/17 09:50 78 25 05/04/17 09:45 75 30 100 05/04/17 09:40 74 30 99 05/04/17 09:03 160/80 05/04/17 08:59 37.0 91 22 160/80 93 Room Air Lab Results: Results Past 24 Hours Test 05/04/17 09:05 05/04/17 19:55 05/04/17 20:39 Range/Units White Blood Count 22.08 4.8-10.8 K/uL Red Blood Count 4.32 4.2-5.4 M/uL Hemoglobin 12.0 12.0-16.0 g/dL Hematocrit 39.7 37-47 % Mean Corpuscular Volume 91.9 80-100 fL Mean Corpuscular Hemoglobin 27.8 25-34 pg Mean Corpuscular Hemoglobin Concent 30.2 32-36 g/dl Platelet Count 263 130-400 K/uL Mean Platelet Volume 10.3 7.4-10.4 fL Neutrophils (%) (Auto) 87.2 % Lymphocytes (%) (Auto) 4.1 % Monocytes (%) (Auto) 8.2 % Eosinophils (%) (Auto) 0.1 % Basophils (%) (Auto) 0.1 % Neutrophils # (Auto) 19.26 1.4-6.5 K/uL Lymphocytes # (Auto) 0.91 1.2-3.4 K/uL Monocytes # (Auto) 1.81 0.11-0.59 K/uL Eosinophils # (Auto) 0.02 0-0.5 K/uL Basophils # (Auto) 0.02 0-0.2 K/uL RDW Standard Deviation 44.5 36.4-46.3 fL RDW Coefficient of Variation 13.2 11.5-14.5 % Immature Granulocyte % (Auto) 0.3 % Immature Granulocyte # (Auto) 0.06 0.00-0.02 K/uL Prothrombin Time 10.0 9.0-12.0 SECONDS Prothromb Time International Ratio 0.9 0.9-1.1 Sodium Level 142 136-145 mmol/L Potassium Level 3.6 3.5-5.1 mmol/L Chloride Level 106 98-107 mmol/L Carbon Dioxide Level 28 21-32 mmol/L Anion Gap 8.0 3-11 mmol/L Blood Urea Nitrogen 20 7-18 mg/dl Creatinine 0.83 0.60-1.20 mg/dl Est Creatinine Clear Calc Drug Dose 48.3 ml/min Estimated GFR () 78.3 Estimated GFR (Non- 67.5 BUN/Creatinine Ratio 24.0 10-20 Random Glucose 155 70-99 mg/dl Calcium Level 9.2 8.5-10.1 mg/dl Total Bilirubin 0.2 0.2-1 mg/dl Direct Bilirubin < 0.1 0-0.2 mg/dl Aspartate Amino Transf (AST/SGOT) 20 15-37 U/L Alanine Aminotransferase (ALT/SGPT) 24 12-78 U/L Alkaline Phosphatase 117 45-117 U/L Total Protein 7.4 6.4-8.2 gm/dl Albumin 4.0 3.4-5.0 gm/dl Amylase Level 54 25-115 U/L Lipase 82 73-393 U/L Microbiology Results 05/04/17 Blood Culture, Received Pending 05/04/17 Blood Culture, Received Pending
[2017-05-04 21:13] LABS: BASO % 0.1 %; BASO ABS # 0.02 K/uL (0-0.2); COMPLETE YES; EOS % 0.1 %; HEMATOCRIT 35.9 % (37-47); IG% 0.3 %; LYMPH ABS # 1.25 K/uL (1.2-3.4); MEAN CELL VOLUME 90.2 fL (80-100); MEAN CORPUSCULAR HEMOGLOBIN 28.4 pg (25-34); MEAN CORPUSCULAR HGB CONC 31.5 g/dl (32-36); MEAN PLATELET VOLUME 9.6 fL (7.4-10.4); MONO % 7.4 %; NEUT % 85.1 %; PLATELET COUNT 169 K/uL (130-400); RED BLOOD COUNT 3.98 M/uL (4.2-5.4); WHITE BLOOD COUNT 17.78 K/uL (4.8-10.8)
--- NOTE | 2017-05-04 21:58 | DIAGNOSTIC IMAGING REPORT ---
ABDOMEN 2VIEW W/PA CHEST RTN CLINICAL HISTORY: 76 years-old Female presenting with abdominal pain, blood in stool. TECHNIQUE: PA view of the chest and supine and upright views of the abdomen were obtained. COMPARISON: 03/29/2017. FINDINGS: Atherosclerosis of the aortic arch. Cardiac silhouette normal in size. No focal infiltrate. No large effusion or pneumothorax. Surgical clips project over the right midlung. Moderate stool burden in the colon predominantly in the right colon. No gross pneumoperitoneum. Degenerative changes of the lower lumbar spine. The bladder is opacified with excreted contrast. IMPRESSION: 1. No acute cardiopulmonary disease. 2. Findings could suggest constipation. Electronically signed by: Loki Suero M.D. 05/04/2017 9:57 PM Dictated Date/Time: 05/04/2017 9:55 PM
[2017-05-04 23:10] VITALS: BP 110/53; PULSE 71; TEMP 36.5; O2SAT 96
[2017-05-05] VITALS: O2SAT 98
[2017-05-05] MEDS: METRONIDAZOLE / NSS 500 MG in PREMIXED NSS 100 ML IV SCH ×4 (02:32→21:38)
[2017-05-05] MEDS: RANITIDINE IV 50 MG in DEXTROSE 5% 100ML 100 ML IV SCH ×3 (03:43→20:47)
[2017-05-05] MEDS: CIPROFLOXACIN / D5W 400 MG in PREMIXED IN D5W 200 ML IV SCH ×2 (04:52→16:13)
[2017-05-05 06:20] LABS: URINE APPEARANCE CLEAR (CLEAR); URINE BILIRUBIN NEG (NEG); URINE COLOR DK YELLOW; URINE NITRITE NEG (NEG); URINE PH 6.5 (4.5-7.5); URINE SPECIFIC GRAVITY 1.036 (1.000-1.030); UROBILINOGEN NEG (NEG); ZZUR CULT IF INDIC CLEAN CATCH NO
[2017-05-05 06:26] LABS: MANUAL MICROSCOPIC REQUIRED? NO; REVIEW REQ? NO
[2017-05-05] MEDS: AMLODIPINE BESYLATE 5 MG TAB PO SCH (07:34)
[2017-05-05] MEDS: LISINOPRIL 40 MG TAB PO SCH (07:35)
[2017-05-05] MEDS: SERTRALINE HCL 100 MG TAB PO SCH (07:35)
[2017-05-05] MEDS: ATORVASTATIN 40 MG TAB PO SCH (07:35)
[2017-05-05 07:37] LABS: BASO % 0.1 %; BASO ABS # 0.02 K/uL (0-0.2); COMPLETE YES; EOS % 0.4 %; HEMATOCRIT 32.2 % (37-47); IG% 0.3 %; LYMPH % 12.3 %; LYMPH ABS # 1.66 K/uL (1.2-3.4); MEAN CELL VOLUME 92.3 fL (80-100); MEAN CORPUSCULAR HEMOGLOBIN 28.7 pg (25-34); MEAN CORPUSCULAR HGB CONC 31.1 g/dl (32-36); MONO % 9.3 %; NEUT % 77.6 %; PLATELET COUNT 157 K/uL (130-400); RED BLOOD COUNT 3.49 M/uL (4.2-5.4); WHITE BLOOD COUNT 13.49 K/uL (4.8-10.8)
[2017-05-05 07:44] VITALS: BP 117/69; PULSE 81; TEMP 36.7; O2SAT 96
[2017-05-05 08:23] LABS: ALB/GLOB RATIO 0.9 (0.9-2); CREATININE 0.58 mg/dl (0.60-1.20); POTASSIUM 3.9 mmol/L (3.5-5.1)
[2017-05-05 08:24] LABS: CALCIUM 7.8 mg/dl (8.5-10.1)
[2017-05-05] MEDS ORDERED: UMECLIDINIUM VILANTEROL PO SCH (09:00)
[2017-05-05] MEDS ORDERED: [UNRECOGNIZED DRUG - OTHER] PO SCH (09:00)
[2017-05-05] MEDS ORDERED: ASPIRIN 81 MG ECTAB PO SCH (09:00)
[2017-05-05] MEDS ORDERED: ENOXAPARIN 40 MG/0.4 ML SYR SQ SCH (09:00)
[2017-05-05] MEDS ORDERED: CLOPIDOGREL BISULFATE 75 MG TAB PO SCH (09:00)
[2017-05-05] MEDS ORDERED: NON-FORMULARY MEDICATION (Fluticasone Furoate (Inhalatio (Arnuity Ellipta) 1 PUFF) PO SCH (09:00)
[2017-05-05] MEDS ORDERED: ONDANSETRON INJ 2 MG/ML 2 ML VIAL ONE (10:58)
[2017-05-05] MEDS ORDERED: HYDROmorphone INJ 0.5 MG/0.5 ML SYR ONE (10:58)
[2017-05-05] MEDS: D5W AND NSS 1,000 ML IV SCH (11:10)
--- NOTE | 2017-05-05 11:48 | Progress Note ---
Internal Med Progress Note Date of Service: May 05, 2017. Provider Documentation: SUBJECTIVE: complains of abdominal pain and nausea request fo pain meds still having blood per rectum request to place on liquid diet afebrile no chest pain o sob OBJECTIVE: Vital Signs-as noted below Exam: General-alert and oriented. Not in distress ENT-normal hearing Neck-no neck masses Lungs-cta b/l no wheezing or crackles Heart-s1 and s2 heard regular rate and rhythm, no murmurs Abdomen-soft bowel sounds present diffuse tender no distension Extremities no edema no erythema Neuro-alert and oriented moves extremities Lab data as noted below. ASSESSMENT & PLAN: Diarrhea / Abdominal Pain/ Colonic Thickening infection vs inflammation on ciprofloxacin 400 mg IV q12 hours, flagyl 500 mg IV q6 hours -follow stool studies and blood cultures and trend WBC will monitor Crohn's Disease flare? CT abdomen is unclear whether there is presence of perianal fistula hx of Crohn disease. Not on any maintenance meds presents with abdominal pain and bloody bowel movements ct scan -inflammatory changes consulted GI- wait inpits Anemia acute blood loss? hb 12 to 10.0 will f/u labs Pancreatic ductal dilatation and cystic lesions in the pancreas on ct scan MRI shows sequela of chronic pancreatitis vs mucinous pancreatic neoplasm await Gi input COPD chronic resp failure On home medications of Ellipta and Levalbuterol Nebs prn on home oxygen History of Stroke without residual weakness on aspirin and plavix which are held for gi bleeding Other cardiovascular on atenolol and lisinopril and atorvastatin Psych on serteraline To avoid benzodiazepines as there was concern for overdose as a health problem in last hospital admission in 03/2017 DVT prophylaxis scds DISPOSITION to be determined Vital Signs: Date Time Temp Pulse Resp B/P (MAP) Pulse Ox O2 Delivery O2 Flow Rate FiO2 05/05/17 08:00 Nasal Cannula 2.5 05/05/17 07:44 36.7 81 18 117/69 (85) 96 3.0 05/05/17 00:00 98 Nasal Cannula 2.5 05/04/17 23:10 36.5 71 16 110/53 (72) 96 Nasal Cannula 3.0 05/04/17 20:36 80 128/65 (86) 05/04/17 15:00 Nasal Cannula 2.5 05/04/17 14:05 36.8 81 18 161/76 (104) 96 Nasal Cannula 2.5 05/04/17 13:50 37.0 87 18 144/75 98 05/04/17 13:46 87 18 144/75 98 Nasal Cannula 2.0 05/04/17 12:48 99 Nasal Cannula 2.5 Lab Results: Results Past 24 Hours Test 05/04/17 21:02 05/05/17 05:15 05/05/17 07:17 Range/Units White Blood Count 17.78 13.49 4.8-10.8 K/uL Red Blood Count 3.98 3.49 4.2-5.4 M/uL Hemoglobin 11.3 10.0 12.0-16.0 g/dL Hematocrit 35.9 32.2 37-47 % Mean Corpuscular Volume 90.2 92.3 80-100 fL Mean Corpuscular Hemoglobin 28.4 28.7 25-34 pg Mean Corpuscular Hemoglobin Concent 31.5 31.1 32-36 g/dl Platelet Count 169 157 130-400 K/uL Mean Platelet Volume 9.6 10.0 7.4-10.4 fL Neutrophils (%) (Auto) 85.1 77.6 % Lymphocytes (%) (Auto) 7.0 12.3 % Monocytes (%) (Auto) 7.4 9.3 % Eosinophils (%) (Auto) 0.1 0.4 % Basophils (%) (Auto) 0.1 0.1 % Neutrophils # (Auto) 15.13 10.45 1.4-6.5 K/uL Lymphocytes # (Auto) 1.25 1.66 1.2-3.4 K/uL Monocytes # (Auto) 1.31 1.26 0.11-0.59 K/uL Eosinophils # (Auto) 0.01 0.06 0-0.5 K/uL Basophils # (Auto) 0.02 0.02 0-0.2 K/uL RDW Standard Deviation 43.8 45.0 36.4-46.3 fL RDW Coefficient of Variation 13.2 13.4 11.5-14.5 % Immature Granulocyte % (Auto) 0.3 0.3 % Immature Granulocyte # (Auto) 0.06 0.04 0.00-0.02 K/uL Urine Color DK YELLOW Urine Appearance CLEAR CLEAR Urine pH 6.5 4.5-7.5 Urine Specific [place] 1.036 1.000-1.030 Urine Protein TRACE NEG Urine Glucose (UA) NEG NEG Urine Ketones NEG NEG Urine Occult Blood 1+ NEG Urine Nitrite NEG NEG Urine Bilirubin NEG NEG Urine Urobilinogen NEG NEG Urine Leukocyte Esterase NEG NEG Urine WBC (Auto) 1-5 0-5 /hpf Urine RBC (Auto) 0-4 0-4 /hpf Urine Hyaline Casts (Auto) 1-5 0-5 /lpf Urine Epithelial Cells (Auto) 10-20 0-5 /lpf Urine Bacteria (Auto) NEG NEG Sodium Level 141 136-145 mmol/L Potassium Level 3.9 3.5-5.1 mmol/L Chloride Level 107 98-107 mmol/L Carbon Dioxide Level 30 21-32 mmol/L Anion Gap 4.0 3-11 mmol/L Blood Urea Nitrogen 14 7-18 mg/dl Creatinine 0.58 0.60-1.20 mg/dl Est Creatinine Clear Calc Drug Dose 69.1 ml/min Estimated GFR () 102.3 Estimated GFR (Non- 88.3 BUN/Creatinine Ratio 24.0 10-20 Random Glucose 117 70-99 mg/dl Calcium Level 7.8 8.5-10.1 mg/dl Total Bilirubin 0.2 0.2-1 mg/dl Aspartate Amino Transf (AST/SGOT) 18 15-37 U/L Alanine Aminotransferase (ALT/SGPT) 17 12-78 U/L Alkaline Phosphatase 84 45-117 U/L Total Protein 6.1 6.4-8.2 gm/dl Albumin 2.9 3.4-5.0 gm/dl Globulin 3.2 2.5-4.0 gm/dl Albumin/Globulin Ratio 0.9 0.9-2 Chemistry Specimen Hemolysis Microbiology Results 05/04/17 Blood Culture, Received Pending 05/04/17 Blood Culture, Received Pending
[2017-05-05] MEDS: LEVALBUTEROL 1.25MG/3ML NEB INH PRN (15:48)
[2017-05-05 15:49] VITALS: PULSE 76; O2SAT 93
[2017-05-05 16:07] VITALS: BP 137/71; PULSE 73; TEMP 36.2; O2SAT 92
--- NOTE | 2017-05-05 17:08 | Medical Consult ---
Consultation Note Date of Service May 05, 2017. Consultation Note Reason for consult: ? Crohns History of Present Illness 76 yo female with PMH sig for Crohn's disease. She was dx'd in 2002 with ilelo colonic Crohn's. She was last seen in our clinic in 2008, and had colonoscopy that showed no gross or histologic evidence of disease. She is not currently on any medication for Crohn's disease, and tells me that for the past several years, she has intermittent diarrhea that lasts a few days occurring once every few months. She is a vague historian, but tells me that for the past few months, she had worsening nausea, fair appetite, and diffuse abdominal pain. She reports two episodes of diarrhea in the past few months, but cannot tell me when they occurred; her baseline stool pattern is constipation. She also has been having rectal bleeding of more recent onset. She denies any acute worsening of her symptoms to me, and presented to the ER yesterday "because I was tired of feeling sick." On presentation to ER, she underwent CT which showed possible left sided colitis vs underdistention and infiltration of perianal fat; she also had PD dilation and biliary dilation. Her labs were significant for WBC 22k; her LFT's and lipase were normal. Overnight, she has been given cipro and Flagyl and her WBC has improved to 13 k; she is tolerating clears. She had an MRCP this morning which shows multiple cysts in the pancreas, PD dilation and EHDD. Of note, she has a h/o depression, and was reently hospitalized in early April for a drug overdose. Past Medical/Surgical History Medical Problems: (1) COPD (chronic obstructive pulmonary disease) Status: Chronic (2) COPD (chronic obstructive pulmonary disease) Status: Chronic (3) Crohn's disease Status: Chronic (4) Depression Status: Chronic (5) Ectopic Status: Chronic (6) HLD (hyperlipidemia) Status: Chronic (7) HTN (hypertension) Status: Chronic (8) Osteoporosis Status: Chronic Surgical Problems: (1) H/O colonoscopy Status: Chronic (2) History of cataract surgery Status: Chronic (3) History of esophagogastroduodenoscopy (EGD) Status: Chronic (4) S/P laser trabeculoplasty of eye Status: Chronic Family History FH: cancer FH: gallbladder disease FH: lung disease Kidney stones Social History Smoking Status: Former Smoker Drug Use: none Marital Status: Housing status: lives alone 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, other Immunizations History of Influenza Vaccine: Yes Influenza Vaccine Date: Jun 09, 2013 History of Tetanus Vaccine?: Yes Tetanus Immunization Date: Oct 09, 1989 History of Pneumococcal: Yes Pneumococcal Date: Oct 09, 1989 History of Hepatitis B Vaccine: Yes Hepatitis Immunization Date: Sep 10, 1994 Multi-Drug Resistant Organisms History of MDRO: No Allergies Coded Allergies: No Known Allergies (Unverified , 03/29/17) Home Medications Scheduled Amlodipine (Norvasc), 10 MG PO DAILY Aspirin (Aspirin EC Low Dose), 81 MG PO QAM Atenolol (Tenormin), 75 MG PO BID Atorvastatin (Atorvastatin Calcium), 40 MG PO QAM Clopidogrel Bisulfate (Clopidogrel), 75 MG PO QAM Docusate Sodium (Docusate Sodium), 100 MG PO BID Fish Oil (Berwick-3), 1 CAP PO DAILY Fluticasone Furoate (Inhalatio (Arnuity Ellipta), 1 PUFF PO DAILY Gabapentin (Gabapentin), 300 MG PO TID Home O2 Therapy (Oxygen), 2.5 LITERS NA CONTINOUS Lisinopril (Zestril), 40 MG PO DAILY Multivitamin (Multivitamin), 1 TAB PO DAILY Sertraline (Zoloft), 150 MG PO DAILY Umeclidinium-Vilanterol (Anoro Ellipta 62.5-25 Mcg/INH), 1 PUFF PO DAILY Scheduled PRN Albuterol Sulfate (Proair Respiclick), 2 PUFF INH Q4 PRN for SOB/Wheezing Hydroxyzine HCl (Hydroxyzine HCl), 50 MG PO HSZ PRN for Insomnia Levalbuterol (Levalbuterol HCl), 1.25 MG NEB Q8 PRN for Wheezing Loperamide Hcl (Imodium), 2 MG PO DAILY PRN for Diarrhea Review of Systems Constitutional: No fever, No weakness, No fatigue Eyes: No discharge ENT: No sore throat Respiratory: No cough, No shortness of breath, No dyspnea on exertion, No dyspnea at rest Cardiovascular: No chest pain, No edema Abdomen: + pain, + diarrhea Genitourinary - Female: No dysuria Neurologic: No paralysis, No numbness/tingling Psychiatric: No substance abuse Hematologic / Lymphatic: No swollen lymph nodes Integumentary: No rash Physical Ex - H&P Physical Exam Vital Signs Date Time Temp Pulse Resp B/P (MAP) Pulse Ox O2 Delivery O2 Flow Rate FiO2 05/05/17 16:07 36.2 73 16 137/71 (93) 92 Nasal Cannula 3.0 05/05/17 15:49 76 18 93 Nasal Cannula 3.0 05/05/17 15:25 Nasal Cannula 2.5 05/05/17 08:00 Nasal Cannula 2.5 05/05/17 07:44 36.7 81 18 117/69 (85) 96 3.0 05/05/17 00:00 98 Nasal Cannula 2.5 05/04/17 23:10 36.5 71 16 110/53 (72) 96 Nasal Cannula 3.0 05/04/17 20:36 80 128/65 (86) General Appearance: She is anxious and sad appearing, but in no acute distress. During my interview, she offers to "just leave the hospital and go home" Head: normocephalic, atraumatic Eyes: normal inspection, EOMI, sclerae normal ENT: normal ENT inspection, hearing grossly normal, pharynx normal Neck: supple, no JVD Respiratory/Chest: chest non-tender, lungs clear, normal breath sounds, no respiratory distress, no accessory muscle use Cardiovascular: regular rate, rhythm, no edema, no JVD, normal peripheral pulses Abdomen/GI: normal bowel sounds, soft, no pulsatile mass, mild tenderness in lower abdomen. Rectal: Brown and maroon stool; hemorrhoids withevidence of perianal abscess or fistula Back: normal inspection, no CVA tenderness, no muscle spasm, normal range of motion Extremities/Musculoskelatal: normal inspection, no calf tenderness, normal capillary refill, no pedal edema, normal range of motion, non-tender Neurologic/Psych: no motor/sensory deficits, alert, normal mood/affect, oriented x 3 Skin: normal color, warm/dry Diagnostics - H&P Diagnostics Laboratory Results Results Past 24 Hours Test 05/04/17 09:05 Range/Units White Blood Count 22.08 4.8-10.8 K/uL Red Blood Count 4.32 4.2-5.4 M/uL Hemoglobin 12.0 12.0-16.0 g/dL Hematocrit 39.7 37-47 % Mean Corpuscular Volume 91.9 80-100 fL Mean Corpuscular Hemoglobin 27.8 25-34 pg Mean Corpuscular Hemoglobin Concent 30.2 32-36 g/dl Platelet Count 263 130-400 K/uL Mean Platelet Volume 10.3 7.4-10.4 fL Neutrophils (%) (Auto) 87.2 % Lymphocytes (%) (Auto) 4.1 % Monocytes (%) (Auto) 8.2 % Eosinophils (%) (Auto) 0.1 % Basophils (%) (Auto) 0.1 % Neutrophils # (Auto) 19.26 1.4-6.5 K/uL Lymphocytes # (Auto) 0.91 1.2-3.4 K/uL Monocytes # (Auto) 1.81 0.11-0.59 K/uL Eosinophils # (Auto) 0.02 0-0.5 K/uL Basophils # (Auto) 0.02 0-0.2 K/uL RDW Standard Deviation 44.5 36.4-46.3 fL RDW Coefficient of Variation 13.2 11.5-14.5 % Immature Granulocyte % (Auto) 0.3 % Immature Granulocyte # (Auto) 0.06 0.00-0.02 K/uL Sodium Level 142 136-145 mmol/L Potassium Level 3.6 3.5-5.1 mmol/L Chloride Level 106 98-107 mmol/L Carbon Dioxide Level 28 21-32 mmol/L Anion Gap 8.0 3-11 mmol/L Blood Urea Nitrogen 20 7-18 mg/dl Creatinine 0.83 0.60-1.20 mg/dl Est Creatinine Clear Calc Drug Dose 48.3 ml/min Estimated GFR () 78.3 Estimated GFR (Non- 67.5 BUN/Creatinine Ratio 24.0 10-20 Random Glucose 155 70-99 mg/dl Calcium Level 9.2 8.5-10.1 mg/dl Total Bilirubin 0.2 0.2-1 mg/dl Direct Bilirubin < 0.1 0-0.2 mg/dl Aspartate Amino Transf (AST/SGOT) 20 15-37 U/L Alanine Aminotransferase (ALT/SGPT) 24 12-78 U/L Alkaline Phosphatase 117 45-117 U/L Total Protein 7.4 6.4-8.2 gm/dl Albumin 4.0 3.4-5.0 gm/dl Amylase Level 54 25-115 U/L Lipase 82 73-393 U/L Microbiology Results 05/04/17 Blood Culture, Ordered Pending 05/04/17 Blood Culture, Ordered Pending Impression - H&P Impression Assessment and Plan H/o Crohn's disease Now admit with lingering abd pain and nausea - She is a difficult historian, but she does not seem to have acute symptoms to suggest a flare of her Crohn's or acute infectious diarrhea. I reviewed her CT - she has L colon wall thickening without mesenteric infiltration, suggesting the findings are more secondary to underdistention. Her stool studies are pending. Nonetheless, given the history of IBD, blood on rectal exam, and otherwise unexplained leukocytosis, will proceed with csocpy tomorrow. Will again request stool studies for C diff, culture. - Regarding her MRCP and pancreas appearance on CT - She has a double duct sign , and multiple cysts in the pancreas. I agree with the radiologist's suspicion that she likely has chronic pancreatitis, possibly related to PD outflow obstruction from divisum; this may be the cause of her chronic GI symptoms. It may also be possible that she has multiple IPMNs, and that she has ampullary obstruction related to this; I cannot rule out an underlying pancreatic malignancym related to IPMN's, or pancreatic adenoca. This can be w/u as an outpt, with an EUS.
[2017-05-05 17:14] LABS: HEMATOCRIT 33.7 % (37-47)
[2017-05-05 20:50] VITALS: BP 161/72; PULSE 85
[2017-05-05] MEDS ORDERED: LAVAGE SOLUTION 4000ML PO SCH (21:44)
[2017-05-05] MEDS: HYDROmorphone INJ 0.5 MG/0.5 ML SYR IV PRN (21:54)
[2017-05-05 23:40] VITALS: BP 116/42; PULSE 75; TEMP 36.4; O2SAT 93
[2017-05-06] VITALS: O2SAT 93
[2017-05-06] MEDS: D5W AND NSS 1,000 ML IV SCH ×2 (00:23→14:17)
[2017-05-06] MEDS: METRONIDAZOLE / NSS 500 MG in PREMIXED NSS 100 ML IV SCH ×4 (02:15→20:48)
[2017-05-06] MEDS: HYDROmorphone INJ 0.5 MG/0.5 ML SYR IV PRN ×3 (02:19→19:29)
[2017-05-06] MEDS: RANITIDINE IV 50 MG in DEXTROSE 5% 100ML 100 ML IV SCH ×3 (03:34→19:40)
[2017-05-06] MEDS: CIPROFLOXACIN / D5W 400 MG in PREMIXED IN D5W 200 ML IV SCH ×2 (04:59→16:27)
[2017-05-06 07:47] VITALS: BP 153/74; PULSE 75; TEMP 36.7; O2SAT 96
[2017-05-06] MEDS: AMLODIPINE BESYLATE 5 MG TAB PO SCH (08:55)
[2017-05-06] MEDS: SERTRALINE HCL 100 MG TAB PO SCH (08:57)
[2017-05-06] MEDS: LISINOPRIL 40 MG TAB PO SCH (08:57)
[2017-05-06] MEDS: ATORVASTATIN 40 MG TAB PO SCH (08:57)
[2017-05-06 10:20] LABS: BASO % 0.2 %; BASO ABS # 0.02 K/uL (0-0.2); COMPLETE YES; EOS % 0.2 %; HEMATOCRIT 35.9 % (37-47); IG% 0.3 %; LYMPH % 7.8 %; LYMPH ABS # 1.02 K/uL (1.2-3.4); MEAN CELL VOLUME 90.9 fL (80-100); MEAN CORPUSCULAR HEMOGLOBIN 28.1 pg (25-34); MEAN CORPUSCULAR HGB CONC 30.9 g/dl (32-36); MEAN PLATELET VOLUME 9.9 fL (7.4-10.4); MONO % 5.1 %; NEUT % 86.4 %; PLATELET COUNT 205 K/uL (130-400); RED BLOOD COUNT 3.95 M/uL (4.2-5.4); WHITE BLOOD COUNT 13.09 K/uL (4.8-10.8)
--- NOTE | 2017-05-06 10:34 | Gastroenterology Progress Note ---
Progress Note Date of Service: May 06, 2017 Subjective Pt evaluation today including: conversation w/ patient, physical exam, chart review, lab review, review of studies, review of inpatient medication list Ms. Liu is a 76 yr old female patient of Dr. Alejandra with a hx of ileocolonic Crohn's who was admitted on 05/04 for right lower quadrant pain. CT with IV contrast with wall thickening of the descending colon and perianal infiltration as well as cystic lesions in the pancreas. This morning she has only had two formed BMs, having taken a small amt of prep last night and this morning. She is angry that she can't undergo the colonoscopy today (inadequate prep) and is refusing to continue prep for tomorrow. She is a vague historian and difficult to reason with, though she clearly understands what a colonoscopy is and is clearly refusing. Most recent colonoscopy was [address] Boyer w/o endoscopic or histologic evidence of disease. Review of Systems Constitutional: No fever Respiratory: No cough Cardiac: No chest pain Abdomen: + pain (though admitted for this, she is currently denying abd pain but is mildly tender in both lower quadrants on exam. ) Neuro: + memory loss (suspect - as she could not recall most specifics during the interview such as doctor's names, when prior procedures were completed etc. ) Psych: No depression symptoms Endo: No fatigue Medications Current Inpatient Medications Medications (Trade) Dose Ordered Sig/Ashlee Route Start Time Stop Time Status Last Admin Dose Admin Ioversol (Optiray 320) 100 ml UD PRN IV 05/04/17 09:30 05/08/17 09:29 Acetaminophen (Tylenol Tab) 650 mg Q4H PRN PO 05/04/17 12:00 06/03/17 11:59 05/05/17 07:40 650 MG Metronidazole 500 mg/Prmx 100 ml @ 100 mls/hr Q6H IV 05/04/17 14:30 05/14/17 14:29 05/06/17 08:58 100 MLS/HR Ciprofloxacin/ Dextrose 400 mg/ Prmx 200 ml @ 100 mls/hr Q12H IV 05/04/17 16:00 05/14/17 15:59 05/06/17 04:59 100 MLS/HR Amlodipine Besylate (Norvasc Tab) 10 mg DAILY PO 05/05/17 09:00 06/04/17 08:59 05/06/17 08:55 10 MG Atenolol (Tenormin Tab) 75 mg BID PO 05/04/17 21:00 06/03/17 20:59 05/06/17 08:57 75 MG Atorvastatin Calcium (Lipitor Tab) 40 mg QAM PO 05/05/17 09:00 06/04/17 08:59 05/06/17 08:57 40 MG Hydroxyzine HCl (Vistaril Tab) 50 mg HSZ PRN PO 05/04/17 13:45 06/03/17 13:44 Levalbuterol (Xopenex 1.25MG/ 3ML Neb) 1.25 mg Q8 PRN INH 05/04/17 13:45 06/03/17 13:44 05/05/17 15:48 1.25 MG Lisinopril (Zestril Tab) 40 mg DAILY PO 05/05/17 09:00 06/04/17 08:59 05/06/17 08:57 40 MG Sertraline HCl (Zoloft Tab) 150 mg DAILY PO 05/05/17 09:00 06/04/17 08:59 05/06/17 08:57 150 MG Gadobutrol (Gadavist) 6.5 mmol UD PRN IV 05/04/17 16:00 05/08/17 15:59 Miscellaneous Information (Order Awaiting Action) 1 ea QS N/A 05/05/17 00:00 06/04/17 00:00 Miscellaneous Information (Order Awaiting Action) 1 ea QS N/A 05/05/17 00:00 06/04/17 00:00 Ranitidine HCl 50 mg/Dextrose 102 ml @ 200 mls/hr Q8H IV 05/05/17 04:00 06/04/17 03:59 05/06/17 03:34 200 MLS/HR Ondansetron HCl (Zofran Inj) 4 mg Q6H PRN IV 05/05/17 10:45 06/04/17 10:44 Hydromorphone HCl (Dilaudid Inj) 0.5 mg Q3HWA PRN IV 05/05/17 10:45 05/19/17 10:44 05/06/17 02:19 0.5 MG Dextrose/Sodium Chloride 1,000 ml @ 75 mls/hr [id number] IV 05/05/17 10:45 06/04/17 10:44 05/06/17 00:23 75 MLS/HR Objective Vital Signs Date Time Temp Pulse Resp B/P (MAP) Pulse Ox O2 Delivery O2 Flow Rate FiO2 05/06/17 08:40 Nasal Cannula 3.0 05/06/17 07:47 36.7 75 18 153/74 (100) 96 2.0 05/06/17 00:00 93 Nasal Cannula 3.0 05/05/17 23:40 36.4 75 16 116/42 (66) 93 Nasal Cannula 2.0 05/05/17 22:03 Room Air 05/05/17 20:50 85 161/72 (101) 05/05/17 16:07 36.2 73 16 137/71 (93) 92 Nasal Cannula 3.0 05/05/17 15:49 76 18 93 Nasal Cannula 3.0 05/05/17 15:25 Nasal Cannula 2.5 Physical Exam General Appearance: no apparent distress ENT: pharynx normal Neck: no JVD Respiratory/Chest: lungs clear Cardiovascular: regular rate, rhythm, no murmur Abdomen: soft, + tenderness (bilateral lower abdomen, mildly tender) Neurologic/Psych: alert, + pertinent finding (mildly agitated. ) Skin: no jaundice, warm/dry Laboratory Results Last 24 Hours Test 05/05/17 17:03 05/06/17 09:54 Hemoglobin 10.2 g/dL Hematocrit 33.7 % Assessment and Plan Ms. Liu is a 76 yr old female with reported but undocumented hx of Crohn's colitis admitted with RLQ pain, CT suggestive of descending colon wall thickening, perianal infiltration, pancreas lesions suggestive of IPMNs or MCNs vs. dilated duct. Additionally, though no clear evidence of active Crohn's (no diarrhea, no obvious and persistent abdominal pain), she had leukocytosis on arrival at 22, now 13 on Cipro Flagyl and no source of infection has been found. There was blood in the urine sample so possibly a UTI. Plan: 1. Pt was demanding that we go forward with colonoscopy today. Unfortunately we are unable to do this as it would not be useful with a very minimal prep. 2. Pt is refusing to continue prep for colonoscopy tomorrow. 3. I called her son Sheldon and left a message asking him to call back ( providing my cell phone number) however, if she refuses, we are not able to require her to go forward. 4. If no colonoscopy then would f/u as an OP in GI clinic to further address Crohn's symptoms and pancreas lesions. Addendum: When rounding with Dr. Meade, the pt indicated that she would be willing to take the prep and undergo colonoscopy tomorrow. Will attempt for colonoscopy tomorrow. Will reorder prep for today and colonoscopy tomorrow. I have personally seen and examined the patient with MARGARITO Lynch on . Her note reflects my exam and findings. I agree with her impression and plan. Previous colonoscopy along with random bxs were completely normal. Will arrange repeat colonoscopy if patient agrees. Troy Meade M.D.
[2017-05-06 10:47] LABS: BUN/CREATININE RATIO 13.4 (10-20); CALCIUM 8.3 mg/dl (8.5-10.1); CREATININE 0.45 mg/dl (0.60-1.20); POTASSIUM 3.3 mmol/L (3.5-5.1)
--- NOTE | 2017-05-06 11:17 | Progress Note ---
Internal Med Progress Note Date of Service: May 06, 2017. Provider Documentation: SUBJECTIVE: resting comfortably says she drank prep but only had two hard bowel movements still has some blood in stools no nauseas or abdominal pain afebrile OBJECTIVE: Vital Signs-as noted below Exam: General-alert and oriented. Not in distress ENT-normal hearing Neck-no neck masses Lungs-cta b/l no wheezing or crackles Heart-s1 and s2 heard regular rate and rhythm, no murmurs Abdomen-soft bowel sounds present mild diffuse tender no distension Extremities no edema no erythema Neuro-alert and oriented moves extremities Lab data as noted below. ASSESSMENT & PLAN: Diarrhea / Abdominal Pain/ Colonic Thickening infection vs inflammation on ciprofloxacin 400 mg IV q12 hours, flagyl 500 mg IV q6 hours bx negative aairt stool cx improving? Crohn's Disease flare? CT abdomen is unclear whether there is presence of perianal fistula hx of Crohn disease. Not on any maintenance meds presents with abdominal pain and bloody bowel movements ct scan -inflammatory changes consulted GI- plan for colonoscopy Anemia acute blood loss? hb 12 to 10.0 will f/u labs Pancreatic ductal dilatation and cystic lesions in the pancreas on ct scan MRI shows sequela of chronic pancreatitis vs mucinous pancreatic neoplasm f/u GI COPD chronic resp failure On home medications of Ellipta and Levalbuterol Nebs prn on home oxygen History of Stroke without residual weakness on aspirin and plavix which are held for gi bleeding Other cardiovascular on atenolol and lisinopril and atorvastatin Psych on serteraline To avoid benzodiazepines as there was concern for overdose as a health problem in last hospital admission in 03/2017 DVT prophylaxis scds DISPOSITION to be determined Vital Signs: Date Time Temp Pulse Resp B/P (MAP) Pulse Ox O2 Delivery O2 Flow Rate FiO2 05/06/17 08:40 Nasal Cannula 3.0 05/06/17 07:47 36.7 75 18 153/74 (100) 96 2.0 05/06/17 00:00 93 Nasal Cannula 3.0 05/05/17 23:40 36.4 75 16 116/42 (66) 93 Nasal Cannula 2.0 05/05/17 22:03 Room Air 05/05/17 20:50 85 161/72 (101) 05/05/17 16:07 36.2 73 16 137/71 (93) 92 Nasal Cannula 3.0 05/05/17 15:49 76 18 93 Nasal Cannula 3.0 05/05/17 15:25 Nasal Cannula 2.5 Lab Results: Results Past 24 Hours Test 05/05/17 17:03 05/06/17 09:54 Range/Units Hemoglobin 10.2 11.1 12.0-16.0 g/dL Hematocrit 33.7 35.9 37-47 % White Blood Count 13.09 4.8-10.8 K/uL Red Blood Count 3.95 4.2-5.4 M/uL Mean Corpuscular Volume 90.9 80-100 fL Mean Corpuscular Hemoglobin 28.1 25-34 pg Mean Corpuscular Hemoglobin Concent 30.9 32-36 g/dl Platelet Count 205 130-400 K/uL Mean Platelet Volume 9.9 7.4-10.4 fL Neutrophils (%) (Auto) 86.4 % Lymphocytes (%) (Auto) 7.8 % Monocytes (%) (Auto) 5.1 % Eosinophils (%) (Auto) 0.2 % Basophils (%) (Auto) 0.2 % Neutrophils # (Auto) 11.31 1.4-6.5 K/uL Lymphocytes # (Auto) 1.02 1.2-3.4 K/uL Monocytes # (Auto) 0.67 0.11-0.59 K/uL Eosinophils # (Auto) 0.03 0-0.5 K/uL Basophils # (Auto) 0.02 0-0.2 K/uL RDW Standard Deviation 43.6 36.4-46.3 fL RDW Coefficient of Variation 13.0 11.5-14.5 % Immature Granulocyte % (Auto) 0.3 % Immature Granulocyte # (Auto) 0.04 0.00-0.02 K/uL Sodium Level 138 136-145 mmol/L Potassium Level 3.3 3.5-5.1 mmol/L Chloride Level 103 98-107 mmol/L Carbon Dioxide Level 31 21-32 mmol/L Anion Gap 4.0 3-11 mmol/L Blood Urea Nitrogen 6 7-18 mg/dl Creatinine 0.45 0.60-1.20 mg/dl Est Creatinine Clear Calc Drug Dose 89.0 ml/min Estimated GFR () 111.2 Estimated GFR (Non- 96.0 BUN/Creatinine Ratio 13.4 10-20 Random Glucose 127 70-99 mg/dl Calcium Level 8.3 8.5-10.1 mg/dl
[2017-05-06] MEDS ORDERED: POTASSIUM CHLORIDE 10 MEQ TABCR PO ONE (11:30)
[2017-05-06 14:51] VITALS: BP 152/79; PULSE 75; TEMP 36.4; O2SAT 94
[2017-05-06] MEDS ORDERED: LAVAGE SOLUTION 4000ML PO SCH (15:00)
[2017-05-06 16:00] VITALS: O2SAT 94
[2017-05-06] MEDS: ONDANSETRON INJ 2 MG/ML 2 ML VIAL IV PRN (18:28)
[2017-05-06 23:33] VITALS: BP 145/61; PULSE 67; TEMP 36.6; O2SAT 92
[2017-05-07] MEDS: METRONIDAZOLE / NSS 500 MG in PREMIXED NSS 100 ML IV SCH ×4 (02:39→21:12)
[2017-05-07] MEDS ORDERED: HALOPERIDOL 1 MG TAB PO PRN (03:45)
[2017-05-07] MEDS ORDERED: HALOPERIDOL LACTATE 5 MG/ML 1 ML VIAL IM PRN (03:45)
[2017-05-07] MEDS: ONDANSETRON INJ 2 MG/ML 2 ML VIAL IV PRN (04:11)
[2017-05-07] MEDS: RANITIDINE IV 50 MG in DEXTROSE 5% 100ML 100 ML IV SCH ×2 (05:05→12:30)
[2017-05-07] MEDS: CIPROFLOXACIN / D5W 400 MG in PREMIXED IN D5W 200 ML IV SCH (05:29)
[2017-05-07] MEDS: HYDROmorphone INJ 0.5 MG/0.5 ML SYR IV PRN ×4 (05:46→21:22)
[2017-05-07 07:28] VITALS: BP 124/62; PULSE 69; TEMP 36.8; O2SAT 94
[2017-05-07 07:44] LABS: BASO % 0.1 %; BASO ABS # 0.01 K/uL (0-0.2); COMPLETE YES; EOS % 0.1 %; HEMATOCRIT 35.3 % (37-47); IG% 0.2 %; LYMPH % 11.6 %; LYMPH ABS # 1.63 K/uL (1.2-3.4); MEAN CELL VOLUME 89.8 fL (80-100); MEAN CORPUSCULAR HEMOGLOBIN 28.8 pg (25-34); MEAN PLATELET VOLUME 9.5 fL (7.4-10.4); MONO % 6.9 %; NEUT % 81.1 %; PLATELET COUNT 233 K/uL (130-400); RED BLOOD COUNT 3.93 M/uL (4.2-5.4); WHITE BLOOD COUNT 14.03 K/uL (4.8-10.8)
[2017-05-07 08:20] LABS: BUN/CREATININE RATIO 11.6 (10-20); CALCIUM 8.2 mg/dl (8.5-10.1); CREATININE 0.57 mg/dl (0.60-1.20); MAGNESIUM 1.6 mg/dl (1.8-2.4); POTASSIUM 2.8 mmol/L (3.5-5.1)
[2017-05-07] MEDS: D5W AND NSS 1,000 ML IV SCH (08:30)
[2017-05-07] MEDS: ATORVASTATIN 40 MG TAB PO SCH (08:31)
[2017-05-07] MEDS: SERTRALINE HCL 100 MG TAB PO SCH (08:31)
[2017-05-07] MEDS: AMLODIPINE BESYLATE 5 MG TAB PO SCH (08:32)
[2017-05-07] MEDS: LISINOPRIL 40 MG TAB PO SCH (08:32)
[2017-05-07] MEDS ORDERED: MAGNESIUM SULFATE 1GM / D5W 1 GM in PREMIXED IN D5W 100 ML IV STA (09:35)
[2017-05-07] MEDS ORDERED: POTASSIUM CHLORIDE 20 MEQ TABCR PO STA (09:35)
[2017-05-07] MEDS: POTASSIUM CHLR 10 MEQ / WTR 10 MEQ IV SCH ×2 (10:04→11:12)
--- NOTE | 2017-05-07 10:13 | Gastroenterology Progress Note ---
Progress Note Date of Service: May 07, 2017 Subjective Pt evaluation today including: conversation w/ patient, physical exam, chart review, lab review, review of studies, review of inpatient medication list Pt awake, alert. She took about 1/2 the prep and is passing liquid brown BMs but tells me that she decided not to undergo colonoscopy, that she doesn't want to and that it isn't needed because the colonoscopy was normal in 2008. When asked about pain she says she had "pain and misery," and places her hands over the entire lower abdomen. She clarifies that she is no longer having any pain - that the pain was prior to admission. Review of Systems Constitutional: No fever Respiratory: + shortness of breath (chronic SOB but does not appear to be in any respiratory stress), No cough Abdomen: + diarrhea (from prep), No pain, No nausea, No vomiting Female : No dysuria Neuro: + memory loss Psych: No depression symptoms Heme: No abnormal bleeding/bruising Endo: No fatigue Medications Current Inpatient Medications Medications (Trade) Dose Ordered Sig/Ashlee Route Start Time Stop Time Status Last Admin Dose Admin Ioversol (Optiray 320) 100 ml UD PRN IV 05/04/17 09:30 05/08/17 09:29 Acetaminophen (Tylenol Tab) 650 mg Q4H PRN PO 05/04/17 12:00 06/03/17 11:59 05/05/17 07:40 650 MG Ciprofloxacin/ Dextrose 400 mg/ Prmx 200 ml @ 100 mls/hr Q12H IV 05/04/17 16:00 05/14/17 15:59 05/07/17 05:29 100 MLS/HR Amlodipine Besylate (Norvasc Tab) 10 mg DAILY PO 05/05/17 09:00 06/04/17 08:59 05/07/17 08:32 10 MG Atenolol (Tenormin Tab) 75 mg BID PO 05/04/17 21:00 06/03/17 20:59 05/07/17 08:31 75 MG Atorvastatin Calcium (Lipitor Tab) 40 mg QAM PO 05/05/17 09:00 06/04/17 08:59 05/07/17 08:31 40 MG Hydroxyzine HCl (Vistaril Tab) 50 mg HSZ PRN PO 05/04/17 13:45 06/03/17 13:44 Levalbuterol (Xopenex 1.25MG/ 3ML Neb) 1.25 mg Q8 PRN INH 05/04/17 13:45 06/03/17 13:44 05/05/17 15:48 1.25 MG Lisinopril (Zestril Tab) 40 mg DAILY PO 05/05/17 09:00 06/04/17 08:59 05/07/17 08:32 40 MG Sertraline HCl (Zoloft Tab) 150 mg DAILY PO 05/05/17 09:00 06/04/17 08:59 05/07/17 08:31 150 MG Gadobutrol (Gadavist) 6.5 mmol UD PRN IV 05/04/17 16:00 05/08/17 15:59 Miscellaneous Information (Order Awaiting Action) 1 ea QS N/A 05/05/17 00:00 06/04/17 00:00 Miscellaneous Information (Order Awaiting Action) 1 ea QS N/A 05/05/17 00:00 06/04/17 00:00 Ranitidine HCl 50 mg/Dextrose 102 ml @ 200 mls/hr Q8H IV 05/05/17 04:00 06/04/17 03:59 05/07/17 05:05 200 MLS/HR Ondansetron HCl (Zofran Inj) 4 mg Q6H PRN IV 05/05/17 10:45 06/04/17 10:44 05/07/17 04:11 4 MG Hydromorphone HCl (Dilaudid Inj) 0.5 mg Q3HWA PRN IV 05/05/17 10:45 05/19/17 10:44 05/07/17 05:46 0.5 MG Haloperidol Lactate (Haldol Inj) 2 mg Q2H PRN IM 05/07/17 03:45 06/06/17 03:44 Haloperidol (Haldol Tab) 2 mg Q4H PRN PO 05/07/17 03:45 06/06/17 03:44 05/07/17 04:25 2 MG Potassium Chloride 100 ml @ 100 mls/hr Q1H IV 05/07/17 09:36 05/07/17 11:35 Magnesium Sulfate 1 gm/Prmx 100 ml @ 100 mls/hr NOW STAT IV 05/07/17 09:35 05/07/17 10:34 Magnesium Oxide (Mag-Ox Tab) 400 mg BID PO 05/07/17 21:00 06/06/17 20:59 Metronidazole 500 mg/Prmx 100 ml @ 100 mls/hr TID IV 05/07/17 14:00 05/13/17 13:59 Potassium Chloride/Sodium Chloride 1,000 ml @ 50 mls/hr Q20H IV 05/07/17 09:45 06/06/17 09:44 Objective Vital Signs Date Time Temp Pulse Resp B/P (MAP) Pulse Ox O2 Delivery O2 Flow Rate FiO2 05/07/17 08:10 Nasal Cannula 3.0 05/07/17 07:28 36.8 69 18 124/62 (82) 94 Nasal Cannula 3.0 05/07/17 00:00 Nasal Cannula 2.0 05/06/17 23:33 36.6 67 16 145/61 (89) 92 Nasal Cannula 2.0 05/06/17 16:00 94 Nasal Cannula 2.0 05/06/17 14:51 36.4 75 16 152/79 (103) 94 2.0 Physical Exam General Appearance: no apparent distress Neck: thyroid normal Respiratory/Chest: + crackles (few, coarse at the bases), + wheezing (scattered , mild) Cardiovascular: regular rate, rhythm, no murmur Abdomen: non tender, soft Extremities: no pedal edema Neurologic/Psych: alert, normal mood/affect, oriented x 3 Skin: no jaundice Laboratory Results Last 24 Hours Test 05/06/17 22:05 05/07/17 07:30 White Blood Count 14.03 K/uL Red Blood Count 3.93 M/uL Hemoglobin 11.3 g/dL Hematocrit 35.3 % Mean Corpuscular Volume 89.8 fL Mean Corpuscular Hemoglobin 28.8 pg Mean Corpuscular Hemoglobin Concent 32.0 g/dl Platelet Count 233 K/uL Mean Platelet Volume 9.5 fL Neutrophils (%) (Auto) 81.1 % Lymphocytes (%) (Auto) 11.6 % Monocytes (%) (Auto) 6.9 % Eosinophils (%) (Auto) 0.1 % Basophils (%) (Auto) 0.1 % Neutrophils # (Auto) 11.37 K/uL Lymphocytes # (Auto) 1.63 K/uL Monocytes # (Auto) 0.97 K/uL Eosinophils # (Auto) 0.02 K/uL Basophils # (Auto) 0.01 K/uL RDW Standard Deviation 41.8 fL RDW Coefficient of Variation 12.8 % Immature Granulocyte % (Auto) 0.2 % Immature Granulocyte # (Auto) 0.03 K/uL Sodium Level 137 mmol/L Potassium Level 2.8 mmol/L Chloride Level 99 mmol/L Carbon Dioxide Level 30 mmol/L Anion Gap 8.0 mmol/L Blood Urea Nitrogen 7 mg/dl Creatinine 0.57 mg/dl Est Creatinine Clear Calc Drug Dose 70.2 ml/min Estimated GFR () 102.9 Estimated GFR (Non- 88.8 BUN/Creatinine Ratio 11.6 Random Glucose 150 mg/dl Calcium Level 8.2 mg/dl Magnesium Level 1.6 mg/dl Assessment and Plan Ms. Liu is a 76 yr old female with a reported hx of Crohn's colitis admitted with RLQ pain, CT suggestive of descending colon wall thickening, perianal infiltration, pancreas lesions suggestive of IPMNs or MCNs vs. dilated duct. Additionally, though no clear evidence of active Crohn's (no diarrhea, no obvious and persistent abdominal pain), she had leukocytosis on arrival at 22, now 13 on Cipro Flagyl and no source of infection has been found. There was blood in the urine sample so possibly a UTI. Plan: 1. Cancel colonoscopy per pt decision. 2. OP GI f/u with Dr. Hahn or Dr. Andrea for f/u IPMNs/MCNs. 3. GI will sign off. I have personally seen and examined the patient with MARGARITO Lynch. Her note reflects my exam and findings. I agree with her impression and plan. Patient did not want colonoscopy so after adding her on for today we had to cancel. Out patient follow up with regular providers. Troy Meade M.D.
[2017-05-07] MEDS: NSS + 20MEQ KCL 1000ML 1,000 ML IV SCH (10:54)
--- NOTE | 2017-05-07 11:22 | Progress Note ---
Internal Med Progress Note Date of Service: May 07, 2017. Provider Documentation: SUBJECTIVE: resting comfortably moved her bowels but refusing colonoscopy today abdominal pain much better afebrile no nausea OBJECTIVE: Vital Signs-as noted below Exam: General-alert and oriented. Not in distress ENT-normal hearing Neck-no neck masses Lungs-cta b/l no wheezing or crackles Heart-s1 and s2 heard regular rate and rhythm, no murmurs Abdomen-soft bowel sounds present mild diffuse tender no distension Extremities no edema no erythema Neuro-alert and oriented moves extremities Lab data as noted below. ASSESSMENT & PLAN: Diarrhea / Abdominal Pain/ Colonic Thickening infection vs inflammation on ciprofloxacin 400 mg IV q12 hours, flagyl 500 mg IV q8 hours bx negative await t stool cx improving? continue abx for now Crohn's Disease flare? CT abdomen is unclear whether there is presence of perianal fistula hx of Crohn disease. Not on any maintenance meds presents with abdominal pain and bloody bowel movements ct scan -inflammatory changes consulted GI- plan for colonoscopy but patient refusing diet as per GI and followup as out patient Anemia acute blood loss? hb 12 to 10.0 hb 11.3 today will f/u labs Electrolyte abnormalities will replace Pancreatic ductal dilatation and cystic lesions in the pancreas on ct scan MRI shows sequela of chronic pancreatitis vs mucinous pancreatic neoplasm f/u GI COPD chronic resp failure On home medications of Ellipta and Levalbuterol Nebs prn on home oxygen History of Stroke without residual weakness on aspirin and plavix which are held for gi bleeding will restart in am if stable Other cardiovascular on atenolol and lisinopril and atorvastatin Psych on sertraline To avoid benzodiazepines as there was concern for overdose as a health problem in last hospital admission in 03/2017 DVT prophylaxis scds DISPOSITION possible d/c in am if stable pt/ot Vital Signs: Date Time Temp Pulse Resp B/P (MAP) Pulse Ox O2 Delivery O2 Flow Rate FiO2 05/07/17 08:10 Nasal Cannula 3.0 05/07/17 07:28 36.8 69 18 124/62 (82) 94 Nasal Cannula 3.0 05/07/17 00:00 Nasal Cannula 2.0 05/06/17 23:33 36.6 67 16 145/61 (89) 92 Nasal Cannula 2.0 05/06/17 16:00 94 Nasal Cannula 2.0 05/06/17 14:51 36.4 75 16 152/79 (103) 94 2.0 Lab Results: Results Past 24 Hours Test 05/06/17 22:05 05/07/17 07:30 Range/Units White Blood Count 14.03 4.8-10.8 K/uL Red Blood Count 3.93 4.2-5.4 M/uL Hemoglobin 11.3 12.0-16.0 g/dL Hematocrit 35.3 37-47 % Mean Corpuscular Volume 89.8 80-100 fL Mean Corpuscular Hemoglobin 28.8 25-34 pg Mean Corpuscular Hemoglobin Concent 32.0 32-36 g/dl Platelet Count 233 130-400 K/uL Mean Platelet Volume 9.5 7.4-10.4 fL Neutrophils (%) (Auto) 81.1 % Lymphocytes (%) (Auto) 11.6 % Monocytes (%) (Auto) 6.9 % Eosinophils (%) (Auto) 0.1 % Basophils (%) (Auto) 0.1 % Neutrophils # (Auto) 11.37 1.4-6.5 K/uL Lymphocytes # (Auto) 1.63 1.2-3.4 K/uL Monocytes # (Auto) 0.97 0.11-0.59 K/uL Eosinophils # (Auto) 0.02 0-0.5 K/uL Basophils # (Auto) 0.01 0-0.2 K/uL RDW Standard Deviation 41.8 36.4-46.3 fL RDW Coefficient of Variation 12.8 11.5-14.5 % Immature Granulocyte % (Auto) 0.2 % Immature Granulocyte # (Auto) 0.03 0.00-0.02 K/uL Sodium Level 137 136-145 mmol/L Potassium Level 2.8 3.5-5.1 mmol/L Chloride Level 99 98-107 mmol/L Carbon Dioxide Level 30 21-32 mmol/L Anion Gap 8.0 3-11 mmol/L Blood Urea Nitrogen 7 7-18 mg/dl Creatinine 0.57 0.60-1.20 mg/dl Est Creatinine Clear Calc Drug Dose 70.2 ml/min Estimated GFR () 102.9 Estimated GFR (Non- 88.8 BUN/Creatinine Ratio 11.6 10-20 Random Glucose 150 70-99 mg/dl Calcium Level 8.2 8.5-10.1 mg/dl Magnesium Level 1.6 1.8-2.4 mg/dl Microbiology Results 05/06/17 C.difficile Toxin B Gene (PCR) - Final, Complete No C. difficile toxin B gene detected 05/06/17 WBC Smear - Final, Resulted 05/06/17 Shiga Toxin Test, Resulted Pending 05/06/17 Stool Culture, Resulted Pending
[2017-05-07 15:53] VITALS: BP 132/64; PULSE 67; TEMP 37; O2SAT 94
[2017-05-07] MEDS ORDERED: CEFTRIAXONE SOD INJ 1 GM in DEXTROSE 5% ADD-VANTAGE 50ML 50 ML IV SCH (16:00)
[2017-05-07 18:00] VITALS: O2SAT 94
[2017-05-07 20:11] VITALS: PULSE 81; O2SAT 95
[2017-05-07] MEDS: LEVALBUTEROL 1.25MG/3ML NEB INH PRN (20:11)
[2017-05-07] MEDS: MAGNESIUM OXIDE 400 MG TAB PO SCH (21:13)
[2017-05-07] MEDS: RANITIDINE HCL 150 MG TAB PO SCH (21:21)
[2017-05-07 21:53] VITALS: BP 155/69; PULSE 80; TEMP 36.7; O2SAT 91
[2017-05-08 00:23] VITALS: BP 126/65; PULSE 65; TEMP 36.8; O2SAT 92
[2017-05-08] MEDS: NSS + 20MEQ KCL 1000ML 1,000 ML IV SCH (04:52)
[2017-05-08] MEDS: HYDROmorphone INJ 0.5 MG/0.5 ML SYR IV PRN (07:31)
[2017-05-08 08:10] LABS: BASO % 0.4 %; BASO ABS # 0.03 K/uL (0-0.2); COMPLETE YES; EOS % 1.6 %; HEMATOCRIT 35.4 % (37-47); IG% 0.4 %; LYMPH % 16.1 %; LYMPH ABS # 1.13 K/uL (1.2-3.4); MEAN CELL VOLUME 90.5 fL (80-100); MEAN CORPUSCULAR HEMOGLOBIN 27.4 pg (25-34); MEAN CORPUSCULAR HGB CONC 30.2 g/dl (32-36); MEAN PLATELET VOLUME 9.8 fL (7.4-10.4); NEUT % 72.5 %; PLATELET COUNT 216 K/uL (130-400); RED BLOOD COUNT 3.91 M/uL (4.2-5.4); WHITE BLOOD COUNT 7.02 K/uL (4.8-10.8)
[2017-05-08 08:14] VITALS: BP 142/78; PULSE 70; TEMP 37; O2SAT 92
[2017-05-08 08:41] LABS: BUN/CREATININE RATIO 17.7 (10-20); CALCIUM 8.1 mg/dl (8.5-10.1); CREATININE 0.4 mg/dl (0.60-1.20); MAGNESIUM 1.8 mg/dl (1.8-2.4); POTASSIUM 3.3 mmol/L (3.5-5.1)
[2017-05-08] MEDS: SERTRALINE HCL 100 MG TAB PO SCH (08:49)
[2017-05-08] MEDS: METRONIDAZOLE / NSS 500 MG in PREMIXED NSS 100 ML IV SCH ×2 (08:49→13:21)
[2017-05-08] MEDS: MAGNESIUM OXIDE 400 MG TAB PO SCH (08:49)
[2017-05-08] MEDS: AMLODIPINE BESYLATE 5 MG TAB PO SCH (08:49)
[2017-05-08] MEDS: ATORVASTATIN 40 MG TAB PO SCH (08:49)
[2017-05-08] MEDS: RANITIDINE HCL 150 MG TAB PO SCH (08:50)
[2017-05-08] MEDS: LISINOPRIL 40 MG TAB PO SCH (08:50)
[2017-05-08] MEDS ORDERED: POTASSIUM CHLORIDE 20 MEQ TABCR PO STA (12:42)
[2017-05-08] MEDS ORDERED: CEFD300C2 PO ×2 (12:51→12:52)
[2017-05-08] MEDS ORDERED: METR-163 PO (12:51)
[2017-05-08] MEDS ORDERED: LCTX PO (12:52)
--- NOTE | 2017-05-08 12:54 | Discharge Instructions ---
Discharge Instructions Date of Service May 08, 2017. Admission Reason for Admission: Abdominal Pain, Crohn's Disease, Diarrhea Discharge Discharge Diagnosis / Problem: abdominal mpain, diarrhea, UTI? Discharge Goals Goal(s): Decrease discomfort, Improve function Activity Recommendations Activity Limitations: resume your previous activity . Instructions / Follow-Up Instructions / Follow-Up FOLLOWUP WITH FAMILY DOCTOR ON May AT 1:45PM REFERRAL TO GI WITH Dr. Hahn or Dr. Andrea for f/u IPMNs/MCNs AND FOR COLONOSCOPY WITH FAMILY DOCTOR REFERRAL. Current Hospital Diet Patient's current hospital diet: AHA Diet (Heart Healthy) Discharge Diet Recommended Diet: AHA Diet (Heart Healthy) Pending Studies Studies pending at discharge: no Medical Emergencies . Who to Call and When: Medical Emergencies: If at any time you feel your situation is an emergency, please call 911 immediately. . Non-Emergent Contact Non-Emergency issues call your: Primary Care Provider . . "Provider Documentation" section prepared by Lukasz Lugo. . VTE Core Measure Inpt VTE Proph given/why not?: SCD's
[2017-05-08 13:34] VITALS: BP 142/78; PULSE 70; TEMP 37; O2SAT 92
--- NOTE | 2017-05-08 18:25 | Progress Note ---
Internal Med Progress Note Date of Service: May 08, 2017. Provider Documentation: SUBJECTIVE: resting comfortably moved her bowels today refused colonoscopy yesterday afebrile has some abdominal discomfort but ok for discharge OBJECTIVE: Vital Signs-as noted below Exam: General-alert and oriented. Not in distress ENT-normal hearing Neck-no neck masses Lungs-cta b/l no wheezing or crackles Heart-s1 and s2 heard regular rate and rhythm, no murmurs Abdomen-soft bowel sounds present mild lower abdomen tender no distension Extremities no edema no erythema Neuro-alert and oriented moves extremities Lab data as noted below. ASSESSMENT & PLAN: Diarrhea / Abdominal Pain/ Colonic Thickening infection vs inflammation on ciprofloxacin 400 mg IV q12 hours, flagyl 500 mg IV q8 hours c diff negative and stool cx negative improving d/humberto to f/u with p[cp Crohn's Disease flare? CT abdomen is unclear whether there is presence of perianal fistula hx of Crohn disease. Not on any maintenance meds presents with abdominal pain and bloody bowel movements ct scan -inflammatory changes consulted GI- plan for colonoscopy but patient refusing diet as per GI and followup as out patient Anemia acute blood loss? hb 12 to 10.0 hb 10.7 today will f/u labs Electrolyte abnormalities replaced Pancreatic ductal dilatation and cystic lesions in the pancreas on ct scan MRI shows sequela of chronic pancreatitis vs mucinous pancreatic neoplasm f/u GI with pcp referral UTI? d/humberto on omnicef COPD chronic resp failure On home medications of Ellipta and Levalbuterol Nebs prn on home oxygen History of Stroke without residual weakness on aspirin and plavix which are held for gi bleeding restarted at discharge Other cardiovascular on atenolol and lisinopril and atorvastatin Psych on sertraline To avoid benzodiazepines as there was concern for overdose as a health problem in last hospital admission in 03/2017 Discharged home to f/u with pcp Vital Signs: Date Time Temp Pulse Resp B/P (MAP) Pulse Ox O2 Delivery O2 Flow Rate FiO2 05/08/17 13:34 37.0 70 16 92 Room Air 05/08/17 08:14 37.0 70 16 142/78 (99) 92 Room Air 05/08/17 08:10 Nasal Cannula 2.0 05/08/17 00:23 36.8 65 18 126/65 (85) 92 2.0 05/08/17 00:00 Nasal Cannula 3.0 05/07/17 21:53 36.7 80 18 155/69 (97) 91 Nasal Cannula 3.0 05/07/17 20:11 81 18 95 Nasal Cannula 3.0 Lab Results: Results Past 24 Hours Test 05/08/17 07:38 Range/Units White Blood Count 7.02 4.8-10.8 K/uL Red Blood Count 3.91 4.2-5.4 M/uL Hemoglobin 10.7 12.0-16.0 g/dL Hematocrit 35.4 37-47 % Mean Corpuscular Volume 90.5 80-100 fL Mean Corpuscular Hemoglobin 27.4 25-34 pg Mean Corpuscular Hemoglobin Concent 30.2 32-36 g/dl Platelet Count 216 130-400 K/uL Mean Platelet Volume 9.8 7.4-10.4 fL Neutrophils (%) (Auto) 72.5 % Lymphocytes (%) (Auto) 16.1 % Monocytes (%) (Auto) 9.0 % Eosinophils (%) (Auto) 1.6 % Basophils (%) (Auto) 0.4 % Neutrophils # (Auto) 5.09 1.4-6.5 K/uL Lymphocytes # (Auto) 1.13 1.2-3.4 K/uL Monocytes # (Auto) 0.63 0.11-0.59 K/uL Eosinophils # (Auto) 0.11 0-0.5 K/uL Basophils # (Auto) 0.03 0-0.2 K/uL RDW Standard Deviation 43.1 36.4-46.3 fL RDW Coefficient of Variation 13.1 11.5-14.5 % Immature Granulocyte % (Auto) 0.4 % Immature Granulocyte # (Auto) 0.03 0.00-0.02 K/uL Sodium Level 141 136-145 mmol/L Potassium Level 3.3 3.5-5.1 mmol/L Chloride Level 105 98-107 mmol/L Carbon Dioxide Level 29 21-32 mmol/L Anion Gap 7.0 3-11 mmol/L Blood Urea Nitrogen 7 7-18 mg/dl Creatinine 0.40 0.60-1.20 mg/dl Est Creatinine Clear Calc Drug Dose 100.1 ml/min Estimated GFR () 115.6 Estimated GFR (Non- 99.8 BUN/Creatinine Ratio 17.7 10-20 Random Glucose 93 70-99 mg/dl Calcium Level 8.1 8.5-10.1 mg/dl Magnesium Level 1.8 1.8-2.4 mg/dl
--- NOTE | 2017-05-08 18:37 | Discharge Summary ---
Discharge Summary Date of Service May 08, 2017. Discharge Summary Admission Date: May 04, 2017 at 12:38 Discharge Date: May 08, 2017 Discharge Disposition: Home Principal Diagnosis: abdominal pain/diarrhea Crohn's flare? UTI? Secondary Diagnoses/Problems: 1) COPD (chronic obstructive pulmonary disease) Status: Chronic (2) COPD (chronic obstructive pulmonary disease) Status: Chronic (3) Crohn's disease Status: Chronic (4) Depression Status: Chronic (5) Ectopic Status: Chronic (6) HLD (hyperlipidemia) Status: Chronic (7) HTN (hypertension) Status: Chronic (8) Osteoporosis Status: Chronic Procedures: ct abd/pelvis: 1. Apparent wall thickening of the descending colon. Although this could be due to underdistention, this is suspicious for pathologic wall thickening which could be consistent with active inflammation of the colon in the setting of inflammatory bowel disease. No evidence of penetrating or stricturing disease. 2. Suggestion of infiltration in the perianal region. Correlate clinically for possible perianal fistula. Notably, the examination was not tailored for a perianal fistula assessment. 3. Mild prominence of the extrahepatic bile duct and interval increase in pancreatic ductal dilatation. No walter mass at the pancreatic head. Evidence of pancreas divisum. This could be further evaluated with MRCP if clinically indicated, however, a benign stricture is the favored etiology. 4. Apparent cystic lesions in the pancreas are incompletely evaluated. These could represent focal dilatation of the pancreatic duct, however, these may represent side branch intraductal papillary mucinous neoplasms or mucinous cysts. If there is clinical concern, further evaluation with dedicated contrast enhanced pancreas MR could be obtained. mri abdomen: 1. The previously identified cystic appearing regions at the uncinate process and distal most pancreatic tail are consistent with side branch dilatation. No focal masslike configuration. No solid pancreatic neoplasm. Given the presence of diffuse parenchymal atrophy, main and side branch pancreatic ductal dilatation is felt to most likely reflect sequela of chronic pancreatitis. Less likely differential considerations include main duct intraductal papillary mucinous neoplasm with resultant side duct dilatation. In the absence of a clinical history of chronic pancreatitis, 6 months to 12 month follow-up contrast enhanced MR is recommended for stability. 2. Extra hepatic biliary ductal dilatation without evidence of an obstructing mass or calculus. 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 3. Evidence of chronic inflammatory changes of the descending colon through the proximal rectum. An acute inflammatory component is likely present. This could be compatible with inflammatory bowel disease. Consultations: GI Medication Reconciliation New Medications: Cefdinir (Omnicef) 300 Mg Cap 300 MG PO Q12H for 6 Days, #12 CAP Lactobacillus Acidophilus (Lactinex) Tab 2 TAB PO BID, #40 TAB Continued Medications: Albuterol Sulfate (Proair Respiclick) 108 Mcg/Act Aer 2 PUFF INH Q4 PRN for SOB/Wheezing Amlodipine (Norvasc) 10 Mg Tab 10 MG PO DAILY, TAB Aspirin (Aspirin EC Low Dose) 81 Mg Ectab 81 MG PO QAM for 30 Days, #30 Atenolol (Tenormin) 50 Mg Tab 75 MG PO BID, 0 Refills Atorvastatin (Atorvastatin Calcium) 40 Mg Tab 40 MG PO QAM for 30 Days, #30 TAB 2 Refills Clopidogrel Bisulfate (Clopidogrel) 75 Mg Tab 75 MG PO QAM for 30 Days, #30 TAB 2 Refills Docusate Sodium (Docusate Sodium) 100 Mg Cap 100 MG PO BID, #60 CAP Fish Oil ([place]-3) 1 Ea Cap 1 CAP PO DAILY Fluticasone Furoate (Inhalatio (Arnuity Ellipta) 100 Mcg/Act Inh 1 PUFF PO DAILY Gabapentin (Gabapentin) 300 Mg Cap 300 MG PO TID for 30 Days, #90 CAP 5 Refills Home O2 Therapy (Oxygen) Gas 2.5 LITERS NA CONTINOUS Hydroxyzine HCl (Hydroxyzine HCl) 25 Mg Tab 50 MG PO HSZ PRN for Insomnia, #20 TAB Levalbuterol (Levalbuterol HCl) 1.25 Mg/3 Ml Nebu 1.25 MG NEB Q8 PRN for Wheezing Lisinopril (Zestril) 40 Mg Tab 40 MG PO DAILY, 0 Refills Loperamide Hcl (Imodium) 2 Mg Cap 2 MG PO DAILY PRN for Diarrhea, CAP Multivitamin (Multivitamin) Tab 1 TAB PO DAILY Sertraline (Zoloft) 100 Mg Tab 150 MG PO DAILY, #45 TAB 0 Refills Umeclidinium-Vilanterol (Anoro Ellipta 62.5-25 Mcg/INH) 1 Aer Aer 1 PUFF PO DAILY Admission Information HPI (per Admitting provider): This is a 76 year old F with History of Stroke without residual weakness, history of COPD, Crohn's disease who is not on maintenance medication for prevention of Crohn's flares, with diarrhea starting 1 day ago yesterday after eating at a restaurant with 2 episodes of diarrhea that was brown and watery with symptoms of lower abdominal pain. Patient denies fevers at home and is afebrile in the ED however WBC is 22,000. In the ED she was started on Ciprofloxacin 400 g IV and Flagyl [address] abdomen was performed with ED provider assessment treating for infectious process as there thickening of descending colon. However there are also multiple other findings on CT abdomen such as increase in pancreatic ductal dilatation and cystic lesions in the pancreas with radiological recommendation of MRI / MRCP for further evaluation. I discussed preliminary findings with patient and she reported some history of abdominal imaging in the past that was benign however these reports are not available on electronic medical records. Patient also reports code status to be DNR and this discussion took place withe presence of her son (contact number , ) Physical Exam (per Admitting): General Appearance: no apparent distress Head: normocephalic, atraumatic Eyes: normal inspection, EOMI, sclerae normal ENT: normal ENT inspection, hearing grossly normal, pharynx normal Neck: supple, no JVD Respiratory/Chest: chest non-tender, lungs clear, normal breath sounds, no respiratory distress, no accessory muscle use Cardiovascular: regular rate, rhythm, no edema, no JVD, normal peripheral pulses Abdomen/GI: normal bowel sounds, soft, no pulsatile mass, + tenderness ( tenderness on lower abdomen, no guarding) Back: normal inspection, no CVA tenderness, no muscle spasm, normal range of motion Extremities/Musculoskelatal: normal inspection, no calf tenderness, normal capillary refill, no pedal edema, normal range of motion, non-tender Neurologic/Psych: no motor/sensory deficits, alert, normal mood/affect, oriented x 3 Skin: normal color, warm/dry Hospital Course Diarrhea / Abdominal Pain/ Colonic Thickening infection vs inflammation on ciprofloxacin 400 mg IV q12 hours, flagyl 500 mg IV q8 hours c diff negative and stool cx negative improving d/humberto to f/u with p[cp Crohn's Disease flare? CT abdomen is unclear whether there is presence of perianal fistula hx of Crohn disease. Not on any maintenance meds presents with abdominal pain and bloody bowel movements ct scan -inflammatory changes consulted GI- plan for colonoscopy but patient refusing diet as per GI and followup as out patient Anemia acute blood loss? hb 12 to 10.0 hb 10.7 today will f/u labs Electrolyte abnormalities replaced Pancreatic ductal dilatation and cystic lesions in the pancreas on ct scan MRI shows sequela of chronic pancreatitis vs mucinous pancreatic neoplasm f/u GI with pcp referral UTI? d/humberto on omnicef COPD chronic resp failure On home medications of Ellipta and Levalbuterol Nebs prn on home oxygen History of Stroke without residual weakness on aspirin and plavix which are held for gi bleeding restarted at discharge Other cardiovascular on atenolol and lisinopril and atorvastatin Psych on sertraline To avoid benzodiazepines as there was concern for overdose as a health problem in last hospital admission in 03/2017 Discharged home to f/u with pcp Total time spent on discharge = 35MINUTES This includes examination of the patient, discharge planning, medication reconciliation, and communication with other providers. Discharge Instructions Discharge Instructions Date of Service May 08, 2017. Admission Reason for Admission: Abdominal Pain, Crohn's Disease, Diarrhea Discharge Discharge Diagnosis / Problem: abdominal mpain, diarrhea, UTI? Discharge Goals Goal(s): Decrease discomfort, Improve function Activity Recommendations Activity Limitations: resume your previous activity . Instructions / Follow-Up Instructions / Follow-Up FOLLOWUP WITH FAMILY DOCTOR ON May AT 1:45PM REFERRAL TO GI WITH Dr. Hahn or Dr. Andrea for f/u IPMNs/MCNs AND FOR COLONOSCOPY WITH FAMILY DOCTOR REFERRAL. Current Hospital Diet Patient's current hospital diet: AHA Diet (Heart Healthy) Discharge Diet Recommended Diet: AHA Diet (Heart Healthy) Pending Studies Studies pending at discharge: no Medical Emergencies . Who to Call and When: Medical Emergencies: If at any time you feel your situation is an emergency, please call 911 immediately. . Non-Emergent Contact Non-Emergency issues call your: Primary Care Provider . . "Provider Documentation" section prepared by Lukasz Lugo. . VTE Core Measure Inpt VTE Proph given/why not?: SCD's
[2017-05-08 19:34] LABS: O&P GIARDIA AG NOT DETECTED (NOT DETECTED)
== END 2017-05-08 14:31 | disposition home or self-care (01) | DRG 386 ==
LOC: EDBD 08:55 → C.EDA 08:57 → C.MS2W 12:38 → ENRESERV 13:05
PROVIDERS: ADMIT Hospitalist; ATTEND Internal Medicine
DX: K50.80 Crohn's disease of both small and large intestine without complications (principal); N39.0 Urinary tract infection, site not specified; D62 Acute posthemorrhagic anemia; J96.10 Chronic respiratory failure, unspecified whether with hypoxia or hypercapnia; K86.1 Other chronic pancreatitis; Q45.3 Other congenital malformations of pancreas and pancreatic duct; K86.2 Cyst of pancreas; K86.89 Other specified diseases of pancreas; E87.8 Other disorders of electrolyte and fluid balance, not elsewhere classified; J44.9 Chronic obstructive pulmonary disease, unspecified; I10 Essential (primary) hypertension; E78.5 Hyperlipidemia, unspecified; M81.0 Age-related osteoporosis without current pathological fracture; F32.9 Major depressive disorder, single episode, unspecified; Z53.29 Procedure and treatment not carried out because of patient's decision for other reasons; Z66 Do not resuscitate; Z99.81 Dependence on supplemental oxygen; Z86.73 Personal history of transient ischemic attack (TIA), and cerebral infarction without residual deficits; Z87.891 Personal history of nicotine dependence; Z79.82 Long term (current) use of aspirin; Z79.02 Long term (current) use of antithrombotics/antiplatelets; Z79.51 Long term (current) use of inhaled steroids; Z79.899 Other long term (current) drug therapy

== ENCOUNTER 2017-12-11 13:30 | Emergency (ER) | payer OTHER ==
[~2017-12-11] VITALS: Ht 162.6 cm; Wt 58.5 kg
[~2017-12-11 13:30] MED LIST changes: +CEFD300C2 PO; +GABA-1219 PO; -GABA1CAP4 PO
[2017-12-11 13:37] VITALS: TEMP 36.8; Ht 162.6 cm; Wt 58.5 kg
--- NOTE | 2017-12-11 13:52 | EMERGENCY ROOM VISIT NOTE ---
History First contact with patient: 13:31 Chief Complaint: OTHER COMPLAINT Stated Complaint: POSSIBLE OVERDOSE History of Present Illness The patient is a 77 year old female who presents to the Emergency Room with complaints of previous stroke, mild cognitive impairment, chronic back pain, chronic respiratory failure on 3L O2 constantly, Crohns disease, history of suicidal attempt (03/2017) with hallucinations and unintentional drug intake. She reports she usually takes 2 x trazodone tablets and 1 x hydroxyzine tablet, but yesterday accidentally took 2 x hydroxyzine tablets and 1 x trazodone tablets. She reports after this she just felt very sleepy. She also noticed she was seeing her but knew that was not really him. She reports in the last few years she has had six episodes of hallucinations of seeing her and knows they are not real. She denied any chest pain or abdominal pain. She reports her son was concerned she may have caused an issue with her liver, so recommended she come to the Emergency Department for evaluation. She currently denies any concerns. She reports she thought trazodone was for pain initially but feels it is not a good pain medication. She reports she tends to get back in her lower back and down her right leg but it is actually fine right now and denies any need for pain medication. The patient's son also discussed with the nurse that he typically makes the patient's pill box, and lately her medications have been running out much sooner than they should be, sometimes within 8 days. He has concerns about intentional overdose. He has contacted the [facility] multiple times. She has refused being placed in an assisted living facility and reports she likes being in the independent living. Review of Systems See HPI for pertinent positives & negatives. A total of 10 systems reviewed and were otherwise negative. Past Medical/Surgical History Medical Problems: (1) Anxiety disorder, unspecified (2) COPD (chronic obstructive pulmonary disease) (3) COPD (chronic obstructive pulmonary disease) (4) Crohn's disease (5) Depression (6) Ectopic (7) History of CVA (cerebrovascular accident) (8) HLD (hyperlipidemia) (9) HTN (hypertension) (10) Major depressive disorder, recurrent severe without psychotic features (11) Osteoporosis (12) Right sided weakness Surgical Problems: (1) H/O colonoscopy (2) History of cataract surgery (3) History of esophagogastroduodenoscopy (EGD) (4) S/P laser trabeculoplasty of eye Family History FH: cancer FH: gallbladder disease FH: lung disease Kidney stones Social History Smoking Status: Former Smoker (Stopped smoking 10 years ago) Alcohol Use: none Drug Use: none Marital Status: ( 10 years ago) Housing Status: assisted living (Lives in Assisted Living at [facility]) Occupation Status: retired (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[employer], 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.), other Current/Historical Medications Scheduled Amlodipine (Norvasc), 10 MG PO DAILY Aspirin (Aspirin EC Low Dose), 81 MG PO QAM Atenolol (Tenormin), 75 MG PO BID Atorvastatin (Lipitor), 40 MG PO QAM Fish Oil ([place]-3), 1 CAP PO DAILY Fluticasone Furoate (Inhalatio (Arnuity Ellipta), 1 PUFF PO DAILY Gabapentin (Gabapentin), 300 MG PO TID Home O2 Therapy (Oxygen), 2.5 LITERS NA CONTINOUS Lisinopril (Zestril), 40 MG PO DAILY Multivitamin (Multivitamin), 1 TAB PO DAILY Potassium Chloride (Micro-K Ext Rel), 20 MEQ PO DAILY Sertraline (Zoloft), 150 MG PO DAILY Umeclidinium-Vilanterol (Anoro Ellipta 62.5-25 Mcg/INH), 1 PUFF PO DAILY Scheduled PRN Albuterol Sulfate (Proair Respiclick), 2 PUFF INH Q4 PRN for SOB/Wheezing Hydroxyzine HCl (Hydroxyzine HCl), 50 MG PO HSZ PRN for Insomnia Levalbuterol (Levalbuterol HCl), 1.25 MG NEB Q8 PRN for Wheezing Loperamide Hcl (Imodium), 2 MG PO DAILY PRN for Diarrhea Allergies NKDA Physical Exam Vital Signs Date Time Temp Pulse Resp B/P (MAP) Pulse Ox O2 Delivery O2 Flow Rate FiO2 12/11/17 16:25 62 18 163/78 95 12/11/17 15:55 69 18 181/85 96 Nasal Cannula 3.0 12/11/17 14:28 96 Nasal Cannula 3.0 12/11/17 13:37 36.8 76 16 175/85 94 Nasal Cannula 3.0 Physical Exam GENERAL: Awake, alert, well-appearing, thin, in no acute distress HENT: Normocephalic, atraumatic. Oropharynx unremarkable. EYES: Normal conjunctiva. Sclera non-icteric. NECK: Supple. No nuchal rigidity. FROM. No JVD. RESPIRATORY: Clear to auscultation. CARDIAC: Regular rate, normal rhythm. Extremities warm and well perfused. Pulses equal. ABDOMEN: Soft, non-distended. No tenderness to palpation. No rebound or guarding. No masses. MUSCULOSKELETAL: Chest examination reveals no tenderness. The back is symmetrical on inspection without obvious abnormality. There is no CVA tenderness to palpation. No joint edema. LOWER EXTREMITIES: Calves are equal size bilaterally and non-tender. No edema. No discoloration. NEURO: Normal sensorium. No sensory or motor deficits noted. Alert and oriented x 3. SKIN: No rash or jaundice noted. Medical Decision & Procedures Laboratory Results 12/11/17 14:40 Red Blood Count 4.07, Mean Corpuscular Volume 88.7, Mean Corpuscular Hemoglobin 28.7, Mean Corpuscular Hemoglobin Concent 32.4, Mean Platelet Volume 10.3, Neutrophils (%) (Auto) 72.9, Lymphocytes (%) (Auto) 15.9, Monocytes (%) (Auto) 9.7, Eosinophils (%) (Auto) 1.0, Basophils (%) (Auto) 0.4, Neutrophils # (Auto) 5.17, Lymphocytes # (Auto) 1.13, Monocytes # (Auto) 0.69, Eosinophils # (Auto) 0.07, Basophils # (Auto) 0.03 12/11/17 14:40 Test 12/11/17 14:31 12/11/17 14:40 Urine Color YELLOW Urine Appearance CLEAR (CLEAR) Urine pH 6.5 (4.5-7.5) Urine Specific [place] 1.022 (1.000-1.030) Urine Protein TRACE (NEG) Urine Glucose (UA) NEG (NEG) Urine Ketones NEG (NEG) Urine Occult Blood NEG (NEG) Urine Nitrite NEG (NEG) Urine Bilirubin NEG (NEG) Urine Urobilinogen NEG (NEG) Urine Leukocyte Esterase NEG (NEG) Urine WBC (Auto) 1-5 /hpf (0-5) Urine RBC (Auto) 0-4 /hpf (0-4) Urine Hyaline Casts (Auto) 1-5 /lpf (0-5) Urine Epithelial Cells (Auto) >30 /lpf (0-5) Urine Bacteria (Auto) NEG (NEG) Urine Renal Epithelial Cells 0-5 /lpf (0-5) White Blood Count 7.10 K/uL (4.8-10.8) Red Blood Count 4.07 M/uL (4.2-5.4) Hemoglobin 11.7 g/dL (12.0-16.0) Hematocrit 36.1 % (37-47) Mean Corpuscular Volume 88.7 fL (80-100) Mean Corpuscular Hemoglobin 28.7 pg (25-34) Mean Corpuscular Hemoglobin Concent 32.4 g/dl (32-36) Platelet Count 258 K/uL (130-400) Mean Platelet Volume 10.3 fL (7.4-10.4) Neutrophils (%) (Auto) 72.9 % Lymphocytes (%) (Auto) 15.9 % Monocytes (%) (Auto) 9.7 % Eosinophils (%) (Auto) 1.0 % Basophils (%) (Auto) 0.4 % Neutrophils # (Auto) 5.17 K/uL (1.4-6.5) Lymphocytes # (Auto) 1.13 K/uL (1.2-3.4) Monocytes # (Auto) 0.69 K/uL (0.11-0.59) Eosinophils # (Auto) 0.07 K/uL (0-0.5) Basophils # (Auto) 0.03 K/uL (0-0.2) RDW Standard Deviation 45.1 fL (36.4-46.3) RDW Coefficient of Variation 13.8 % (11.5-14.5) Immature Granulocyte % (Auto) 0.1 % Immature Granulocyte # (Auto) 0.01 K/uL (0.00-0.02) Anion Gap 7.0 mmol/L (3-11) Est Creatinine Clear Calc Drug Dose 37.9 ml/min Estimated GFR () 59.2 Estimated GFR (Non- 51.1 BUN/Creatinine Ratio 21.3 (10-20) Calcium Level 8.6 mg/dl (8.5-10.1) Magnesium Level 2.4 mg/dl (1.8-2.4) Total Bilirubin 0.2 mg/dl (0.2-1) Aspartate Amino Transf (AST/SGOT) 24 U/L (15-37) Alanine Aminotransferase (ALT/SGPT) 25 U/L (12-78) Alkaline Phosphatase 99 U/L (45-117) Troponin I < 0.015 ng/ml (0-0.045) Total Protein 7.6 gm/dl (6.4-8.2) Albumin 4.3 gm/dl (3.4-5.0) Globulin 3.3 gm/dl (2.5-4.0) Albumin/Globulin Ratio 1.3 (0.9-2) Medications Administered Medications (Trade) Dose Ordered Sig/Ashlee Route Start Time Stop Time Status Last Admin Dose Admin Potassium Chloride (Klor-Con Tab) 40 meq NOW STAT PO 12/11/17 15:30 12/11/17 15:31 DC 12/11/17 15:54 40 MEQ ECG Per My Interpretation Indication: altered mental status Rate (beats per minute): 61 Rhythm: normal sinus Findings: no acute ischemic change Change: no significant change ED Course 13:40: I evaluated the patient in room B11B. A complete history and physical were performed. 13:50: I discussed the case with Dr. Bowens. I ordered a CBC, CMP, EKG, Saline lock, CT head, Urine cath w/microscopy. 14:30: Dr Bowens also evaluated the patient. 15:15: I discussed the results with the patient and her son. She was advised to take 5 days of potassium supplementation. 15:20: The RN told me the patient's son told her his concerns about her potentially taking more of her medications than what is prescribed. I discussed this with Case who looked into their case. 16:00: Case Mx RN discussed with the patient's son the options for her to get further care at home. They agreed with the plan and she was discharged back to [facility] in good condition. Medical Decision 77 yo F who presents with hallucinations and fatigue - differential includes: electrolyte abnormality, sepsis, urinary tract infection, pneumonia, polypharmacy, dementia. The patient had an IV placed and labs drawn. Her CXR and UA were unremarkable for infection. Her CT head was negative for an acute stroke. Her labwork was unremarkable apart from a potassium of 3.0. She was given PO potassium supplementation and a Rx for 5 days of supplements. The patients son was concerned about potential intentional overdose. I discussed this with case mx RN who spoke to the patients son privately - see her note for further details. The patient was discharged back to [facility] in good condition. Impression Primary Impression: Polypharmacy Additional Impression: Hypokalemia Departure Information Dispostion Home / Self-Care Condition GOOD Prescriptions Potassium Chloride (Micro-K Ext Rel) 10 Meq Capcr 20 MEQ PO DAILY for 5 Days, #10 CAP Prov: Manda Guerrero MD 12/11/17 Referrals Jose Juan Alejandra III, M.D. (PCP) Patient Instructions My [facility] Problem Qualifiers
--- NOTE | 2017-12-11 14:13 | DIAGNOSTIC IMAGING REPORT ---
CHEST ONE VIEW PORTABLE CLINICAL HISTORY: 77 years-old Female presenting with CONFUSION, ?PNA. TECHNIQUE: Portable upright AP view of the chest was obtained. COMPARISON: 05/04/2017. FINDINGS: Atherosclerosis of the aortic arch. Cardiac silhouette normal in size. Heterogeneity of lung parenchyma with relative radiolucency in the upper lobes. No significant hyperinflation. No focal opacity. No large effusion or pneumothorax. Surgical clips project over the right midlung. Osseous structures normal. Upper abdomen normal. IMPRESSION: 1. No acute cardiopulmonary disease. 2. Heterogeneity of lung parenchyma with relative radiolucency in the upper lobes could suggest underlying emphysema. Electronically signed by: Loki Suero M.D. 12/11/2017 2:12 PM Dictated Date/Time: 12/11/2017 2:11 PM
[2017-12-11 14:28] VITALS: O2SAT 96
--- NOTE | 2017-12-11 14:38 | EMERGENCY ROOM VISIT NOTE ---
ED Visit Note First contact with patient: 13:31 Resident Physician Supervision Note: I interviewed and examined the patient. Discussed with Dr. Guerrero and agree with findings and plan as documented in the note. Any exceptions or clarifications are listed here: [None] Documented By: Markus Bowens
--- NOTE | 2017-12-11 15:02 | DIAGNOSTIC IMAGING REPORT ---
CT HEAD WITHOUT CONTRAST (CT) CLINICAL HISTORY: Confusion. History of frontal strokes. COMPARISON STUDY: 03/29/2017 TECHNIQUE: Axial CT of the brain is performed from the vertex to the skull base. IV contrast was not administered for this examination. A dose lowering technique was utilized adhering to the principles of ALARA. CT DOSE: 1228.53 mGy.cm FINDINGS: No intra or extra-axial mass lesions are visualized. There is no CT evidence of acute cortical infarction. There is no evidence of midline shift. There is no acute hemorrhage. No calvarial fractures are visualized. There are patchy white matter hypodensities likely on a small vessel basis. There is an old right thalamic lacunar infarct. There are old lacunar infarcts within the left basal ganglia. There is no evidence of pathologic ventricular dilatation. There is no evidence of acute sinusitis IMPRESSION: No acute intracranial findings Electronically signed by: Travis Garnica M.D. 12/11/2017 3:00 PM Dictated Date/Time: 12/11/2017 2:59 PM
[2017-12-11 15:04] LABS: BASO % 0.4 %; BASO ABS # 0.03 K/uL (0-0.2); EOS ABS # 0.07 K/uL (0-0.5); HEMATOCRIT 36.1 % (37-47); HEMOGLOBIN 11.7 g/dL (12.0-16.0); IG# 0.01 K/uL (0.00-0.02); LYMPH % 15.9 %; LYMPH ABS # 1.13 K/uL (1.2-3.4); MEAN CELL VOLUME 88.7 fL (80-100); MEAN CORPUSCULAR HEMOGLOBIN 28.7 pg (25-34); MEAN CORPUSCULAR HGB CONC 32.4 g/dl (32-36); MEAN PLATELET VOLUME 10.3 fL (7.4-10.4); MONO % 9.7 %; MONO ABS # 0.69 K/uL (0.11-0.59); NEUT % 72.9 %; NEUT ABS # 5.17 K/uL (1.4-6.5); PLATELET COUNT 258 K/uL (130-400); RED CELL DISTRIBUTION WIDTH CV 13.8 % (11.5-14.5); RED CELL DISTRIBUTION WIDTH SD 45.1 fL (36.4-46.3)
[2017-12-11 15:26] LABS: ALBUMIN 4.3 gm/dl (3.4-5.0); ALT/SGPT 25 U/L (12-78); AST/SGOT 24 U/L (15-37); BLOOD UREA NITROGEN 22 mg/dl (7-18); CALCIUM 8.6 mg/dl (8.5-10.1); CARBON DIOXIDE 26 mmol/L (21-32); CREATININE 1.04 mg/dl (0.60-1.20); GLUCOSE 104 mg/dl (70-99); SODIUM 143 mmol/L (136-145)
[2017-12-11] MEDS ORDERED: POTASSIUM CHLORIDE 20 MEQ TABCR PO STA (15:30)
[2017-12-11 15:31] LABS: ALKALINE PHOSPHATASE 99 U/L (45-117); TOTAL PROTEIN 7.6 gm/dl (6.4-8.2)
[2017-12-11] MEDS ORDERED: POTA10CA28 PO (15:40)
[2017-12-11] MEDS ORDERED: POTASSIUM CHLORIDE 10 MEQ TABCR ONE (15:52)
[2017-12-11 16:25] VITALS: BP 163/78; PULSE 62; O2SAT 95
== END 2017-12-11 16:26 | disposition home or self-care (01) ==
LOC: C.EDB 13:30 → EDBD 13:30 → C.EDB 16:26
DX: R44.3 Hallucinations, unspecified (principal); R53.83 Other fatigue; E87.6 Hypokalemia; Z86.73 Personal history of transient ischemic attack (TIA), and cerebral infarction without residual deficits; J96.10 Chronic respiratory failure, unspecified whether with hypoxia or hypercapnia; Z99.81 Dependence on supplemental oxygen; F33.2 Major depressive disorder, recurrent severe without psychotic features; M81.0 Age-related osteoporosis without current pathological fracture; F41.9 Anxiety disorder, unspecified; E78.5 Hyperlipidemia, unspecified; I10 Essential (primary) hypertension; K50.90 Crohn's disease, unspecified, without complications; J44.9 Chronic obstructive pulmonary disease, unspecified; Z91.5 Personal history of self-harm; Z87.59 Personal history of other complications of pregnancy, childbirth and the puerperium; Z98.49 Cataract extraction status, unspecified eye; Z87.891 Personal history of nicotine dependence; Z98.890 Other specified postprocedural states; Z84.1 Family history of disorders of kidney and ureter; Z79.82 Long term (current) use of aspirin; Z79.899 Other long term (current) drug therapy